=== PATIENT | female | born 1995 | race Caucasian/White ===

== ENCOUNTER 2018-03-13 19:03 | Emergency (ER) | payer OTHER ==
[2018-03-13 19:13] VITALS: BP 135/83
[2018-03-13] MEDS ORDERED: diphenhydrAMINE 50 MG/ML SDV IVPUSH ONE (19:38)
[2018-03-13] MEDS ORDERED: Metoclopramide 10 MG/2 ML SDV IVPUSH ONE (19:38)
[2018-03-13] MEDS ORDERED: Sodium Chloride 0.9% 10 ML Syringe FLUSH PRN (19:38)
[2018-03-13] MEDS ORDERED: Ketorolac 30 MG/ML SDV IVPUSH ONE (19:38)
--- NOTE | 2018-03-13 19:44 | EDM.PDOC ---
ED HPI GENERAL MEDICAL PROBLEM - General Chief Complaint: Headache Stated Complaint: HEADACHE Time Seen by Provider: 03/13/18 19:22 Source of Information: Reports: Patient, RN Notes Reviewed History Limitations: Reports: No Limitations - History of Present Illness INITIAL COMMENTS - FREE TEXT/NARRATIVE: Patient is a 22 year old female who presents to the ED for the evaluation of a headache. This has been present since this AM and has been bothersome all day. She notes a prior history of migraines. She states that she tries to take ibuprofen, tylenol, excedrin and this never provides much relief. She states that she went to work with this headache and about 1.5 hours into her shift she began to feel nauseous and dizzy as well. The headache pain started mainly on the right side of her head, in the back and radiates forward to her scalp and behind her right eye. She would rate her pain at a 7/10. She states that she is light/ and sound sensitive. She notes some mild blurriness to her right visual field. She denies any type of sinus issues or being sick otherwise. She states that she only normally gets around 3 migraines/year. Headache Pain Score (Numeric/FACES): 7 - Related Data Allergies Allergy/AdvReac Type Severity Reaction Status Date / Time No Known Allergies Allergy Verified 03/13/18 19:07 Home Meds: Home Meds . 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 History: Reports: Polycystic Ovaries Neurological History: Reports: Concussion, Migraines, Seizure Other Neuro History: 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 small child concussions in high school Psychiatric History: Reports: Anxiety, Depression Endocrine/Metabolic History: Reports: Hypothyroidism - Infectious Disease History Infectious Disease History: Reports: Human Papilloma Virus (HPV) - Past Surgical History HEENT Surgical History: Reports: Oral Surgery, Tonsillectomy Social & Family History - Family History Family Medical History: Noncontributory - Tobacco Use Smoking Status *Q: Current Every Day Smoker Years of Tobacco use: 6 Packs/Tins Daily: 1 - Caffeine Use Caffeine Use: Reports: Tea - Recreational Drug Use Recreational Drug Use: Yes Drug Use in Last 12 Months: No Recreational Drug Type: Reports: Marijuana/Hashish - Living Situation & Occupation Living situation: Reports: Single, Alone Occupation: Employed ED ROS GENERAL - Review of Systems Review Of Systems: See Below Constitutional: Reports: No Symptoms HEENT: Reports: Eye Pain (see hpi), Vertigo, Vision Change (see HPI). Denies: Ear Pain, Sinus Problem Respiratory: Reports: No Symptoms Cardiovascular: Reports: No Symptoms Endocrine: Reports: No Symptoms GI/Abdominal: Reports: No Symptoms : Reports: No Symptoms Musculoskeletal: Reports: No Symptoms Skin: Reports: No Symptoms Neurological: Reports: Headache Psychiatric: Reports: No Symptoms Hematologic/Lymphatic: Reports: No Symptoms Immunologic: Reports: No Symptoms - Physical Exam Exam: See Below Exam Limited By: No Limitations General Appearance: Alert, WD/WN, No Apparent Distress (pt is in darkened room) Eye Exam: Left Eye: EOMI ( several tics of nystagmus to leftward EOM), Nystagmus , Bilateral Eye: Normal Inspection, PERRL Ears: Normal External Exam, Normal Canal, Hearing Grossly Normal, Normal TMs Nose: Normal Inspection Throat/Mouth: Normal Inspection, Normal Teeth, Normal Oropharynx, No Airway Compromise Head Exam: Atraumatic, Normocephalic Neck: Normal Inspection, Supple, Non-Tender, Full Range of Motion Respiratory/Chest: No Respiratory Distress, Lungs Clear, Normal Breath Sounds, No Accessory Muscle Use, Chest Non-Tender Cardiovascular: Normal Peripheral Pulses, Regular Rate, Rhythm, No Murmur GI/Abdominal: Normal Bowel Sounds, Soft, Non-Tender, No Distention, No Mass Neuro Exam (Abbreviated): Alert, Oriented, Normal Cognition, Normal Reflexes, No Motor/Sensory Deficits Extremities: Normal Inspection, Normal Capillary Refill Psychiatric: Normal Affect, Normal Mood Skin Exam: Warm, Dry, Intact, Normal Color Course - Vital Signs Last Recorded V/S: Last Vital Signs Temp 97.1 F 03/13/18 19:10 Pulse 72 03/13/18 19:10 Resp 16 03/13/18 19:10 BP 135/83 03/13/18 19:10 Pulse Ox 100 03/13/18 19:10 - Orders/Labs/Meds Orders: Active Orders 24 hr Category Date Time Status Peripheral IV Care [RC] . DIRECTED Care 03/13/18 19:38 Ordered Sodium Chloride 0.9% [Normal Saline] 1,000 ml Med 03/13/18 19:45 Ordered IV ASDIRECTED Sodium Chloride 0.9% [Saline Flush] Med 03/13/18 19:38 Ordered 10 ml FLUSH ASDIRECTED PRN Peripheral IV Insertion Adult [OM.PC] Routine Oth 03/13/18 19:38 Ordered Medication Orders Sodium Chloride (Normal Saline) 1,000 mls @ 999 mls/hr IV ASDIRECTED ROYER Last Admin: 03/13/18 20:06 Dose: 999 mls/hr Sodium Chloride (Saline Flush) 10 ml FLUSH ASDIRECTED PRN PRN Reason: Keep Vein Open Last Admin: 03/13/18 20:06 Dose: 10 ml Meds: Medications Generic Name Dose Route Start Last Admin Trade Name Freq PRN Reason Stop Dose Admin Sodium Chloride 1,000 mls @ 999 mls/hr 03/13/18 19:45 03/13/18 20:06 Normal Saline IV 999 mls/hr ASDIRECTED ROYER Administration Sodium Chloride 10 ml 03/13/18 19:38 03/13/18 20:06 Saline Flush FLUSH 10 ml ASDIRECTED PRN Administration Keep Vein Open Discontinued Medications Generic Name Dose Route Start Last Admin Trade Name Freq PRN Reason Stop Dose Admin Diphenhydramine HCl 25 mg 03/13/18 19:38 03/13/18 20:04 Benadryl IVPUSH 03/13/18 19:39 25 mg ONETIME ONE Administration Ketorolac Tromethamine 30 mg 03/13/18 19:38 03/13/18 20:03 Toradol IVPUSH 03/13/18 19:39 30 mg ONETIME ONE Administration Metoclopramide HCl 10 mg 03/13/18 19:38 03/13/18 20:02 Reglan IVPUSH 03/13/18 19:39 10 mg ONETIME ONE Administration - Re-Assessments/Exams Free Text/Narrative Re-Assessment/Exam: 03/13/18 19:46 Pt presents to the ED for the evaluation of a headache. Have ordered IV with fluid bolus, 30 mg IV toradol, 10 mg IV reglan, 25 mg IV benadryl for initial management. 03/13/18 20:41 Pt re-assessed at bedside and she states that her headache feels much better and wishes to go home before the IV fluids are done, this is fine with me, patient will be discharged home. Departure - Departure Time of Disposition: 20:42 Disposition: Home, Self-Care 01 Condition: Fair Clinical Impression: Headache Qualifiers: Headache type: unspecified Headache chronicity pattern: acute headache Intractability: not intractable Qualified Code(s): R51 - Headache - Discharge Information *PRESCRIPTION DRUG MONITORING PROGRAM REVIEWED*: No *COPY OF PRESCRIPTION DRUG MONITORING REPORT IN PATIENT LING: No Instructions: Migraine Headache, [id number], General Headache Without Cause, [id number] Referrals: Karen Lees PA [Primary Care Provider] - Forms: ED Department Discharge Additional Instructions: You have been evaluated in the ED for your headache. You have been given medications to help alleviate this headache. If you should experience headaches in the near future, you can take ibuprofen 600mg every 6 hours as needed, with a little bit of caffeine as well to see if this does not provide you relief. Please return to ED if your symptoms should change or worsen. - My Orders Last 24 Hours: My Active Orders 03/13/18 19:38 Peripheral IV Care [RC] . DIRECTED Sodium Chloride 0.9% [Saline Flush] 10 ml FLUSH ASDIRECTED PRN Peripheral IV Insertion Adult [OM.PC] Routine 03/13/18 19:45 Sodium Chloride 0.9% [Normal Saline] 1,000 ml IV ASDIRECTED - Assessment/Plan Last 24 Hours: My Active Orders 03/13/18 19:38 Peripheral IV Care [RC] . DIRECTED Sodium Chloride 0.9% [Saline Flush] 10 ml FLUSH ASDIRECTED PRN Peripheral IV Insertion Adult [OM.PC] Routine 03/13/18 19:45 Sodium Chloride 0.9% [Normal Saline] 1,000 ml IV ASDIRECTED
[2018-03-13] MEDS ORDERED: Sodium Chloride 0.9% 1,000 ML IV SCH (19:45)
== END 2018-03-13 20:49 | disposition home or self-care (01) ==
LOC: JD.ED 19:03
DX: R51 Headache (principal); E03.9 Hypothyroidism, unspecified; F17.210 Nicotine dependence, cigarettes, uncomplicated
CPT/HCPCS: 96361; 96374; 96375; 99284; J1200; J1885; J2765; J7040

== ENCOUNTER 2018-11-22 09:47 | Emergency (ER) | payer BC ==
--- NOTE | 2018-11-22 10:08 | EDM.PDOC ---
ED HPI GENERAL MEDICAL PROBLEM - General Chief Complaint: Abdominal Pain Stated Complaint: R SIDE PAIN - 25 WKS PG/CLEARED BY OB Time Seen by Provider: 11/22/18 09:58 - History of Present Illness INITIAL COMMENTS - FREE TEXT/NARRATIVE: 23-year-old female presents emergency room with right upper quadrant pain and right back pain. This started last night after eating jambalaya. She's had some nausea associated with this without vomiting no fevers or chills. No breathing difficulties however if she takes a deep breath she does have some discomfort in this area. The pain in the right upper quadrant is subsiding at this point. She still has a little bit of residual back pain. She is slightly nauseated at this point. The patient is 25 weeks . She was seen by labor and delivery and was cleared to come to the emergency department. She is a 2 para 0 one miscarriage. 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: Reports: Polycystic Ovaries Neurological History: Reports: Concussion, Migraines, Seizure Other Neuro History: 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 small child concussions in high school Psychiatric History: Reports: Anxiety, Depression Endocrine/Metabolic History: Reports: Hypothyroidism - Infectious Disease History Infectious Disease History: Reports: Human Papilloma Virus (HPV) - Past Surgical History HEENT Surgical History: Reports: Oral Surgery, Tonsillectomy Social & Family History - Family History Family Medical History: Noncontributory - Caffeine Use Caffeine Use: Reports: Tea - Living Situation & Occupation Living situation: Reports: Single, Alone Occupation: Employed ED ROS GENERAL - Review of Systems Review Of Systems: See Below Constitutional: Reports: No Symptoms HEENT: Reports: No Symptoms Respiratory: Reports: No Symptoms, Other (Some discomfort with deep breathing, however, her breathing is not limited) Cardiovascular: Reports: No Symptoms Endocrine: Reports: No Symptoms GI/Abdominal: Reports: Nausea. Denies: Constipation, Diarrhea, Vomiting : Reports: No Symptoms Musculoskeletal: Reports: No Symptoms Skin: Reports: No Symptoms Neurological: Reports: No Symptoms ED EXAM, GI/ABD - Physical Exam Exam: See Below Exam Limited By: No Limitations General Appearance: Alert, No Apparent Distress, Other (Vital signs stable afebrile patient states that she is doing much better at this time then she was even when she came in to labor and delivery.) Head: Atraumatic, Normocephalic Neck: Normal Inspection, Supple, Non-Tender, Full Range of Motion. No: Lymphadenopathy (L), Lymphadenopathy (R) Respiratory/Chest: No Respiratory Distress, Lungs Clear, Normal Breath Sounds Cardiovascular: Regular Rate, Rhythm, No Edema, No Murmur GI/Abdominal Exam: Normal Bowel Sounds, Soft, Other (She really has no pain over the gallbladder at this point no palpable abdominal discomfort her discomfort is limited to her lower ribs in the back on the right) Back Exam: Normal Inspection. No: CVA Tenderness (L), CVA Tenderness (R) Extremities: Normal Inspection, No Pedal Edema Neurological: Alert, Oriented, Normal Cognition Psychiatric: Normal Affect, Normal Mood Skin Exam: Warm, Dry, Intact Course - Vital Signs Last Recorded V/S: Last Vital Signs Temp 36.4 C 11/22/18 09:50 Pulse 88 11/22/18 09:50 Resp 16 11/22/18 09:50 BP 109/69 11/22/18 09:50 Pulse Ox 99 11/22/18 09:50 - Orders/Labs/Meds Orders: Active Orders 24 hr Category Date Time Status CBC WITH MANUAL DIFF [HEME] Stat Lab 11/22/18 10:40 Results Labs: Laboratory Tests 11/22/18 11/22/18 11/22/18 Range/Units 10:30 10:40 10:40 WBC 10.90 H (3.98-10.04) K/mm3 RBC 3.85 L (3.98-5.22) M/mm3 Hgb 11.4 D (11.2-15.7) gm/dl Hct 33.6 L (34.1-44.9) % MCV 87.3 D (79.4-94.8) fl MCH 29.6 (25.6-32.2) pg MCHC 33.9 (32.2-35.5) g/dl RDW Std Deviation 39.8 (36.4-46.3) fL Plt Count 274 (182-369) K/mm3 MPV 9.2 L (9.4-12.3) fl Sodium 137 (136-145) mEq/L Potassium 3.6 (3.5-5.1) mEq/L Chloride 102 (98-107) mEq/L Carbon Dioxide 24 (21-32) mEq/L Anion Gap 14.6 (5-15) BUN 5 L (7-18) mg/dL Creatinine 0.6 (0.55-1.02) mg/dL Est Cr Clr Drug Dosing 131.22 mL/min Estimated GFR (MDRD) > 60 (>60) mL/min BUN/Creatinine Ratio 8.3 L (14-18) Glucose 79 (74-106) mg/dL Calcium 8.7 (8.5-10.1) mg/dL Total Bilirubin 0.4 (0.2-1.0) mg/dL Direct Bilirubin 0.10 (0.0-0.2) mg/dl Indirect Bilirubin 0.30 AST 11 L (15-37) U/L ALT 23 (14-59) U/L Alkaline Phosphatase 88 (46-116) U/L Total Protein 6.8 (6.4-8.2) g/dl Albumin 2.7 L (3.4-5.0) g/dl Globulin 4.1 gm/dL Albumin/Globulin Ratio 0.7 L (1-2) Urine Color Yellow (Yellow) Urine Appearance Clear (Clear) Urine pH 7.5 (5.0-8.0) Ur Specific [place] 1.020 (1.005-1.030) Urine Protein Negative (Negative) Urine Glucose (UA) Negative (Negative) Urine Ketones Negative (Negative) Urine Occult Blood Negative (Negative) Urine Nitrite Negative (Negative) Urine Bilirubin Negative (Negative) Urine Urobilinogen 0.2 (0.2-1.0) Ur Leukocyte Esterase Negative (Negative) Urine RBC 0-5 (0-5) /hpf Urine WBC 0-5 (0-5) /hpf Ur Squamous Epith Cells 0-5 (0-5) /hpf Urine Bacteria Few (FEW) /hpf Urine Mucus Few (FEW) /hpf - Re-Assessments/Exams Free Text/Narrative Re-Assessment/Exam: 11/22/18 11:22 Right upper quadrant pain is pretty much gone back pain is minimal. Urinalysis does not suggest any blood or signs of infection rate white count is minimally and undoubtedly insignificantly elevated at 10,800 this could be related to the . Chemistries are normal no elevated transaminases both direct and indirect bili are normal electrolytes within normal limits. Case reviewed with Dr. Hadley, on-call for Dr. Boothe, the patient will be scheduled for an outpatient gallbladder ultrasound and the patient will follow-up with Dr. Boothe the day after the ultrasound. Patient will continue use Tylenol as needed for discomfort. Departure - Departure Time of Disposition: 11:25 Disposition: Home, Self-Care 01 Clinical Impression: Right upper quadrant abdominal pain affecting - Discharge Information Referrals: Chilo Boothe MD [Primary Care Provider] - Forms: ED Department Discharge Additional Instructions: Return to emergency room if any questions problems worsening symptoms. Return immediately if he developed a fever. Get the gallbladder ultrasound done as scheduled. Use Tylenol as needed for discomfort rated. Push lots of fluids avoid fatty meals. - My Orders Last 24 Hours: My Active Orders 11/22/18 10:40 CBC WITH MANUAL DIFF [HEME] Stat - Assessment/Plan Last 24 Hours: My Active Orders 11/22/18 10:40 CBC WITH MANUAL DIFF [HEME] Stat
[2018-11-22 11:46] VITALS: BP 114/65; PULSE 85
--- NOTE | 2018-11-23 08:29 | PCM.SN ---
- Free Text/Narrative Note: 23-year-old estimated date of delivery 03/06/2019 resented to labor and delivery on 11/22/18.5 weeks estimated gestational age complaining of right upper quadrant pain. She's had this pain for over a year and a half it comes and goes. Patient was seen in labor and delivery to confirm no contractions. Blood pressure was normal. Cervix long close posterior firm. Patient sent to the emergency room for evaluation of right upper quadrant pain. See their note. [id number].25 Right upper quadrant pain.
== END 2018-11-22 11:45 | disposition home or self-care (01) ==
LOC: JD.ED 09:47
DX: O26.892 Other specified pregnancy related conditions, second trimester (principal); R10.11 Right upper quadrant pain; O99.512 Diseases of the respiratory system complicating pregnancy, second trimester; J45.909 Unspecified asthma, uncomplicated; Z88.8 Allergy status to other drugs, medicaments and biological substances; Z3A.25 25 weeks gestation of pregnancy
CPT/HCPCS: 36415; 80048; 80076; 81001; 85007; 85027; 99282; 99284

== ENCOUNTER 2019-03-05 06:54 | Inpatient (IN) | payer BC ==
[~2019-03-05 06:54] MED LIST: Bupivacaine 0.25% 10 ML SDV ONE; Lidocaine 2% with EPINEPHrine 1:200,000 20 ML SDV ONE; Sodium Bicarbonate 8.4% 50 MEQ/50 ML SDV ONE
[2019-03-05] MEDS ORDERED: Sodium Chloride 0.9% 10 ML Syringe FLUSH PRN (07:07)
[2019-03-05] MEDS ORDERED: Nalbuphine 10 MG/ML Syringe IVPUSH PRN (07:07)
[2019-03-05] MEDS ORDERED: Ondansetron 4 MG/2 ML SDV IVPUSH PRN (07:07)
[2019-03-05] MEDS ORDERED: Oxytocin/Lactated Ringers 10 UNIT/1,000 ML BAG IV SCH (07:15)
[2019-03-05] MEDS ORDERED: ePHEDrine 50 MG/ML SDV IVPUSH PRN (07:28)
[2019-03-05] MEDS ORDERED: diphenhydrAMINE 50 MG/ML SDV IVPUSH PRN (07:28)
[2019-03-05] MEDS: Lactated Ringers 1,000 ML IV SCH ×4 (07:49→21:52)
[2019-03-05] MEDS: Oxytocin/Lactated Ringers 10 UNIT/1,000 ML BAG IV SCH ×2 (07:49→18:52)
--- NOTE | 2019-03-05 10:31 | PCM.PREANE ---
Preanesthetic Assessment - Procedure Proposed Procedure: maria a - Anesthesia/Transfusion/Family Hx Anesthesia History: Prior Anesthesia Without Reaction Family History of Anesthesia Reaction: No Transfusion History: No Prior Transfusion(s) - Review of Systems General: No Symptoms Pulmonary: No Symptoms Cardiovascular: No Symptoms Gastrointestinal: No Symptoms Neurological: No Symptoms Other: Reports: Anxiety - Physical Assessment Vital Signs: Last Vital Signs Temp 98.5 F 03/05/19 07:07 Pulse 102 H 03/05/19 07:07 Resp 16 03/05/19 07:07 BP 130/76 03/05/19 07:07 Pulse Ox 95 03/05/19 07:07 Height: 5 ft 5 in Weight: 99.337 kg ASA Class: 2 Mental Status: Alert & Oriented x3 Airway Class: Mallampati = 1 Dentition: Reports: Normal Dentition Thyro-Mental Finger Breadths: 3 Mouth Opening Finger Breadths: 3 ROM/Head Extension: Full Lungs: Clear to Auscultation, Normal Respiratory Effort Cardiovascular: Regular Rate, Regular Rhythm - Lab Values: Laboratory Last Values WBC 12.02 K/mm3 (3.98-10.04) H 03/05/19 07:32 RBC 3.99 M/mm3 (3.98-5.22) 03/05/19 07:32 Hgb 11.2 gm/dl (11.2-15.7) 03/05/19 07:32 Hct 33.8 % (34.1-44.9) L 03/05/19 07:32 MCV 84.7 fl (79.4-94.8) 03/05/19 07:32 MCH 28.1 pg (25.6-32.2) 03/05/19 07:32 MCHC 33.1 g/dl (32.2-35.5) 03/05/19 07:32 RDW Std Deviation 42.2 fL (36.4-46.3) 03/05/19 07:32 Plt Count 280 K/mm3 (182-369) 03/05/19 07:32 MPV 10.0 fl (9.4-12.3) 03/05/19 07:32 Neut % (Auto) 78.5 % (34.0-71.1) H 03/05/19 07:32 Lymph % (Auto) 13.9 % (19.3-51.7) L 03/05/19 07:32 Lares % (Auto) 6.2 % (4.7-12.5) 03/05/19 07:32 Eos % (Auto) 0.9 (0.7-5.8) 03/05/19 07:32 Baso % (Auto) 0.1 % (0.1-1.2) 03/05/19 07:32 Neut # (Auto) 9.43 K/mm3 (1.56-6.13) H 03/05/19 07:32 Lymph # (Auto) 1.67 K/mm3 (1.18-3.74) 03/05/19 07:32 Lares # (Auto) 0.75 K/mm3 (0.24-0.36) H 03/05/19 07:32 Eos # (Auto) 0.11 K/mm3 (0.04-0.36) 03/05/19 07:32 Baso # (Auto) 0.01 K/mm3 (0.01-0.08) 03/05/19 07:32 Manual Slide Review Normal smear 03/05/19 07:32 - Allergies Allergies/Adverse Reactions: Allergies Allergy/AdvReac Type Severity Reaction Status Date / Time No Known Allergies Allergy Verified 03/05/19 07:06 - Blood Blood Available: No - Acknowledgements Anesthesia Type Planned: Epidural Pt an Appropriate Candidate for the Planned Anesthesia: Yes Alternatives and Risks of Anesthesia Discussed w Pt/Guardian: Yes Pt/Guardian Understands and Agrees with Anesthesia Plan: Yes PreAnesthesia Questionnaire - Past Health History Medical/Surgical History: Denies Medical/Surgical History Cardiovascular History: Reports: None Respiratory History: Reports: Asthma Other Respiratory History: out grew it Gastrointestinal History: Reports: GERD Genitourinary History: Reports: Renal Calculus 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: , 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 Musculoskeletal History: Reports: Fracture Other Musculoskeletal History: 4 broken arms, broken nose x 2 Neurological History: Reports: Concussion, Migraines, Seizure Other Neuro History: 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 small child concussions in high school Psychiatric History: Reports: Anxiety, Depression Endocrine/Metabolic History: Reports: Hypothyroidism Hematologic History: Reports: Anemia - Infectious Disease History Infectious Disease History: Reports: MRSA Other Infectious Disease History: With T&A, reports she has been cleared - Past Surgical History HEENT Surgical History: Reports: Oral Surgery, Tonsillectomy - History Comment History Comment: vits - SUBSTANCE USE Smoking Status *Q: Former Smoker (quit 2 years ago) Tobacco Use Within Last Twelve Months: No Second Hand Smoke Exposure: No Days Per Week of Alcohol Use: 0 Recreational Drug Use History: No - HOME MEDS Home Medications: Home Meds . [No Known Home Meds] 03/05/19 [History] - CURRENT (IN HOUSE) MEDS Current Meds: Current Medications Diphenhydramine HCl (Benadryl) 25 mg IVPUSH Q6H PRN PRN Reason: pruritis Ephedrine Sulfate (Ephedrine Sulfate) 5 mg IVPUSH ASDIRECTED PRN PRN Reason: Hypotension Fentanyl (Sublimaze) 100 mcg EPIDUR Q3H PRN PRN Reason: Pain Fentanyl/Bupivacaine HCl (Fentanyl/Bupivacaine/Ns 2 Mcg-0.125% 100 Ml) 100 ml EPIDUR CONTINUOUS PRN PRN Reason: Pain Lactated Ringer's (Ringers, Lactated) 1,000 mls @ 100 mls/hr IV ASDIRECTED ROYER Last Admin: 03/05/19 07:49 Dose: 100 mls/hr Oxytocin/Lactated Ringer's (Pitocin In Lr 10 Units/1,000 Ml) 10 unit in 1,000 mls @ 500 mls/hr IV .CONTINUOUS ROYER Oxytocin/Lactated Ringer's (Pitocin In Lr 10 Units/1,000 Ml) 10 unit in 1,000 mls @ 12 mls/hr IV TITRATE ROYER; Protocol Last Titration: 03/05/19 09:28 Dose: 12 munits/min, 72 mls/hr Nalbuphine HCl (Nubain) 10 mg IVPUSH Q2H PRN PRN Reason: Pain Ondansetron HCl (Zofran) 4 mg IVPUSH Q4H PRN PRN Reason: Nausea/Vomiting Sodium Chloride (Saline Flush) 10 ml FLUSH ASDIRECTED PRN PRN Reason: Keep Vein Open
[2019-03-05] MEDS: Bupivacaine/fentaNYL/NS 100 ML Bag EPIDUR PRN ×2 (13:12→21:51)
[2019-03-05] MEDS: fentaNYL 100 MCG/2 ML SDV EPIDUR PRN (13:12)
--- NOTE | 2019-03-05 18:53 | PCM.LDHP ---
L&D History of Present Illness - General Date of Service: 03/05/19 Admit Problem/Dx: Patient Status Order with Admit Dx/Problem 03/05/19 07:07 Patient Status [ADT] Routine Admission Diagnosis/Problem Admission Diagnosis/Problem 03/05/19 18:41 Jordyn is a 23-year-old 2 para 0010 white female who was admitted for elective induction of labor on 03/05/2019 at 39-6/7 weeks gestational age with an QAMAR of 03/06/2019. Source of Information: Patient History Limitations: Reports: No Limitations - History of Present Illness Introduction:: Jordyn is a 23-year-old 2 para 0010 white female who was admitted for elective induction of labor on 03/05/2019 at 39-6/7 weeks gestational age with an QAMAR of 03/06/2019.The procedure, risks, benefits, alternatives of care including allowing for natural onset of labor discussed in detail with patient. She appears to understand and wishes to proceed. Discussion is held her as to initially use of Pitocin followed by artificial rupture membranes to induce labor. 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 QAMAR 03/06/2019 as determined by a certain last menstrual period starting 05/30/2018 and confirmed by at least 3 ultrasounds done in clinic on 07/16/2018 at 6-4/7 weeks gestational age, at 19-3/ 7 weeks gestational age and at 24-0/7 weeks gestational age. Her course started on 07/16/2018 with initial ultrasound evaluation confirming viability and intrauterine presence of the . She was seen on a regular basis throughout the . Her weight gain was from 189 pounds to 214 pounds for a 25 pound weight gain. Vital signs are stable throughout the course. Group B strep screen is negative. Patient is planning on epidural in labor. She declines flu vaccination during course of . Her last [place] depression screening score was 12/30. This was done on 01/15/2019. Prior to that on 10/25/2018 her e- PDS was 15. She has a history of hypothyroidism. She reports she did not medication since she was 15 however. She plans to breast-feed. Her [place] noninvasive screen was negative. Patient had her T dap which was given on 12/27/2018. She had her hepatitis B immunizations in 2013. labs: Blood is a positive with a negative MRI screening. First hemoglobin was 13.6 g/dL. Platelets were 218,000. Rubella titer shows immunity. RPR nonreactive. Urine culture was negative. Hepatitis B surface antigen and HIV assays were both negative. Chlamydia and gonorrhea tests were both negative. Second trimester hemoglobin was 11.4 g/dL which time patient was started on iron sulfate at 325 mg per day. Her platelets were 306,000. Her 1 hour glucose times test was 149 which was elevated. Should this was followed by a three-hour GTT showed a fasting blood sugar of 85, 1 hour glucose of 152, a 2 hour glucose of 127, a three-hour glucose of 95. Third trimester RPR 11/28/2018 was nonreactive. Herpes strep screen was negative. Allergies: None Medications: 1. vitamins daily 2. Ferrous sulfate 325 mg by mouth daily Past medical history: 1. History of anxiety 2. History of hyperthyroidism diagnosed and she is 6 foot was taken off meds at age 15. 3. History of miscarriage 4. Fracture of right arm 3 and fracture of left arm 1. 5. Nasal fractures 2 Past surgical history: 1. Teen 8 2007 2. [place] teeth extraction Family history: Mother is alive and well but with hypothyroidism on medications. Father is alive on medications for high blood pressure, hypothyroid on medication. One brother is alive and well. Paternal grandmother mother is alive and well but did have PCOS. She has a history of miscarriage Maternal grandfather is causes unknown. Paternal grandmother is alive and well on medications for hypothyroidism. Paternal grandfather is secondary to causes unknown. There is no family history of cancer, bleeding or blood clotting disorders, anesthesia related issues or problems. Social history: Patient is single. Significant other is Maciel Mehta. She does not use any significant most alcohol, drugs or tobacco. 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 He lives in [place], [place]. Review of systems: In general patient has no complaints. Baby has been active. No significant contractions noted. Skin: Negative Lungs: No infectious symptoms or shortness of breath Cardiovascular: No chest pain or exercise intolerance Breasts: Increased size tenderness related to .. GI: Negative : Body habitus changes related to . Musculoskeletal: Negative Neurological: Negative In general the patient is well-developed, well-nourished, pleasant female of stated age in no acute distress. On last evaluation in clinic on 03/04/2019 patient's blood pressures 122/68. Weight was 214.8 pounds. Pregravid weight was 189 pounds. Height is 5 feet 5 inches. Pregravid gravid BMI was 31.9. Skin is warm dry without lesions. HEENT, neck and back within normal limits. Lungs are clear with good breath sounds in all lung nevarez. Cardiovascular exam shows regular and rhythm without murmurs. Breast exam is deferred at this time having been done first visit and found to be normal. Is planning on breast-feeding. Abdomen is gravid with last fundal height in clinic at 39 cm. Baby in vertex presentation.. Genital digital exam done in clinic 03/04/2019 shows cervix to be 2 cm dilated, 80% effaced, soft, mid position, -3 station.. Extremities and neurological exam are grossly within normal limits. Pain Score: 7 - Related Data Allergies/Adverse Reactions: Allergies Allergy/AdvReac Type Severity Reaction Status Date / Time No Known Allergies Allergy Verified 03/05/19 07:06 Home Medications: Home Meds . [No Known Home Meds] 03/05/19 [History] Past Medical History - Past Health History Medical/Surgical History: Denies Medical/Surgical History Cardiovascular History: Reports: None Respiratory History: Reports: Asthma Other Respiratory History: out grew it Gastrointestinal History: Reports: GERD Genitourinary History: Reports: Renal Calculus DRINK MIXER History: Reports: , Spontaneous Musculoskeletal History: Reports: Fracture Other Musculoskeletal History: 4 broken arms, broken nose x 2 Neurological History: Reports: Concussion, Migraines, Seizure Other Neuro History: 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 small child concussions in high school Psychiatric History: Reports: Anxiety, Depression Endocrine/Metabolic History: Reports: Hypothyroidism Hematologic History: Reports: Anemia - Infectious Disease History Infectious Disease History: Reports: MRSA Other Infectious Disease History: With T&A, reports she has been cleared - Past Surgical History HEENT Surgical History: Reports: Oral Surgery, Tonsillectomy - History Comment History Comment: vits Social & Family History - Family History Family Medical History: Noncontributory - Tobacco Use Smoking Status *Q: Former Smoker (quit 2 years ago) Second Hand Smoke Exposure: No - Caffeine Use Caffeine Use: Reports: None - Alcohol Use Days Per Week of Alcohol Use: 0 - Recreational Drug Use Recreational Drug Use: No - Living Situation & Occupation Living situation: Reports: Single, Alone Occupation: Employed H&P Review of Systems - Review of Systems: Review Of Systems: See Below L&D Exam - Exam Exam: See Below - Vital Signs Vital Signs: Last Vital Signs Temp 36.9 C 03/05/19 07:07 Pulse 102 H 03/05/19 07:07 Resp 16 03/05/19 07:07 BP 130/76 03/05/19 07:07 Pulse Ox 95 03/05/19 07:07 Weight: 99.337 kg - Patient Data Lab Results Last 24 hrs: Laboratory Results - last 24 hr 03/05/19 Range/Units 07:32 WBC 12.02 H (3.98-10.04) K/mm3 RBC 3.99 (3.98-5.22) M/mm3 Hgb 11.2 (11.2-15.7) gm/dl Hct 33.8 L (34.1-44.9) % MCV 84.7 (79.4-94.8) fl MCH 28.1 (25.6-32.2) pg MCHC 33.1 (32.2-35.5) g/dl RDW Std Deviation 42.2 (36.4-46.3) fL Plt Count 280 (182-369) K/mm3 MPV 10.0 (9.4-12.3) fl Neut % (Auto) 78.5 H (34.0-71.1) % Lymph % (Auto) 13.9 L (19.3-51.7) % [place] % (Auto) 6.2 (4.7-12.5) % Eos % (Auto) 0.9 (0.7-5.8) Baso % (Auto) 0.1 (0.1-1.2) % Neut # (Auto) 9.43 H (1.56-6.13) K/mm3 Lymph # (Auto) 1.67 (1.18-3.74) K/mm3 [place] # (Auto) 0.75 H (0.24-0.36) K/mm3 Eos # (Auto) 0.11 (0.04-0.36) K/mm3 Baso # (Auto) 0.01 (0.01-0.08) K/mm3 Manual Slide Review Normal smear Result Diagrams: 03/05/19 07:32 Problem List Initiated/Reviewed/Updated: Yes Orders Last 24hrs: Active Orders 24 hr Category Date Time Status Patient Status [ADT] Routine ADT 03/05/19 07:07 Active Activity as Tolerated [RC] PFP Care 03/05/19 07:07 Active Communication Order [RC] ASDIRECTED Care 03/05/19 07:07 Active Heart Tones [RC] ASDIRECTED Care 03/05/19 07:07 Active Non Stress Test [RC] PER UNIT ROUTINE Care 03/05/19 07:07 Active Notify Provider [RC] ASDIRECTED Care 03/05/19 07:28 Active Notify Provider [RC] PFP Care 03/05/19 07:07 Active Notify Provider [RC] PRN Care 03/05/19 07:07 Active Peripheral IV Care [RC] . DIRECTED Care 03/05/19 07:07 Active Vital Signs [RC] PER UNIT ROUTINE Care 03/05/19 07:07 Active Regular Diet [DIET] Diet 03/05/19 Breakfast Active RAPID PLASMA REAGIN,RPR [CHEM] Routine Lab 03/05/19 07:32 Received Bupivacaine/fentaNYL/NS [fentaNYL/Bupivacaine/NS 2 MCG- Med 03/05/19 07:28 Active 0.125% 100 ML] 100 ml EPIDUR CONTINUOUS PRN Lactated Ringers [Ringers, Lactated] 1,000 ml Med 03/05/19 07:15 Active IV ASDIRECTED Nalbuphine [Nubain] Med 03/05/19 07:07 Active 10 mg IVPUSH Q2H PRN Ondansetron [Zofran] Med 03/05/19 07:07 Active 4 mg IVPUSH Q4H PRN Oxytocin/Lactated Ringers [Pitocin in LR 10 Units/1,000 Med 03/05/19 07:15 Active ML] 10 unit in 1,000 ml IV .CONTINUOUS Oxytocin/Lactated Ringers [Pitocin in LR 10 Units/1,000 Med 03/05/19 07:15 Active ML] 10 unit in 1,000 ml IV TITRATE Sodium Chloride 0.9% [Saline Flush] Med 03/05/19 07:07 Active 10 ml FLUSH ASDIRECTED PRN diphenhydrAMINE [Benadryl] Med 03/05/19 07:28 Active 25 mg IVPUSH Q6H PRN ePHEDrine [ePHEDrine sulfate] Med 03/05/19 07:28 Active 5 mg IVPUSH ASDIRECTED PRN fentaNYL [Sublimaze] Med 03/05/19 07:28 Active 100 mcg EPIDUR Q3H PRN Electronic Heart Tones Ext w TOCO [WOMSER] Oth 03/05/19 07:07 Ordered Routine Electronic Heart Tones Internal [WOMSER] Per Unit Oth 03/05/19 07:07 Ordered Routine Peripheral IV Insertion Adult [OM.PC] Routine Oth 03/05/19 07:07 Ordered Resuscitation Status Routine Resus Stat 03/05/19 07:07 Ordered Medication Orders Diphenhydramine HCl (Benadryl) 25 mg IVPUSH Q6H PRN PRN Reason: pruritis Ephedrine Sulfate (Ephedrine Sulfate) 5 mg IVPUSH ASDIRECTED PRN PRN Reason: Hypotension Fentanyl (Sublimaze) 100 mcg EPIDUR Q3H PRN PRN Reason: Pain Last Admin: 03/05/19 13:12 Dose: 100 mcg Fentanyl/Bupivacaine HCl (Fentanyl/Bupivacaine/Ns 2 Mcg-0.125% 100 Ml) 100 ml EPIDUR CONTINUOUS PRN PRN Reason: Pain Last Admin: 03/05/19 13:12 Dose: 100 ml Lactated Ringer's (Ringers, Lactated) 1,000 mls @ 100 mls/hr IV ASDIRECTED ROYER Last Admin: 03/05/19 16:41 Dose: 100 mls/hr Infusion: 03/05/19 16:41 Dose: 999 mls/hr Admin: 03/05/19 13:10 Dose: 999 mls/hr Infusion: 03/05/19 13:10 Dose: 100 mls/hr Admin: 03/05/19 07:49 Dose: 100 mls/hr Oxytocin/Lactated Ringer's (Pitocin In Lr 10 Units/1,000 Ml) 10 unit in 1,000 mls @ 500 mls/hr IV .CONTINUOUS ROYER Oxytocin/Lactated Ringer's (Pitocin In Lr 10 Units/1,000 Ml) 10 unit in 1,000 mls @ 12 mls/hr IV TITRATE ROYER; Protocol Last Titration: 03/05/19 14:15 Dose: 16 munits/min, 96 mls/hr Titration: 03/05/19 13:00 Dose: 14 munits/min, 84 mls/hr Titration: 03/05/19 11:30 Dose: 18 munits/min, 108 mls/hr Titration: 03/05/19 11:00 Dose: 16 munits/min, 96 mls/hr Titration: 03/05/19 10:30 Dose: 14 munits/min, 84 mls/hr Titration: 03/05/19 09:28 Dose: 12 munits/min, 72 mls/hr Titration: 03/05/19 09:00 Dose: 10 munits/min, 60 mls/hr Titration: 03/05/19 08:35 Dose: 8 munits/min, 48 mls/hr Titration: 03/05/19 08:20 Dose: 6 munits/min, 36 mls/hr Titration: 03/05/19 08:05 Dose: 4 munits/min, 24 mls/hr Admin: 03/05/19 07:49 Dose: 2 munits/min, 12 mls/hr Nalbuphine HCl (Nubain) 10 mg IVPUSH Q2H PRN PRN Reason: Pain Last Admin: 03/05/19 13:12 Dose: 10 mg Ondansetron HCl (Zofran) 4 mg IVPUSH Q4H PRN PRN Reason: Nausea/Vomiting Sodium Chloride (Saline Flush) 10 ml FLUSH ASDIRECTED PRN PRN Reason: Keep Vein Open Assessment/Plan Comment:: 1. 39-6/7 week intrauterine with an QAMAR of 03/06/2019 admitted for elective induction of labor with Pitocin/artificial rupture membranes. 2. Group B strep screen negative 3. Patient plans to breast-feed. 4. Patient desires epidural for labor pain control 5. noninvasive genetic screen [place]) is negative 6. Patient declined flu immunization 7. Patient is rubella immune 8. The patient did receive her diphtheria, pertussis, tetanus immunization in did receive her T-dap vaccination during . Plan: 1. Pitocin induction of labor with AROM augmentation. 2. Epidural when necessary 3. CBC and RPR on admission per protocol 4. Anticipate normal spontaneous vaginal delivery 5. Routine labor care.
[2019-03-05] MEDS ORDERED: Acetaminophen 325 MG Tab PO PRN (19:47)
[2019-03-05] MEDS: Acetaminophen 325 MG Tab PO PRN (23:56)
[2019-03-06] MEDS: Lactated Ringers 1,000 ML IV SCH (00:45)
[2019-03-06] MEDS ORDERED: Ampicillin 2 GM AdvVial IV ONE (00:48)
[2019-03-06] MEDS: Ampicillin 2 GM in Sodium Chloride 0.9% 100 ML IV SCH ×3 (00:50→10:45)
[2019-03-06] MEDS: Bupivacaine/fentaNYL/NS 100 ML Bag EPIDUR PRN (03:42)
[2019-03-06] MEDS: Acetaminophen 325 MG Tab PO PRN (04:50)
[2019-03-06] MEDS ORDERED: Metoclopramide 10 MG/2 ML SDV ONE (07:08)
[2019-03-06] MEDS ORDERED: Citric Acid/Sodium Citrate Solution 30 ML Cup ONE (07:08)
[2019-03-06] MEDS ORDERED: Azithromycin 500 MG in Sodium Chloride 0.9% 250 ML IV ONE (07:11)
[2019-03-06] MEDS ORDERED: ceFAZolin 2 GM in Premix Bag 1 BAG IV ONE (07:11)
[2019-03-06] MEDS ORDERED: Citric Acid/Sodium Citrate Solution 30 ML Cup PO ONE (07:11)
[2019-03-06] MEDS ORDERED: Metoclopramide 10 MG/2 ML SDV IVPUSH ONE (07:11)
[2019-03-06] MEDS ORDERED: Morphine PF 10 MG/10 ML SDV ONE (07:13)
[2019-03-06] MEDS ORDERED: Bupivacaine 0.5% 30 ML SDV ONE (07:13)
[2019-03-06] MEDS ORDERED: Ondansetron 4 MG/2 ML SDV ONE (07:13)
[2019-03-06] MEDS ORDERED: ceFAZolin 1 GM Vial ONE (07:13)
[2019-03-06] MEDS ORDERED: Oxytocin 10 Units/1 ML SDV ONE ×2 (07:13→08:16)
[2019-03-06] MEDS ORDERED: Ketorolac 30 MG/ML SDV ONE (07:13)
[2019-03-06] MEDS ORDERED: Lactated Ringers 2,000 ML ONE (07:13)
--- NOTE | 2019-03-06 07:18 | PCM.SN ---
- Free Text/Narrative Note: Labor progress note: Jordyn was induced starting on the a.m. of 02/25/2019. She made slow progress to approximately 3-4 centers and more rapid progress to 8 cm. Since that time patient has slowed in her continued progression of dilation and descent. She became completely dilated at approximately 0430 hrs. on 03/06/2019. Contraction intensity and frequency has been monitored for the last 5 hours with an internal pressure catheter. Contractions are felt to be adequate with adequate [place] units noted. She has brought the baby's head down to +3 station with significant caput termination. She has however failed to bring it passed that area and deliver. Discussion is held with her as to options of therapy including an attempt at vacuum extraction delivery, its risks, benefits and limitations. Also a primary section. Risks benefits and limitations and follow-up. She appears understand and wishes to proceed to primary section. Assessment: 1. 40-0/7 week intrauterine , failure to progress with suspected large baby. 2. Low degree of fever and patient has been on ampicillin started during labor. 3. Relatively low risk for surgery. Plan: 1. Routine preoperative prep including Reglan and Bicitra. Consent has been signed. 2. Type and screen will be done. 3. Primary lower uterine segment transverse section through Eduardo skin incision. Will attempt to use epidural catheter for epidural anesthesia for the surgeon section. No 4. DVT prophylaxis with SCDs 5. Infection prophylaxis with 2 g Ancef preop will also give azithromycin per protocol because of labor/rupture membranes and low-grade fever.
[2019-03-06] MEDS: fentaNYL 100 MCG/2 ML SDV EPIDUR PRN (07:25)
[2019-03-06] MEDS ORDERED: Lactated Ringers 1,000 ML ONE (08:15)
[2019-03-06] MEDS ORDERED: diphenhydrAMINE 50 MG/ML SDV IVPUSH PRN ×2 (08:23→10:27)
[2019-03-06] MEDS ORDERED: Ondansetron 4 MG/2 ML SDV IVPUSH PRN (08:23)
--- NOTE | 2019-03-06 08:55 | PCM.OPNOTE ---
- General Post-Op/Procedure Note Date of Surgery/Procedure: 03/06/19 Operative Procedure(s): Primary lower uterine segment transverse section through Pfannenstiel skin incision under epidural anesthesia Findings: Uterus, tubes and ovaries consistent with normal term . Baby in vertex presentation. head in a right occiput posterior position. Amniotic fluid clear. Male weighing 8 lbs. 6 oz. (3810 g), Apgars of 9 and 9 born at 0757 on 03/06/2019. Pre Op Diagnosis: 1. 40-0/7 week . 2. Failure to progresssecond stage of labor Post-Op Diagnosis: Same Anesthesia Technique: Epidural, Local Other Anesthesia Type: Marcaine 0.5%20 mL totallocal Primary Surgeon: Chilo Boothe Secondary Surgeon: Luther Hadley Anesthesia Provider: Kenneth Kapadia Test Grader: Christiano Duvall Reason Test Grader Was Necessary: Retraction, assistance, patient safety, quality of care. Fluid Replacement, Intraop: 2,000 Output, Urine Amount: 300 EBL in mLs: 600 Drain/Tube Comments:: Indwelling bladder catheter Complications: None Condition: Good Free Text/Narrative:: Intake & Output 03/05/19 03/06/19 03/06/19 22:59 06:59 14:59 Intake Total 3950 2200 Output Total 800 1400 Balance 3150 800 Surgery duration: 40 minutes Surgery duration: Procedure: The patient is appropriately consented. Patient was transferred to the room and placed in a sitting position. Spinal anesthesia was administered. After confirmation of adequate anesthesia patient was placed in a supine position with a wedge under her right side to facilitate left lateral positioning. The patient was prepped and draped in usual fashion after Sullivan catheter was already placed . The anesthetic was checked and found to be adequate. 20 mL of Marcaine 0.5% was injected locally in the Pfannenstiel incision site. The Pfannenstiel skin incision was then made and carried down through skin, subcutaneous and fascial layers. The fascia was then undermined superiorly and inferiorly to allow for adequate operating room. The recti muscles midline and preperitoneal fat was bluntly dissected. Peritoneal cavity was entered longitudinally. The vesicouterine peritoneum was then incised transversely and bladder flap was developed. Myometrium was incised transversely to the level of the amniotic sac. This incision was extended bilaterally in a blunt fashion. The amniotic sac was then ruptured resulting in clear amniotic fluid. A hand is placed in the low uterine segment and the baby's head was brought forth through the incision. The baby was completely delivered using fundal pressure in a routine fashion. The nose and mouth were bulb suctioned. Baby's cord was clamped x2 cut and baby was handed off to attending sharepoint analyst Dr Castro. Placenta was expressed after cord blood was obtained. Uterus was then exteriorized to allow for easier closure. The cervix was assessed and found to be dilated adequately to allow egress of blood. The uterus was closed in 2 layers. The first layer a running locked suture of 0 Monocryl, the second layer a running locked vertical mattress suture of 0 Monocryl. Hemostasis confirmed at this time. Sponge instrument needle counts are correct. The uterus was returned to the abdominal cavity and lateral gutters were cleared of blood. Once again sponge needle counts are correct. The anterior abdominal wall was closed with a #1 PDS suture from angle to angle. The subcutaneous area was found to be free of any bleeders. Skin was closed with a running subcuticular stitch of 3-0 Monocryl in a vertical mattress suture fashion using a David needle. Prineo mesh/glue was then applied to further approximate the incision. It should be noted that patient received 2 g of Ancef preoperatively for infection prophylaxis and had Pitocin infused after delivery of the placenta to facilitate uterine contraction. She also had sequential compression stockings in place for DVT prophylaxis. Patient was discharged from the operating room in satisfactory condition.
--- NOTE | 2019-03-06 09:13 | PCM.POSTAN ---
POST ANESTHESIA ASSESSMENT - MENTAL STATUS Mental Status: Alert, Oriented - VITAL SIGNS Vital Signs: Last Vital Signs Temp 98.2 F 03/06/19 09:00 Pulse 62 03/06/19 09:00 Resp 15 03/06/19 09:00 BP 106/55 L 03/06/19 09:00 Pulse Ox 95 03/06/19 09:00 - RESPIRATORY Respiratory Status: Respiratory Rate WNL, Airway Patent, O2 Saturation Stable, Supplemental Oxygen - CARDIOVASCULAR CV Status: Pulse Rate WNL, Blood Pressure Stable - GASTROINTESTINAL GI Status: No Symptoms - PAIN Pain Score: 0 (post epidural) - POST OP HYDRATION Hydration Status: Adequate & Stable
[2019-03-06] MEDS ORDERED: Ondansetron 4 MG/2 ML SDV IV PRN (10:27)
[2019-03-06] MEDS ORDERED: Dextrose 5%-Lactated Ringers 1,000 ML IV SCH (10:27)
[2019-03-06] MEDS ORDERED: Naloxone 0.4 MG/ML SDV IVPUSH PRN (10:27)
[2019-03-06] MEDS ORDERED: ePHEDrine 50 MG/ML SDV IVPUSH PRN (10:27)
[2019-03-06] MEDS ORDERED: Docusate Sodium 100 MG Cap PO PRN (10:27)
[2019-03-06] MEDS: Prenatal Multivitamin with Calcium/Folic Acid/Iron Tab PO SCH (10:47)
[2019-03-06] MEDS: Ibuprofen 800 MG Tab PO SCH ×2 (14:24→22:02)
[2019-03-07] MEDS: Acetaminophen/oxyCODONE 325-5 MG Tab PO PRN ×3 (00:48→22:03)
--- NOTE | 2019-03-07 05:58 | PCM.SN ---
- Free Text/Narrative Note: note: Postoperative day one Patient is doing well in the period. Minimal lochia, voiding well, ambulated without problems. Nursing without concerns. Pain control is adequate. Patient is afebrile, vital signs are stable Abdomen is flat, soft, uterus is below the umbilicus and is firm and nontender. Incisions intact relatively dry. Legs are nontender. Assessment: /postoperative day #1 recovery going well. Plan: Routine care. Please activity. DC IV and Sullivan. CBC pending Patient be discharged home within the next 24-48 hours.
[2019-03-07] MEDS: Ibuprofen 800 MG Tab PO SCH ×3 (06:15→21:55)
[2019-03-07] MEDS: Prenatal Multivitamin with Calcium/Folic Acid/Iron Tab PO SCH (14:02)
--- NOTE | 2019-03-07 15:38 | PCM48HPAN ---
Post Anesthesia Note - EVALUATION WITHIN 48HRS OF ANESTHETIC Vital Signs in Normal Range: Yes Patient Participated in Evaluation: Yes Respiratory Function Stable: Yes Airway Patent: Yes Cardiovascular Function Stable: Yes Hydration Status Stable: Yes Nausea and Vomiting Control Satisfactory: Yes Mental Status Recovered: Yes Vital Signs: Last Vital Signs Temp 99.1 F 03/07/19 15:20 Pulse 87 03/07/19 14:08 Resp 16 03/07/19 14:08 BP 124/77 03/07/19 14:08 Pulse Ox 93 L 03/07/19 14:08 - COMMENTS/OBSERVATIONS Free Text/Narrative:: Ambulating, denies backache, numbness /tingling in LE, no problems urinating
[2019-03-08] MEDS: Ibuprofen 800 MG Tab PO SCH ×2 (07:54→09:10)
[2019-03-08 08:44] VITALS: BP 132/81
[2019-03-08] MEDS: Prenatal Multivitamin with Calcium/Folic Acid/Iron Tab PO SCH (09:10)
[2019-03-08 09:46] VITALS: PULSE 77
--- NOTE | 2019-03-08 10:19 | PCM.DCSUM1 ---
Discharge Summary - Hospital Course Free Text/Narrative:: Jordyn is a 23-year-old 2 now para 1011 white female who was admitted on 03/05/2019 for elective induction of labor. She underwent induction of labor which progressed to complete cervical dilation. She pushed for approximately 3 hours and decision was made to proceed to primary section for failure to progress during second stage. She underwent a primary section on and delivered a viable, ta, male weighing 8 lbs. 6 oz. ( 3810 g), Apgars of 9 and 9 born at 0757 hrs. on [birth year]06/2019. Patient has induced at 40-0/7 weeks gestational age. patient has done very well. She is made good ambulatory, bowel and bladder recovery. Vital signs and stable. Patient been afebrile. Follow-up CBC showed a hemoglobin which is 9.3. Patient is doing well with that hemoglobin. She is nursing without problems. Pain was then controlled with and Percocet. Patient is desiring discharge home. Diagnosis: Stroke: No - Discharge Data Discharge Date: 03/08/19 Discharge Disposition: Home, Self-Care 01 Condition: Good - Referral to Home Health Primary Care Physician: Chilo Boothe MD - Patient Summary/Data Operative Procedure(s) Performed: Primary lower uterine segment transverse section through Pfannenstiel skin incision under epidural anesthesia - Patient Instructions Diet: Regular Diet as Tolerated (Nursing diet and increase calories and calcium is recommended.) Activity: As Tolerated (No intercourse or tampons until bleeding resolves. No lifting greater than 15 pounds or driving a car 1 week.) Driving: Do Not Drive Showering/Bathing: May Shower Wound/Incision Care: Keep Operative Site/Wound Site Clean and Dry Notify Provider of: Fever, Increased Pain, Swelling and Redness, Nausea and/or Vomiting - Discharge Plan Home Medications: Home Meds Acetaminophen/oxyCODONE [Percocet 325-5 MG] 2 tab PO Q4H PRN tablet 03/08/19 [ Rx] Ibuprofen [Motrin] 800 mg PO Q8H tablet 03/08/19 [Rx] Vit with Ca/FA/Iron [ Plus Iron] 1 each PO DAILY tablet [Rx] Referrals: Chilo Boothe MD [Primary Care Provider] - (Return to clinicDr. Tl2 weeks.) - Discharge Summary/Plan Comment DC Time >30 min.: No Discharge Summary/Plan Comment: Discharge instructions: 1. Discharge home 2. Diet, activity and follow-up discussed with patient. Recommend nursing diet with increased calories and calcium. 3. Precautions given concern increased pain, bleeding, temperature, signs/ symptoms of DVT/PE. 4. Medications per home medication was printed, discussed with and given to the patient. 5. Return to clinic-Dr. Boothe[facility] in 2 weeks. Diagnosis: Term -delivered by section Condition: Good - Patient Data Vitals - Most Recent: Last Vital Signs Temp 36.7 C 03/08/19 08:41 Pulse 85 03/08/19 08:41 Resp 16 03/08/19 08:41 BP 132/81 03/08/19 08:41 Pulse Ox 97 03/08/19 08:41 Weight - Most Recent: 99.337 kg Med Orders - Current: Current Medications Diphenhydramine HCl (Benadryl) 25 mg IVPUSH Q6H PRN PRN Reason: Itching or Nausea Docusate Sodium (Colace) 100 mg PO Q12H PRN PRN Reason: Constipation Ephedrine Sulfate (Ephedrine Sulfate) 5 mg IVPUSH SEECOMMENT PRN PRN Reason: Other Ibuprofen (Motrin) 800 mg PO Q8H [facility] Last Admin: 03/08/19 09:10 Dose: 800 mg Naloxone HCl (Narcan) 0.1 mg IVPUSH SEECOMMENT PRN PRN Reason: Respiratory Depression Ondansetron HCl (Zofran) 4 mg IV Q4H PRN PRN Reason: Nausea/Vomiting Oxycodone/Acetaminophen (Percocet 325-5 Mg) 2 tab PO Q4H PRN PRN Reason: Pain (severe 7-10) Last Admin: 03/07/19 22:03 Dose: 2 tab Prenat Multivit/[place]/Iron/Folic Ac ( Plus Iron) 1 each PO DAILY [facility] Last Admin: 03/08/19 09:10 Dose: 1 each Discontinued Medications Acetaminophen (Tylenol) 650 mg PO Q6HR PRN PRN Reason: Headache/Pain Last Admin: 03/05/19 19:57 Dose: 650 mg Acetaminophen (Tylenol) 650 mg PO Q4H PRN PRN Reason: Fever Last Admin: 03/06/19 04:50 Dose: 650 mg Ampicillin Sodium (Ampicillin) Confirm Administered Dose 2 gm IV .STK-MED ONE Stop: 03/06/19 00:49 Last Admin: 03/06/19 10:46 Dose: Not Given Bupivacaine HCl (Marcaine 0.5%) Confirm Administered Dose 30 ml .ROUTE .[facility]-MED ONE Stop: 03/06/19 07:14 Last Admin: 03/06/19 07:47 Dose: 20 ml Bupivacaine HCl (Sensorcaine-Mpf 0.25%) 10 ml .ROUTE .ST-MED ONE Stop: 03/05/19 00:01 Cefazolin Sodium (Ancef) Confirm Administered Dose 2 gm .ROUTE .[facility]-MED ONE Stop: 03/06/19 07:14 Citric Acid/Sodium Citrate (Bicitra Solution) Confirm Administ[facility] Stop: 03/06/19 07:09 Last Admin: 03/06/19 10:46 Dose: Not Given Citric Acid/Sodium Citrate (Bicitra Solution) 30 ml PO ONETIME ONE Stop: 03/06/19 07:12 Last Admin: 03/06/19 07:26 Dose: 30 ml Diphenhydramine HCl (Benadryl) 25 mg IVPUSH Q6H PRN PRN Reason: pruritis Diphenhydramine HCl (Benadryl) 25 mg IVPUSH Q6H PRN PRN Reason: Pruritis Ephedrine Sulfate (Ephedrine Sulfate) 5 mg IVPUSH ASDIRECTED PRN PRN Reason: Hypotension Fentanyl (Sublimaze) 100 mcg EPIDUR Q3H PRN PRN Reason: Pain Last Admin: 03/06/19 07:25 Dose: 100 mcg Fentanyl/Bupivacaine HCl (Fentanyl/Bupivacaine/Ns 2 Mcg-0.125% 100 Ml) 100 ml EPIDUR CONTINUOUS PRN PRN Reason: Pain Last Admin: 03/06/19 03:42 Dose: 100 ml Lactated Ringer's (Ringers, Lactated) 1,000 mls @ 100 mls/hr IV ASDIRECTED [facility]YER Last Admin: 03/06/19 00:45 Dose: 100 mls/hr Oxytocin/Lactated Ringer's (Pitocin In Lr 10 Units/1,000 Ml) 10 unit in 1,000 mls @ 500 mls/hr IV .CONTINUOUS ROYER Oxytocin/Lactated Ringer's (Pitocin In Lr 10 Units/1,000 Ml) 10 unit in 1,000 mls @ 12 mls/hr IV TITRATE [facility]YER; Protocol Last Titration: 03/06/19 07:10 Dose: 0 munits/min, 0 mls/hr Ampicillin Sodium 2 gm/ Sodium (Chloride) 100 mls @ 200 mls/hr IV Q4H [facility] Last Admin: 03/06/19 10:45 Dose: Not Given Cefazolin Sodium/Dextrose 2 gm (/ Premix) 50 mls @ 100 mls/hr IV ONETIME ONE Stop: 03/06/19 07:40 Last Admin: 03/06/19 10:47 Dose: Not Given Azithromycin 500 mg/ Sodium (Chloride) 250 mls @ 250 mls/hr IV ONETIME ONE Stop: 03/06/19 08:10 Last Admin: 03/06/19 07:26 Dose: 250 mls/hr Lactated Ringer's (Ringers, Lactated) Confirm Administered Dose 2,000 mls @ as directed .ROUTE .STK-MED ONE Stop: 03/06/19 07:14 Lactated Ringer's (Ringers, Lactated) Confirm Administered Dose 1,000 mls @ as directed .ROUTE .STK-MED ONE Stop: 03/06/19 08:16 Dextrose/Lactated Ringer's (Dextrose 5%-Lactated Ringers) 1,000 mls @ 125 mls/ hr IV ASDIRECTED [facility]YER Stop: 03/06/19 18:26 Last Admin: 03/06/19 14:28 Dose: 125 mls/hr Ketorolac Tromethamine (Toradol) Confirm Administered Dose 30 mg .ROUTE .STK- MED ONE Stop: 03/06/19 07:14 Lidocaine/Epinephrine (Xylocaine-Mpf 2%-Epi 1:200,000) 20 ml .ROUTE .STK-MED ONE Stop: 03/05/19 00:01 Metoclopramide HCl (Reglan) Confirm Administered Dose 10 mg .ROUTE .STK-MED ONE Stop: 03/06/19 07:09 Last Admin: 03/06/19 10:47 Dose: Not Given Metoclopramide HCl (Reglan) 10 mg IVPUSH ONETIME ONE Stop: 03/06/19 07:12 Last Admin: 03/06/19 07:26 Dose: 10 mg Morphine Sulfate (Duramorph Pf) Confirm Administered Dose 10 mg .ROUTE .STK-MED ONE Stop: 03/06/19 07:14 Nalbuphine HCl (Nubain) 10 mg IVPUSH Q2H PRN PRN Reason: Pain Last Admin: 03/05/19 13:12 Dose: 10 mg Ondansetron HCl (Zofran) 4 mg IVPUSH Q4H PRN PRN Reason: Nausea/Vomiting Ondansetron HCl (Zofran) Confirm Administered Dose 4 mg .ROUTE .[employer]MED ONE Stop: 03/06/19 07:14 Ondansetron HCl (Zofran) 4 mg IVPUSH ONETIME PRN PRN Reason: Nausea/Vomiting Oxytocin (Pitocin) Confirm Administered Dose 20 unit .ROUTE .STK-MED ONE Stop: 03/06/19 07:14 Oxytocin (Pitocin) Confirm Administered Dose 20 unit .ROUTE .STK-MED ONE Stop: 03/06/19 08:17 Sodium Bicarbonate (Sodium Bicarbonate 8.4%) 50 meq .ROUTE .STK-MED ONE Stop: 03/05/19 00:01 Sodium Chloride (Saline Flush) 10 ml FLUSH ASDIRECTED PRN PRN Reason: Keep Vein Open
== END 2019-03-08 12:00 | disposition home or self-care (01) | DRG 540 ==
LOC: JD.OB 06:54 → UNDOADMOB 06:54 → JD.OB 03-06 06:54 → OBSVTOIN 03-06 07:11 → JD.OB 03-06 07:12
PROVIDERS: ADMIT Obstetrics & Gynecology; ATTEND Obstetrics & Gynecology
PROC: 10D00Z1 Extraction of Products of Conception, Low, Open Approach (ICD-10-PCS; principal; 2019-03-06)
PROC: 3E033VJ Introduction of Other Hormone into Peripheral Vein, Percutaneous Approach (ICD-10-PCS; 2019-03-06)
PROC: 10H07YZ Insertion of Other Device into Products of Conception, Via Natural or Artificial Opening (ICD-10-PCS; 2019-03-06)
DX: O48.0 Post-term pregnancy (principal); Z3A.40 40 weeks gestation of pregnancy; Z37.0 Single live birth; O62.1 Secondary uterine inertia; Z87.891 Personal history of nicotine dependence; O75.2 Pyrexia during labor, not elsewhere classified
CPT/HCPCS: 01967; 01968; 36415; 51702; 59025; 85025; 86592; 86850; 86900; 86901; 94762; A9270-GY; J0290; J0456; J0690; J1885; J2270; J2300; J2405; J2590; J2765; J3010; J3490; J7050; J7120; J7121

== ENCOUNTER 2019-11-15 17:29 | Day surgery (SDC) | payer BC ==
[2019-11-15] MEDS ORDERED: Sodium Chloride 0.9% 10 ML Syringe FLUSH PRN (18:28)
[2019-11-15] MEDS ORDERED: Ondansetron 4 MG/2 ML SDV IVPUSH ONE ×2 (18:29→19:57)
[2019-11-15] MEDS ORDERED: HYDROmorphone 0.5 MG/0.5 ML Syringe IVPUSH ONE ×3 (18:29→21:21)
[2019-11-15] MEDS ORDERED: Sodium Chloride 0.9% 1,000 ML IV STA (18:29)
[2019-11-15] MEDS ORDERED: Hyoscyamine 0.125 MG Tab.SL SL ONE (18:29)
--- NOTE | 2019-11-15 19:50 | EDM.PDOC ---
ED HPI GENERAL MEDICAL PROBLEM - General Chief Complaint: Abdominal Pain Stated Complaint: STOMACH AND BACK PAIN Time Seen by Provider: 11/15/19 17:43 Source of Information: Reports: Patient History Limitations: Reports: No Limitations - History of Present Illness INITIAL COMMENTS - FREE TEXT/NARRATIVE: Patient is a 24-year-old female presenting to the emergency department with complaints of acute right upper quadrant abdominal pain radiating through to her back, nausea, and vomiting. She states the symptoms began about 2 hours prior to coming to the ER, shortly after eating a rib eye steak for dinner. States prior to this she was feeling well. She has had pain similar to this in the past, however it usually resolves prior to being seen by a provider in the emergency department. She describes it as a burning pain and states is actually worse in her back than it is in her abdomen. She is had a number of episodes of vomiting. Denies any recent fever, chills, or diarrhea. abd Pain Score (Numeric/FACES): 10 - Related Data Allergies Allergy/AdvReac Type Severity Reaction Status Date / Time No Known Allergies Allergy Verified 11/15/19 17:46 Home Meds: Home Meds Vit with Ca/FA/Iron [ Plus Iron] 1 each PO DAILY tablet 03/08/19 [Rx] oxyCODONE 5 mg PO Q4H PRN #20 tab 11/16/19 [Rx] Past Medical History - Past Health History Medical/Surgical History: Denies Medical/Surgical History Cardiovascular History: Reports: None Respiratory History: Reports: Asthma Other Respiratory History: out grew it Gastrointestinal History: Reports: GERD Genitourinary History: Reports: Renal Calculus [employer] History: Reports: , Spontaneous Musculoskeletal History: Reports: Fracture Other Musculoskeletal History: 4 broken arms, broken nose x 2 Neurological History: Reports: Concussion, Migraines, Seizure Other Neuro History: 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 small child concussions in high school Psychiatric History: Reports: Anxiety, Depression Endocrine/Metabolic History: Reports: Hypothyroidism Hematologic History: Reports: Anemia - Infectious Disease History Infectious Disease History: Reports: MRSA Other Infectious Disease History: With T&A, reports she has been cleared - Past Surgical History HEENT Surgical History: Reports: Oral Surgery, Tonsillectomy - History Comment History Comment: vits Social & Family History - Family History Family Medical History: Noncontributory - Tobacco Use Smoking Status *Q: Never Smoker - Caffeine Use Caffeine Use: Reports: None - Recreational Drug Use Recreational Drug Use: No - Living Situation & Occupation Living situation: Reports: Single, Alone Occupation: Employed ED ROS GENERAL - Review of Systems Review Of Systems: See Below Constitutional: Reports: No Symptoms. Denies: Fever, Chills, Weakness HEENT: Reports: No Symptoms Respiratory: Reports: No Symptoms. Denies: Shortness of Breath, Cough Cardiovascular: Reports: No Symptoms Endocrine: Reports: No Symptoms GI/Abdominal: Reports: Abdominal Pain (Right upper quadrant radiating through to her back), Nausea, Vomiting : Reports: No Symptoms Musculoskeletal: Reports: No Symptoms Skin: Reports: No Symptoms Neurological: Reports: No Symptoms Psychiatric: Reports: No Symptoms Hematologic/Lymphatic: Reports: No Symptoms Immunologic: Reports: No Symptoms ED EXAM, GI/ABD - Physical Exam Exam: See Below General Appearance: Alert, Moderate Distress Respiratory/Chest: No Respiratory Distress, Lungs Clear, Normal Breath Sounds, No Accessory Muscle Use, Chest Non-Tender Cardiovascular: Normal Peripheral Pulses, Regular Rate, Rhythm, No Edema, No Gallop, No JVD, No Murmur, No Rub GI/Abdominal Exam: Normal Bowel Sounds, Soft, No Organomegaly, No Distention, No Abnormal Bruit, No Mass, Pelvis Stable, Tender (Significant right upper quadrant tenderness. Positive Steinberg sign.) Neurological: Alert, Oriented, CN II-XII Intact, Normal Cognition, Normal Gait, Normal Reflexes, No Motor/Sensory Deficits Psychiatric: Normal Affect, Normal Mood Skin Exam: Warm, Dry, Intact, Normal Color, No Rash Course - Vital Signs Last Recorded V/S: Last Vital Signs Temp 98.3 F 11/16/19 12:20 Pulse 67 11/16/19 12:20 Resp 15 11/16/19 12:20 BP 118/66 11/16/19 12:20 Pulse Ox 96 11/16/19 12:20 - Orders/Labs/Meds Orders: Active Orders 24 hr Category Date Time Status Admission Status [Patient Status] [ADT] Routine ADT 11/16/19 06:17 Active Communication Order [RC] ASDIRECTED Care 11/16/19 08:32 Active Cooling Warming Measures [RC] ASDIRECTED Care 11/16/19 08:32 Active Oxygen Therapy [RC] ASDIRECTED Care 11/16/19 08:32 Active Pulse Oximetry [RC] ASDIRECTED Care 11/16/19 08:32 Active Ready for Discharge [RC] PER UNIT ROUTINE Care 11/16/19 10:23 Active Verify Patient Consent Obtain [RC] ASDIRECTED Care 11/16/19 08:31 Active Vital Signs [RC] Q15M Care 11/16/19 08:32 Active NPO [Nothing Per Oral Diet] [DIET] Diet 11/16/19 Breakfast Active Abdomen Pelvis w Cont [CT] Stat Exams 11/15/19 19:01 Taken HYDROmorphone [Dilaudid] Med 11/16/19 08:31 Active 0.5 mg IVPUSH Q10M PRN HYDROmorphone [Dilaudid] Med 11/15/19 23:21 Active 0.5 mg IVPUSH Q1H PRN Lactated Ringers [Ringers, Lactated] 1,000 ml Med 11/16/19 08:45 Active IV ASDIRECTED Ondansetron [Zofran] Med 11/16/19 08:31 Active 4 mg IVPUSH ONETIME PRN Promethazine [Phenergan] 25 mg Med 11/15/19 23:22 Active Sodium Chloride 0.9% [Normal Saline] 50 ml IV ONETIME Remove Patch Med 11/17/19 08:30 Once 1 ea TRDERM ONETIME ONE fentaNYL [Sublimaze] Med 11/16/19 08:31 Active 50 mcg IVPUSH Q5M PRN oxyCODONE Med 11/16/19 11:20 Active 5 mg PO Q4H PRN Medication Administration Instruction [OM.PC] Routine Oth 11/16/19 08:31 Ordered Schedule Procedure [COMM] Routine Oth 11/16/19 08:30 Ordered Medication Orders Fentanyl (Sublimaze) 50 mcg IVPUSH Q5M PRN PRN Reason: Pain Hydromorphone HCl (Dilaudid) 0.5 mg IVPUSH Q1H PRN PRN Reason: Pain Hydromorphone HCl (Dilaudid) 0.5 mg IVPUSH Q10M PRN PRN Reason: Pain (severe 7-10) Promethazine HCl 25 mg/ Sodium (Chloride) 51 mls @ 100 mls/hr IV ONETIME PRN PRN Reason: Nausea Lactated Ringer's (Ringers, Lactated) 1,000 mls @ 125 mls/hr IV ASDIRECTED ROYER Last Admin: 11/16/19 11:00 Dose: 125 mls/hr Documented by: LUCILLE Miscellaneous Information (Remove Patch) 1 ea TRDERM ONETIME ONE Stop: 11/17/19 08:31 Ondansetron HCl (Zofran) 4 mg IVPUSH ONETIME PRN PRN Reason: Nausea/Vomiting Oxycodone HCl (Oxycodone) 5 mg PO Q4H PRN PRN Reason: Pain Last Admin: 11/16/19 11:47 Dose: 5 mg Documented by: LUCILLE Sodium Chloride (Saline Flush) 10 ml FLUSH ASDIRECTED PRN PRN Reason: Keep Vein Open Last Admin: 11/15/19 18:43 Dose: 10 ml Documented by: PHUONG Labs: Laboratory Tests 11/15/19 11/15/19 11/15/19 Range/Units 18:44 18:44 21:11 WBC 14.54 H (3.98-10.04) K/mm3 RBC 5.30 H (3.98-5.22) M/mm3 Hgb 14.3 D (11.2-15.7) gm/dl Hct 43.2 (34.1-44.9) % MCV 81.5 D (79.4-94.8) fl MCH 27.0 (25.6-32.2) pg MCHC 33.1 (32.2-35.5) g/dl RDW Std Deviation 40.2 (36.4-46.3) fL Plt Count 397 H D (182-369) K/mm3 MPV 9.1 L (9.4-12.3) fl Neut % (Auto) 73.8 H (34.0-71.1) % Lymph % (Auto) 18.6 L (19.3-51.7) % Barry % (Auto) 6.5 (4.7-12.5) % Eos % (Auto) 0.6 L (0.7-5.8) Baso % (Auto) 0.2 (0.1-1.2) % Neut # (Auto) 10.72 H (1.56-6.13) K/mm3 Lymph # (Auto) 2.71 (1.18-3.74) K/mm3 Barry # (Auto) 0.94 H (0.24-0.36) K/mm3 Eos # (Auto) 0.09 (0.04-0.36) K/mm3 Baso # (Auto) 0.03 (0.01-0.08) K/mm3 Manual Slide Review Normal smear Sodium 142 (136-145) mEq/L Potassium 3.8 (3.5-5.1) mEq/L Chloride 102 (98-107) mEq/L Carbon Dioxide 29 (21-32) mEq/L Anion Gap 14.8 (5-15) BUN 14 (7-18) mg/dL Creatinine 0.8 (0.55-1.02) mg/dL Est Cr Clr Drug Dosing 97.57 mL/min Estimated GFR (MDRD) > 60 (>60) mL/min BUN/Creatinine Ratio 17.5 (14-18) Glucose 110 H (74-106) mg/dL Calcium 9.5 (8.5-10.1) mg/dL Total Bilirubin 0.7 (0.2-1.0) mg/dL AST 28 (15-37) U/L ALT 37 (14-59) U/L Alkaline Phosphatase 94 (46-116) U/L C-Reactive Protein 1.1 H* (<1.0) mg/dL Total Protein 8.4 H (6.4-8.2) g/dl Albumin 4.3 (3.4-5.0) g/dl Globulin 4.1 gm/dL Albumin/Globulin Ratio 1.1 (1-2) Lipase 107 (73-393) U/L Urine Color (Yellow) Urine Appearance (Clear) Urine pH (5.0-8.0) Ur Specific [place] (1.005-1.030) Urine Protein (Negative) Urine Glucose (UA) (Negative) Urine Ketones (Negative) Urine Occult Blood (Negative) Urine Nitrite (Negative) Urine Bilirubin (Negative) Urine Urobilinogen (0.2-1.0) Ur Leukocyte Esterase (Negative) Urine RBC (0-5) /hpf Urine WBC (0-5) /hpf Ur Squamous Epith Cells (0-5) /hpf Urine Bacteria (FEW) /hpf Urine Mucus (FEW) /hpf Urine HCG, Qual (NEGATIVE) SARS-CoV-2 RNA (LAKISHA) Negative (NEGATIVE) 11/15/19 11/15/19 Range/Units 21:40 21:40 WBC (3.98-10.04) K/mm3 RBC (3.98-5.22) M/mm3 Hgb (11.2-15.7) gm/dl Hct (34.1-44.9) % MCV (79.4-94.8) fl MCH (25.6-32.2) pg MCHC (32.2-35.5) g/dl RDW Std Deviation (36.4-46.3) fL Plt Count (182-369) K/mm3 MPV (9.4-12.3) fl Neut % (Auto) (34.0-71.1) % Lymph % (Auto) (19.3-51.7) % Barry % (Auto) (4.7-12.5) % Eos % (Auto) (0.7-5.8) Baso % (Auto) (0.1-1.2) % Neut # (Auto) (1.56-6.13) K/mm3 Lymph # (Auto) (1.18-3.74) K/mm3 Barry # (Auto) (0.24-0.36) K/mm3 Eos # (Auto) (0.04-0.36) K/mm3 Baso # (Auto) (0.01-0.08) K/mm3 Manual Slide Review Sodium (136-145) mEq/L Potassium (3.5-5.1) mEq/L Chloride (98-107) mEq/L Carbon Dioxide (21-32) mEq/L Anion Gap (5-15) BUN (7-18) mg/dL Creatinine (0.55-1.02) mg/dL Est Cr Clr Drug Dosing mL/min Estimated GFR (MDRD) (>60) mL/min BUN/Creatinine Ratio (14-18) Glucose (74-106) mg/dL Calcium (8.5-10.1) mg/dL Total Bilirubin (0.2-1.0) mg/dL AST (15-37) U/L ALT (14-59) U/L Alkaline Phosphatase (46-116) U/L C-Reactive Protein (<1.0) mg/dL Total Protein (6.4-8.2) g/dl Albumin (3.4-5.0) g/dl Globulin gm/dL Albumin/Globulin Ratio (1-2) Lipase (73-393) U/L Urine Color Yellow (Yellow) Urine Appearance Clear (Clear) Urine pH 7.0 (5.0-8.0) Ur Specific [place] 1.015 (1.005-1.030) Urine Protein Negative (Negative) Urine Glucose (UA) Negative (Negative) Urine Ketones Negative (Negative) Urine Occult Blood Trace-intact H (Negative) Urine Nitrite Negative (Negative) Urine Bilirubin Negative (Negative) Urine Urobilinogen 0.2 (0.2-1.0) Ur Leukocyte Esterase Negative (Negative) Urine RBC 0-5 (0-5) /hpf Urine WBC 0-5 (0-5) /hpf Ur Squamous Epith Cells 5-10 H (0-5) /hpf Urine Bacteria Few (FEW) /hpf Urine Mucus Few (FEW) /hpf Urine HCG, Qual Negative (NEGATIVE) SARS-CoV-2 RNA (LAKISHA) (NEGATIVE) Meds: Medications Generic Name Dose Route Start Last Admin Trade Name Maria Luisa PRN Reason Stop Dose Admin Fentanyl 50 mcg 11/16/19 08:31 Sublimaze IVPUSH Q5M PRN Pain Hydromorphone HCl 0.5 mg 11/15/19 23:21 Dilaudid IVPUSH Q1H PRN Pain Hydromorphone HCl 0.5 mg 11/16/19 08:31 Dilaudid IVPUSH Q10M PRN Pain (severe 7-10) Promethazine HCl 25 mg/ Sodium 51 mls @ 100 mls/hr 11/15/19 23:22 Chloride IV ONETIME PRN Nausea Lactated Ringer's 1,000 mls @ 125 mls/hr 11/16/19 08:45 11/16/19 11:00 Ringers, Lactated IV 125 mls/hr ASDIRECTED ROYER Administration Miscellaneous Information 1 ea 11/17/19 08:30 Remove Patch TRDERM 11/17/19 08:31 ONETIME ONE Ondansetron HCl 4 mg 11/16/19 08:31 Zofran IVPUSH ONETIME PRN Nausea/Vomiting Oxycodone HCl 5 mg 11/16/19 11:20 11/16/19 11:47 Oxycodone PO 5 mg Q4H PRN Administration Pain Sodium Chloride 10 ml 11/15/19 18:28 11/15/19 18:43 Saline Flush FLUSH 10 ml ASDIRECTED PRN Administration Keep Vein Open Discontinued Medications Generic Name Dose Route Start Last Admin Trade Name Maria Luisa PRN Reason Stop Dose Admin Bupivacaine HCl/Epinephrine Bitart Confirm 11/16/19 08:35 11/16/19 09:29 Marcaine 0.5%/Epinephrine 1:200,000 Administered 11/16/19 08:36 30 ml Dose Administration 50 ml .ROUTE .STK-MED ONE Cefazolin Sodium Confirm 11/16/19 09:26 Ancef Administered 11/16/19 09:27 Dose 1 gm .ROUTE .STK-MED ONE Dexamethasone Confirm 11/16/19 08:12 Dexamethasone Administered 11/16/19 08:13 Dose 20 mg .ROUTE .STK-MED ONE Dexmedetomidine HCl Confirm 11/16/19 08:12 Precedex Administered 11/16/19 08:13 Dose 200 mcg .ROUTE .STK-MED ONE Diatrizoate Meglum/Diatrizoate Sod 120 ml 11/15/19 20:35 11/15/19 20:59 Gastrografin 37% PO 11/15/19 20:36 120 ml ONETIME ONE Administration Ephedrine Sulfate Confirm 11/16/19 10:01 Ephedrine Sulfate Administered 11/16/19 10:02 Dose 50 mg .ROUTE .STK-MED ONE Fentanyl Confirm 11/16/19 08:13 Sublimaze Administered 11/16/19 08:14 Dose 100 mcg .ROUTE .STK-MED ONE Hydromorphone HCl 0.5 mg 11/15/19 18:29 11/15/19 18:42 Dilaudid IVPUSH 11/15/19 18:30 0.5 mg ONETIME ONE Administration Hydromorphone HCl 0.5 mg 11/15/19 19:47 11/15/19 19:55 Dilaudid IVPUSH 11/15/19 19:48 0.5 mg ONETIME ONE Administration Hydromorphone HCl 0.5 mg 11/15/19 21:21 11/15/19 21:40 Dilaudid IVPUSH 11/15/19 21:22 0.5 mg ONETIME ONE Administration Hyoscyamine 0.25 mg 11/15/19 18:29 11/15/19 18:43 Hyomax-Sl SL 11/15/19 18:30 0.25 mg ONETIME ONE Administration Sodium Chloride 1,000 mls @ 999 mls/hr 11/15/19 18:29 11/15/19 18:43 Normal Saline IV 11/15/19 19:29 999 mls/hr NOW STA Administration Piperacillin Sod/Tazobactam 100 mls @ 200 mls/hr 11/15/19 20:52 11/15/19 21:12 Sod 4.5 gm/ Sodium Chloride IV 11/15/19 21:21 200 mls/hr ONETIME ONE Administration Lidocaine HCl Confirm 11/16/19 08:12 Xylocaine-Mpf 1% Administered 11/16/19 08:13 Dose 4 mls @ as directed .ROUTE .STK-MED ONE Iopamidol 100 ml 11/15/19 20:35 11/15/19 20:59 Isovue-300 (61%) IVPUSH 11/15/19 20:36 100 ml ONETIME ONE Administration Ketorolac Tromethamine Confirm 11/16/19 08:12 Toradol Administered 11/16/19 08:13 Dose 30 mg .ROUTE .STK-MED ONE Miscellaneous Medication Confirm 11/16/19 09:34 Phenylephrine 1 Mg/10 Ml-Ns Administered 11/16/19 09:35 Dose 1 mg .ROUTE .STK-MED ONE Morphine Sulfate Confirm 11/16/19 09:37 Morphine Administered 11/16/19 09:38 Dose 10 mg .ROUTE .STK-MED ONE Ondansetron HCl 4 mg 11/15/19 18:29 11/15/19 18:42 Zofran IVPUSH 11/15/19 18:30 4 mg ONETIME ONE Administration Ondansetron HCl 4 mg 11/15/19 19:57 11/15/19 20:00 Zofran IVPUSH 11/15/19 19:58 4 mg ONETIME ONE Administration Ondansetron HCl Confirm 11/16/19 08:12 Zofran Administered 11/16/19 08:13 Dose 4 mg .ROUTE .STK-MED ONE Propofol Confirm 11/16/19 08:12 Diprivan 20 Ml Administered 11/16/19 08:13 Dose 200 mg .ROUTE .STK-MED ONE Propofol Confirm 11/16/19 09:21 Diprivan 20 Ml Administered 11/16/19 09:22 Dose 200 mg .ROUTE .STK-MED ONE Rocuronium [place] Confirm 11/16/19 08:12 Zemuron Administered 11/16/19 08:13 Dose 50 mg .ROUTE .STK-MED ONE Scopolamine 0 mg 11/16/19 08:31 Transderm-Scop TRDERM 11/16/19 08:32 ONETIME ONE Sodium Chloride 10 ml 11/15/19 20:35 11/15/19 20:59 Saline Flush FLUSH 11/15/19 20:36 10 ml ONETIME ONE Administration - Re-Assessments/Exams Free Text/Narrative Re-Assessment/Exam: Patient is a 24-year-old female presenting to the emergency department with complaints of acute right upper quadrant abdominal pain radiating through to her back. Describes it as a burning intense pain. Symptoms began about 30 minutes after eating a rib eye steak for dinner. She denies any known gallbladder dysfunction, however states she has had pain in this area off and on in the past but usually resolves without intervention. She is also had nausea and vomiting accompanying this pain. Denies any fever or chills. On exam, she does have significant right upper quadrant tenderness with a positive Steinberg sign. Since it is only been 2 hours since she ate, we will do a CT scan of her abdomen pelvis with contrast as opposed to an ultrasound the right upper quadrant. I will order a CBC, CMP, lipase, urinalysis, qualitative hCG. I will give her 1 L bolus of normal saline, Zofran 4 mg IV for nausea, Dilaudid 0.5 mg IV for pain, and Levsin 0.5 mg sublingual. 11/15/192114 Hematology was significant for WBC elevated at 15.54, platelets 397, CRP 1.1. Liver enzymes, bili, alkaline phosphatase, lipase were all within the normal ranges.CT scan of the abdomen pelvis showed cholelithiasis with possible gallbladder wall thickening. Question of choledocholithiasis. Consider right upper quadrant ultrasound or emesis ERCP to further characterize. Called and spoke with the general surgeon, Dr. Vitale. Since she has no evidence of biliary obstruction on her labs, he does not recommend that we completed ultrasound or MRCP. He states that her gallbladder will need to come out, however he does not feel that it is imperative that we do it this evening. He recommends that we give her a dose of Zosyn and then admit her for observation. Unfortunately do not have any observation beds available. We will keep the patient in the emergency department till tomorrow morning and then Dr. Vitale will take her to surgery in the morning. She is to be n.p.o. Dr. Vitale did stop and visit with the patient and she is in agreement with this plan. 11/15/19 23:52 Patient is resting comfortably at this time. I have put in orders for Dilaudid 0.5 mg every hour as needed pain, as well as promethazine 25 mg IV as needed x1 dose as needed for nausea. Case has been discussed with Dr. Jennings at end of shift. He will assume care of the patient until she goes to surgery in the AM. Departure - Departure Time of Disposition: 09:21 Disposition: DC/Tfer to [facility] Condition: Good Clinical Impression: Cholecystitis - Discharge Information Sepsis Event Note (ED) - Evaluation Sepsis Screening Result: No Definite Risk - Focused Exam Vital Signs: Vital Signs Temp Pulse Resp BP Pulse Ox Pulse Ox 11/16/19 12:20 98.3 F 67 15 118/66 96 11/16/19 11:50 97.1 F 66 12 122/75 95 11/16/19 11:20 98.0 F 62 12 120/65 94 L 11/16/19 11:10 98 11/16/19 11:05 97.8 F 68 12 123/75 98 11/16/19 11:00 99 11/16/19 10:50 68 9 L 104/66 99 11/16/19 10:35 98.2 F 94 17 126/74 98 11/16/19 10:19 97.9 F 81 14 123/62 97 97 - My Orders Last 24 Hours: My Active Orders 11/15/19 19:01 Abdomen Pelvis w Cont [CT] Stat 11/15/19 23:21 HYDROmorphone [Dilaudid] 0.5 mg IVPUSH Q1H PRN 11/15/19 23:22 Promethazine [Phenergan] 25 mg Sodium Chloride 0.9% [Normal Saline] 50 ml IV ONETIME 11/16/19 06:17 Admission Status [Patient Status] [ADT] Routine 11/16/19 Breakfast NPO [Nothing Per Oral Diet] [DIET] - Assessment/Plan Last 24 Hours: My Active Orders 11/15/19 19:01 Abdomen Pelvis w Cont [CT] Stat 11/15/19 23:21 HYDROmorphone [Dilaudid] 0.5 mg IVPUSH Q1H PRN 11/15/19 23:22 Promethazine [Phenergan] 25 mg Sodium Chloride 0.9% [Normal Saline] 50 ml IV ONETIME 11/16/19 06:17 Admission Status [Patient Status] [ADT] Routine 11/16/19 Breakfast NPO [Nothing Per Oral Diet] [DIET]
[2019-11-15] MEDS ORDERED: Sodium Chloride 0.9% 10 ML Syringe FLUSH ONE (20:35)
[2019-11-15] MEDS ORDERED: Iopamidol 612 MG/ML 100 ML Bottle IVPUSH ONE (20:35)
[2019-11-15] MEDS ORDERED: Diatrizoate Meglumine/Diatrizoate Sodium 37% 120 ML Bottle PO ONE (20:35)
[2019-11-15] MEDS ORDERED: Piperacillin/Tazobactam 4.5 GM in Sodium Chloride 0.9% 100 ML IV ONE (20:52)
--- NOTE | 2019-11-15 23:12 | PCM.HP.2 ---
H&P History of Present Illness - General Date of Service: 11/15/19 Admit Problem/Dx: acute cholecystitis History Limitations: Reports: No Limitations - History of Present Illness Initial Comments - Free Text/Narative: 24 yo woman presents with new onset severe right upper quadrant pain. Has had some RUQ discomfort/mild pain in past but not like this. Happened this evening after eating a fatty meal. ER workup is significant for CT scan showing evidence of cholelithiasis with some inflammatory changes of the gallbladder and WBC 14,000, with normal LFTs. 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: , 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 Musculoskeletal History: Reports: Fracture Other Musculoskeletal History: 4 broken arms, broken nose x 2 Neurological History: Reports: Concussion, Migraines, Seizure Other Neuro History: 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 small child concussions in high school Psychiatric History: Reports: Anxiety, Depression Endocrine/Metabolic History: Reports: Hypothyroidism Hematologic History: Reports: Anemia - Infectious Disease History Infectious Disease History: Reports: MRSA Other Infectious Disease History: With T&A, reports she has been cleared - Past Surgical History HEENT Surgical History: Reports: Oral Surgery, Tonsillectomy - History Comment History Comment: vits Social & Family History - Family History Family Medical History: Noncontributory - Tobacco Use Smoking Status *Q: Never Smoker - Caffeine Use Caffeine Use: Reports: None - Recreational Drug Use Recreational Drug Use: No - Living Situation & Occupation Living situation: Reports: Single, Alone Occupation: Employed H&P Review of Systems - Review of Systems: Review Of Systems: See Below General: Reports: No Symptoms HEENT: Reports: No Symptoms Pulmonary: Reports: No Symptoms Cardiovascular: Reports: No Symptoms Gastrointestinal: Reports: Abdominal Pain, Nausea Genitourinary: Reports: No Symptoms Musculoskeletal: Reports: No Symptoms Skin: Reports: No Symptoms Psychiatric: Reports: No Symptoms Neurological: Reports: No Symptoms Hematologic/Lymphatic: Reports: No Symptoms Immunologic: Reports: No Symptoms Exam - Exam Exam: See Below - Vital Signs Vital Signs: Last Vital Signs Temp 36.9 C 11/15/19 17:42 Pulse 80 11/15/19 17:42 Resp 20 11/15/19 17:42 BP 124/80 11/15/19 17:42 Pulse Ox 98 11/15/19 17:42 Weight: 86.183 kg - Exam General: Alert, Oriented, Cooperative HEENT: Conjunctiva Clear Neck: Supple Lungs: Clear to Auscultation, Normal Respiratory Effort Cardiovascular: Regular Rate GI/Abdominal Exam: Soft, Tender Extremities: Normal Inspection Skin: Warm, Dry Neuro Extensive - Mental Status: Alert, Oriented x3 Psychiatric: Normal Affect - Patient Data Lab Results Last 24 hrs: Laboratory Results - last 24 hr 11/15/19 11/15/19 11/15/19 Range/Units 18:44 18:44 21:11 WBC 14.54 H (3.98-10.04) K/mm3 RBC 5.30 H (3.98-5.22) M/mm3 Hgb 14.3 D (11.2-15.7) gm/dl Hct 43.2 (34.1-44.9) % MCV 81.5 D (79.4-94.8) fl MCH 27.0 (25.6-32.2) pg MCHC 33.1 (32.2-35.5) g/dl RDW Std Deviation 40.2 (36.4-46.3) fL Plt Count 397 H D (182-369) K/mm3 MPV 9.1 L (9.4-12.3) fl Neut % (Auto) 73.8 H (34.0-71.1) % Lymph % (Auto) 18.6 L (19.3-51.7) % [place] % (Auto) 6.5 (4.7-12.5) % Eos % (Auto) 0.6 L (0.7-5.8) Baso % (Auto) 0.2 (0.1-1.2) % Neut # (Auto) 10.72 H (1.56-6.13) K/mm3 Lymph # (Auto) 2.71 (1.18-3.74) K/mm3 [place] # (Auto) 0.94 H (0.24-0.36) K/mm3 Eos # (Auto) 0.09 (0.04-0.36) K/mm3 Baso # (Auto) 0.03 (0.01-0.08) K/mm3 Manual Slide Review Normal smear Sodium 142 (136-145) mEq/L Potassium 3.8 (3.5-5.1) mEq/L Chloride 102 (98-107) mEq/L Carbon Dioxide 29 (21-32) mEq/L Anion Gap 14.8 (5-15) BUN 14 (7-18) mg/dL Creatinine 0.8 (0.55-1.02) mg/dL Est Cr Clr Drug Dosing 97.57 mL/min Estimated GFR (MDRD) > 60 (>60) mL/min BUN/Creatinine Ratio 17.5 (14-18) Glucose 110 H (74-106) mg/dL Calcium 9.5 (8.5-10.1) mg/dL Total Bilirubin 0.7 (0.2-1.0) mg/dL AST 28 (15-37) U/L ALT 37 (14-59) U/L Alkaline Phosphatase 94 (46-116) U/L C-Reactive Protein 1.1 H* (<1.0) mg/dL Total Protein 8.4 H (6.4-8.2) g/dl Albumin 4.3 (3.4-5.0) g/dl Globulin 4.1 gm/dL Albumin/Globulin Ratio 1.1 (1-2) Lipase 107 (73-393) U/L Urine Color (Yellow) Urine Appearance (Clear) Urine pH (5.0-8.0) Ur Specific [place] (1.005-1.030) Urine Protein (Negative) Urine Glucose (UA) (Negative) Urine Ketones (Negative) Urine Occult Blood (Negative) Urine Nitrite (Negative) Urine Bilirubin (Negative) Urine Urobilinogen (0.2-1.0) Ur Leukocyte Esterase (Negative) Urine RBC (0-5) /hpf Urine WBC (0-5) /hpf Ur Squamous Epith Cells (0-5) /hpf Urine Bacteria (FEW) /hpf Urine Mucus (FEW) /hpf Urine HCG, Qual (NEGATIVE) SARS-CoV-2 RNA (LAKISHA) Negative (NEGATIVE) 11/15/19 11/15/19 Range/Units 21:40 21:40 WBC (3.98-10.04) K/mm3 RBC (3.98-5.22) M/mm3 Hgb (11.2-15.7) gm/dl Hct (34.1-44.9) % MCV (79.4-94.8) fl MCH (25.6-32.2) pg MCHC (32.2-35.5) g/dl RDW Std Deviation (36.4-46.3) fL Plt Count (182-369) K/mm3 MPV (9.4-12.3) fl Neut % (Auto) (34.0-71.1) % Lymph % (Auto) (19.3-51.7) % [place] % (Auto) (4.7-12.5) % Eos % (Auto) (0.7-5.8) Baso % (Auto) (0.1-1.2) % Neut # (Auto) (1.56-6.13) K/mm3 Lymph # (Auto) (1.18-3.74) K/mm3 [place] # (Auto) (0.24-0.36) K/mm3 Eos # (Auto) (0.04-0.36) K/mm3 Baso # (Auto) (0.01-0.08) K/mm3 Manual Slide Review Sodium (136-145) mEq/L Potassium (3.5-5.1) mEq/L Chloride (98-107) mEq/L Carbon Dioxide (21-32) mEq/L Anion Gap (5-15) BUN (7-18) mg/dL Creatinine (0.55-1.02) mg/dL Est Cr Clr Drug Dosing mL/min Estimated GFR (MDRD) (>60) mL/min BUN/Creatinine Ratio (14-18) Glucose (74-106) mg/dL Calcium (8.5-10.1) mg/dL Total Bilirubin (0.2-1.0) mg/dL AST (15-37) U/L ALT (14-59) U/L Alkaline Phosphatase (46-116) U/L C-Reactive Protein (<1.0) mg/dL Total Protein (6.4-8.2) g/dl Albumin (3.4-5.0) g/dl Globulin gm/dL Albumin/Globulin Ratio (1-2) Lipase (73-393) U/L Urine Color Yellow (Yellow) Urine Appearance Clear (Clear) Urine pH 7.0 (5.0-8.0) Ur Specific [place] 1.015 (1.005-1.030) Urine Protein Negative (Negative) Urine Glucose (UA) Negative (Negative) Urine Ketones Negative (Negative) Urine Occult Blood Trace-intact H (Negative) Urine Nitrite Negative (Negative) Urine Bilirubin Negative (Negative) Urine Urobilinogen 0.2 (0.2-1.0) Ur Leukocyte Esterase Negative (Negative) Urine RBC 0-5 (0-5) /hpf Urine WBC 0-5 (0-5) /hpf Ur Squamous Epith Cells 5-10 H (0-5) /hpf Urine Bacteria Few (FEW) /hpf Urine Mucus Few (FEW) /hpf Urine HCG, Qual Negative (NEGATIVE) SARS-CoV-2 RNA (LAKISHA) (NEGATIVE) Result Diagrams: 11/15/19 18:44 11/15/19 18:44 Sepsis Event Note - Evaluation Sepsis Screening Result: No Definite Risk - Focused Exam Vital Signs: Vital Signs Temp Pulse Resp BP Pulse Ox 11/15/19 17:42 36.9 C 80 20 124/80 98 Problem List Initiated/Reviewed/Updated: Yes Orders Last 24hrs: Active Orders 24 hr Category Date Time Status Peripheral IV Care [RC] . DIRECTED Care 11/15/19 18:28 Active Abdomen Pelvis w Cont [CT] Stat Exams 11/15/19 19:01 Taken Sodium Chloride 0.9% [Saline Flush] Med 11/15/19 18:28 Active 10 ml FLUSH ASDIRECTED PRN Peripheral IV Insertion Adult [OM.PC] Stat Oth 11/15/19 18:28 Ordered Schedule Procedure [COMM] Routine Oth 11/16/19 08:30 Ordered Medication Orders Sodium Chloride (Saline Flush) 10 ml FLUSH ASDIRECTED PRN PRN Reason: Keep Vein Open Last Admin: 11/15/19 18:43 Dose: 10 ml Documented by: PHUONG Assessment/Plan Comment:: acute cholecystitis- plan for laparoscopic cholecystectomy in AM, anticipate discharge to home from the recovery room. - Mortality Measure Prognosis:: Good
[2019-11-15] MEDS ORDERED: HYDROmorphone 0.5 MG/0.5 ML Syringe IVPUSH PRN (23:21)
[2019-11-15] MEDS ORDERED: Promethazine 25 MG in Sodium Chloride 0.9% 50 ML IV PRN (23:22)
[2019-11-16] MEDS ORDERED: Dexmedetomidine 200 MCG/2 ML SDV ONE (08:12)
[2019-11-16] MEDS ORDERED: Lidocaine 1% 4 ML ONE (08:12)
[2019-11-16] MEDS ORDERED: Dexamethasone 4 MG/ML 5 ML MDV ONE (08:12)
[2019-11-16] MEDS ORDERED: Rocuronium 50 MG/5 ML Vial ONE (08:12)
[2019-11-16] MEDS ORDERED: Ketorolac 30 MG/ML SDV ONE (08:12)
[2019-11-16] MEDS ORDERED: Ondansetron 4 MG/2 ML SDV ONE (08:12)
[2019-11-16] MEDS ORDERED: Propofol 200 MG/20 ML SDV ONE ×2 (08:12→09:21)
[2019-11-16] MEDS ORDERED: fentaNYL 100 MCG/2 ML SDV ONE (08:13)
[2019-11-16] MEDS ORDERED: HYDROmorphone 0.5 MG/0.5 ML Syringe IVPUSH PRN (08:31)
[2019-11-16] MEDS ORDERED: Ondansetron 4 MG/2 ML SDV IVPUSH PRN (08:31)
[2019-11-16] MEDS ORDERED: Scopolamine 1.5 MG Transdermal Patch TRDERM ONE (08:31)
[2019-11-16] MEDS ORDERED: fentaNYL 100 MCG/2 ML SDV IVPUSH PRN (08:31)
--- NOTE | 2019-11-16 08:31 | PCM.PREANE ---
Preanesthetic Assessment - Procedure Proposed Procedure: Laparoscopic Cholecystectomy - Anesthesia/Transfusion/Family Hx Anesthesia History: Prior Anesthesia Without Reaction Family History of Anesthesia Reaction: No Transfusion History: No Prior Transfusion(s) Additional History: Patient reports that "she had trouble breathing" after anesthesia for her c- section and required oxygen. Patient has never been tested for sleep apnea and she denies any asthma or other respiratory disease. - Review of Systems General: No Symptoms Pulmonary: No Symptoms Cardiovascular: No Symptoms Gastrointestinal: Abdominal Pain Neurological: No Symptoms Other: Reports: None - Physical Assessment NPO Status Date: 11/16/19 NPO Status Time: 00:00 Vital Signs: Last Vital Signs Temp 36.9 C 11/15/19 17:42 Pulse 80 11/15/19 17:42 Resp 20 11/15/19 17:42 BP 124/80 11/15/19 17:42 Pulse Ox 98 11/15/19 17:42 Height: 5 ft 5 in Weight: 86.183 kg ASA Class: 2 Mental Status: Alert & Oriented x3 Airway Class: Mallampati = 2 Dentition: Reports: Normal Dentition Thyro-Mental Finger Breadths: 3 Mouth Opening Finger Breadths: 3 ROM/Head Extension: Full Lungs: Clear to Auscultation, Normal Respiratory Effort Cardiovascular: Regular Rate, Regular Rhythm - Lab Values: Laboratory Last Values WBC 14.54 K/mm3 (3.98-10.04) H 11/15/19 18:44 RBC 5.30 M/mm3 (3.98-5.22) H 11/15/19 18:44 Hgb 14.3 gm/dl (11.2-15.7) D 11/15/19 18:44 Hct 43.2 % (34.1-44.9) 11/15/19 18:44 MCV 81.5 fl (79.4-94.8) D 11/15/19 18:44 MCH 27.0 pg (25.6-32.2) 11/15/19 18:44 MCHC 33.1 g/dl (32.2-35.5) 11/15/19 18:44 RDW Std Deviation 40.2 fL (36.4-46.3) 11/15/19 18:44 Plt Count 397 K/mm3 (182-369) H D 11/15/19 18:44 MPV 9.1 fl (9.4-12.3) L 11/15/19 18:44 Neut % (Auto) 73.8 % (34.0-71.1) H 11/15/19 18:44 Lymph % (Auto) 18.6 % (19.3-51.7) L 11/15/19 18:44 [place] % (Auto) 6.5 % (4.7-12.5) 11/15/19 18:44 Eos % (Auto) 0.6 (0.7-5.8) L 11/15/19 18:44 Baso % (Auto) 0.2 % (0.1-1.2) 11/15/19 18:44 Neut # (Auto) 10.72 K/mm3 (1.56-6.13) H 11/15/19 18:44 Lymph # (Auto) 2.71 K/mm3 (1.18-3.74) 11/15/19 18:44 [place] # (Auto) 0.94 K/mm3 (0.24-0.36) H 11/15/19 18:44 Eos # (Auto) 0.09 K/mm3 (0.04-0.36) 11/15/19 18:44 Baso # (Auto) 0.03 K/mm3 (0.01-0.08) 11/15/19 18:44 Manual Slide Review Normal smear 11/15/19 18:44 Sodium 142 mEq/L (136-145) 11/15/19 18:44 Potassium 3.8 mEq/L (3.5-5.1) 11/15/19 18:44 Chloride 102 mEq/L (98-107) 11/15/19 18:44 Carbon Dioxide 29 mEq/L (21-32) 11/15/19 18:44 Anion Gap 14.8 (5-15) 11/15/19 18:44 BUN 14 mg/dL (7-18) 11/15/19 18:44 Creatinine 0.8 mg/dL (0.55-1.02) 11/15/19 18:44 Est Cr Clr Drug Dosing 97.57 mL/min 11/15/19 18:44 Estimated GFR (MDRD) > 60 mL/min (>60) 11/15/19 18:44 BUN/Creatinine Ratio 17.5 (14-18) 11/15/19 18:44 Glucose 110 mg/dL (74-106) H 11/15/19 18:44 Calcium 9.5 mg/dL (8.5-10.1) 11/15/19 18:44 Total Bilirubin 0.7 mg/dL (0.2-1.0) 11/15/19 18:44 AST 28 U/L (15-37) 11/15/19 18:44 ALT 37 U/L (14-59) 11/15/19 18:44 Alkaline Phosphatase 94 U/L (46-116) 11/15/19 18:44 C-Reactive Protein 1.1 mg/dL (<1.0) H* 11/15/19 18:44 Total Protein 8.4 g/dl (6.4-8.2) H 11/15/19 18:44 Albumin 4.3 g/dl (3.4-5.0) 11/15/19 18:44 Globulin 4.1 gm/dL 11/15/19 18:44 Albumin/Globulin Ratio 1.1 (1-2) 11/15/19 18:44 Lipase 107 U/L (73-393) 11/15/19 18:44 Urine Color Yellow (Yellow) 11/15/19 21:40 Urine Appearance Clear (Clear) 11/15/19 21:40 Urine pH 7.0 (5.0-8.0) 11/15/19 21:40 Ur Specific [place] 1.015 (1.005-1.030) 11/15/19 21:40 Urine Protein Negative (Negative) 11/15/19 21:40 Urine Glucose (UA) Negative (Negative) 11/15/19 21:40 Urine Ketones Negative (Negative) 11/15/19 21:40 Urine Occult Blood Trace-intact (Negative) H 11/15/19 21:40 Urine Nitrite Negative (Negative) 11/15/19 21:40 Urine Bilirubin Negative (Negative) 11/15/19 21:40 Urine Urobilinogen 0.2 (0.2-1.0) 11/15/19 21:40 Ur Leukocyte Esterase Negative (Negative) 11/15/19 21:40 Urine RBC 0-5 /hpf (0-5) 11/15/19 21:40 Urine WBC 0-5 /hpf (0-5) 11/15/19 21:40 Ur Squamous Epith Cells 5-10 /hpf (0-5) H 11/15/19 21:40 Urine Bacteria Few /hpf (FEW) 11/15/19 21:40 Urine Mucus Few /hpf (FEW) 11/15/19 21:40 Urine HCG, Qual Negative (NEGATIVE) 11/15/19 21:40 SARS-CoV-2 RNA (LAKISHA) Negative (NEGATIVE) 11/15/19 21:11 - Allergies Allergies/Adverse Reactions: Allergies Allergy/AdvReac Type Severity Reaction Status Date / Time No Known Allergies Allergy Verified 11/15/19 17:46 - Acknowledgements Anesthesia Type Planned: General Anesthesia Pt an Appropriate Candidate for the Planned Anesthesia: Yes Alternatives and Risks of Anesthesia Discussed w Pt/Guardian: Yes Pt/Guardian Understands and Agrees with Anesthesia Plan: Yes PreAnesthesia Questionnaire - Past Health History Medical/Surgical History: Denies Medical/Surgical History Cardiovascular History: Reports: None Respiratory History: Reports: Asthma Other Respiratory History: out grew it Gastrointestinal History: Reports: GERD Genitourinary History: Reports: Renal Calculus 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: , 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 Musculoskeletal History: Reports: Fracture Other Musculoskeletal History: 4 broken arms, broken nose x 2 Neurological History: Reports: Concussion, Migraines, Seizure Other Neuro History: 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 small child concussions in high school Psychiatric History: Reports: Anxiety, Depression Endocrine/Metabolic History: Reports: Hypothyroidism Hematologic History: Reports: Anemia - Infectious Disease History Infectious Disease History: Reports: MRSA Other Infectious Disease History: With T&A, reports she has been cleared - Past Surgical History HEENT Surgical History: Reports: Oral Surgery, Tonsillectomy - History Comment History Comment: vits - SUBSTANCE USE Smoking Status *Q: Never Smoker Recreational Drug Use History: No - HOME MEDS Home Medications: Home Meds Vit with Ca/FA/Iron [ Plus Iron] 1 each PO DAILY tablet 03/08/19 [Rx] - CURRENT (IN HOUSE) MEDS Current Meds: Current Medications Hydromorphone HCl (Dilaudid) 0.5 mg IVPUSH Q1H PRN PRN Reason: Pain Promethazine HCl 25 mg/ Sodium (Chloride) 51 mls @ 100 mls/hr IV ONETIME PRN PRN Reason: Nausea Sodium Chloride (Saline Flush) 10 ml FLUSH ASDIRECTED PRN PRN Reason: Keep Vein Open Last Admin: 11/15/19 18:43 Dose: 10 ml Documented by: Discontinued Medications Dexamethasone (Dexamethasone) Confirm Administered Dose 20 mg .ROUTE .STK-MED ONE Stop: 11/16/19 08:13 Dexmedetomidine HCl (Precedex) Confirm Administered Dose 200 mcg .ROUTE .STK-MED ONE Stop: 11/16/19 08:13 Diatrizoate Meglum/Diatrizoate Sod (Gastrografin 37%) 120 ml PO ONETIME ONE Stop: 11/15/19 20:36 Last Admin: 11/15/19 20:59 Dose: 120 ml Documented by: Fentanyl (Sublimaze) Confirm Administered Dose 100 mcg .ROUTE .STK-MED ONE Stop: 11/16/19 08:14 Hydromorphone HCl (Dilaudid) 0.5 mg IVPUSH ONETIME ONE Stop: 11/15/19 18:30 Last Admin: 11/15/19 18:42 Dose: 0.5 mg Documented by: Hydromorphone HCl (Dilaudid) 0.5 mg IVPUSH ONETIME ONE Stop: 11/15/19 19:48 Last Admin: 11/15/19 19:55 Dose: 0.5 mg Documented by: Hydromorphone HCl (Dilaudid) 0.5 mg IVPUSH ONETIME ONE Stop: 11/15/19 21:22 Last Admin: 11/15/19 21:40 Dose: 0.5 mg Documented by: Hyoscyamine (Hyomax-Sl) 0.25 mg SL ONETIME ONE Stop: 11/15/19 18:30 Last Admin: 11/15/19 18:43 Dose: 0.25 mg Documented by: Sodium Chloride (Normal Saline) 1,000 mls @ 999 mls/hr IV NOW STA Stop: 11/15/19 19:29 Last Admin: 11/15/19 18:43 Dose: 999 mls/hr Documented by: Piperacillin Sod/Tazobactam (Sod 4.5 gm/ Sodium Chloride) 100 mls @ 200 mls/hr IV ONETIME ONE Stop: 11/15/19 21:21 Last Admin: 11/15/19 21:12 Dose: 200 mls/hr Documented by: Lidocaine HCl (Xylocaine-Mpf 1%) Confirm Administered Dose 4 mls @ as directed .ROUTE .STK-MED ONE Stop: 11/16/19 08:13 Iopamidol (Isovue-300 (61%)) 100 ml IVPUSH ONETIME ONE Stop: 11/15/19 20:36 Last Admin: 11/15/19 20:59 Dose: 100 ml Documented by: Ketorolac Tromethamine (Toradol) Confirm Administered Dose 30 mg .ROUTE .STK-MED ONE Stop: 11/16/19 08:13 Ondansetron HCl (Zofran) 4 mg IVPUSH ONETIME ONE Stop: 11/15/19 18:30 Last Admin: 11/15/19 18:42 Dose: 4 mg Documented by: Ondansetron HCl (Zofran) 4 mg IVPUSH ONETIME ONE Stop: 11/15/19 19:58 Last Admin: 11/15/19 20:00 Dose: 4 mg Documented by: Ondansetron HCl (Zofran) Confirm Administered Dose 4 mg .ROUTE .STK-MED ONE Stop: 11/16/19 08:13 Propofol (Diprivan 20 Ml) Confirm Administered Dose 200 mg .ROUTE .STK-MED ONE Stop: 11/16/19 08:13 Rocuronium [place] (Zemuron) Confirm Administered Dose 50 mg .ROUTE .STK-MED ONE Stop: 11/16/19 08:13 Sodium Chloride (Saline Flush) 10 ml FLUSH ONETIME ONE Stop: 11/15/19 20:36 Last Admin: 11/15/19 20:59 Dose: 10 ml Documented by:
[2019-11-16] MEDS ORDERED: Bupivacaine 0.5%/EPINEPHrine 1:200,000 50 ML MDV ONE (08:35)
[2019-11-16] MEDS ORDERED: Lactated Ringers 1,000 ML IV SCH (08:45)
[2019-11-16] MEDS ORDERED: ceFAZolin 1 GM Vial ONE (09:26)
[2019-11-16] MEDS ORDERED: Morphine 10 MG/ML SDV ONE (09:37)
[2019-11-16] MEDS ORDERED: ePHEDrine 50 MG/ML SDV ONE (10:01)
--- NOTE | 2019-11-16 10:27 | PCM.POSTAN ---
POST ANESTHESIA ASSESSMENT - MENTAL STATUS Mental Status: Somnolent - VITAL SIGNS Vital Signs: Last Vital Signs Temp 36.9 C 11/15/19 17:42 Pulse 80 11/15/19 17:42 Resp 20 11/15/19 17:42 BP 124/80 11/15/19 17:42 Pulse Ox 98 11/15/19 17:42 - RESPIRATORY Respiratory Status: Respiratory Rate WNL, Airway Patent, O2 Saturation Stable - CARDIOVASCULAR CV Status: Pulse Rate WNL, Blood Pressure Stable - GASTROINTESTINAL GI Status: No Symptoms - PAIN Pain Score: 0 (somnolent - precedex) - POST OP HYDRATION Hydration Status: Adequate & Stable - OBSERVATIONS Free Text/Narrative:: Routine extubation in OR without event. HOB > 30 degrees on transfer to PACU. Handoff to Vincent Ac RN. VSS, SV, somnolent, CTAB. No concerns at this time.
--- NOTE | 2019-11-16 10:28 | PCM.PRNOTE ---
- Free Text/Narrative Note: Operative Report Operation: laparoscopic cholecystectomy Date: 11/16/2019 Attending Surgeon: Timothy Vitale MD Indication for Surgery:acute cholecystitis Preoperative antibiotics: 2 g Ancef IV VTE prophylaxis: SCDs Estimated Blood Loss: 5 cc Findings: edematous, mildly inflamed gallbladder. Critical view of safety obtained. Detailed Report: The patient underwent general endotracheal anesthesia after being placed supine on the operating table. Time out was performed, confirming the patients identity and the operation to be performed. The abdomen was prepped and draped in sterile fashion. A Veress needle was inserted into the abdominal cavity below the left costal margin along the mid-clavicular line. The abdomen was insufflated with CO2 to 15 mm Hg. Gas was aspirated below the umbilicus with a syringe in order to ensure safe placement of a 5 mm bladed laparoscopic port. The 5mm 30 degree laparoscope was then inserted and viscera inspected. Two additional 5 mm ports were placed along the right subcostal region under direct vision with the laparoscope. The gallbladder fundus was grasped and retracted cephalad. An additional 12 mm port was placed in the subxiphoid area. The gallbladder infundibulum was grasped with the surgeons left hand grasper and retracted laterally. The hook electrode was used to open the overlying peritoneum, and this plane of dissection was developed along the edges of the gallbladder at its interface with the liver. Dissection was performed with a combination of the hook electrode, suction student accounts manager and [place] grasper, carefully exposing and skeletonizing the cystic duct and artery. A critical view of safety was obtained. Hemolock clips were then placed on both structures. The duct and artery were transected with laparoscopic scissors between the hemolock clips. The hook was then used to dissect the gallbladder free from its attachment to the liver. The specimen was then placed in an Endocatch bag and removed through the subxiphoid port. The liver bed was inspected and appeared hemostatic. The larger subxiphoid port was closed at the level of the fascia with vicryl suture using the PMI laparoscopic suture passer. Pneumoperitoneum was then released. All skin incisions were then closed with placement of subcuticular vicryl suture and dressed with dermabond. A total of 30 cc 0.5% marcaine with epinephrine was used for local anesthesia at the incision sites. The patient tolerated the operation well, was extubated in the operating room and transferred to the PACU for routine post-anesthesia care.
--- NOTE | 2019-11-16 11:10 | PCM48HPAN ---
Post Anesthesia Note - EVALUATION WITHIN 48HRS OF ANESTHETIC Vital Signs in Normal Range: Yes Patient Participated in Evaluation: Yes Respiratory Function Stable: Yes Airway Patent: Yes Cardiovascular Function Stable: Yes Hydration Status Stable: Yes Pain Control Satisfactory: Yes Nausea and Vomiting Control Satisfactory: Yes Mental Status Recovered: Yes Vital Signs: Last Vital Signs Temp 36.9 C 11/15/19 17:42 Pulse 80 11/15/19 17:42 Resp 20 11/15/19 17:42 BP 124/80 11/15/19 17:42 Pulse Ox 98 11/15/19 17:42 - COMMENTS/OBSERVATIONS Free Text/Narrative:: Patient had some transient sinus tachycardia early in recovery related to inability to clear some secretions effectively. But the tachycardia didn't last long. She is now awake. Pain is well-controlled. VSS, SV, TURNER, FAC, CTAB. No concerns at this time. May be discharged when nursing is ready for the same.
[2019-11-16] MEDS ORDERED: oxyCODONE 5 MG Tab PO PRN (11:20)
[2019-11-16 12:42] VITALS: BP 118/66; PULSE 67
== END 2019-11-16 | disposition home or self-care (01) ==
LOC: JD.ED 17:29 → JD.SDS 11-16 06:17
PROVIDERS: ATTEND Surgery
DX: K80.10 Calculus of gallbladder with chronic cholecystitis without obstruction (principal); J45.909 Unspecified asthma, uncomplicated; K21.9 Gastro-esophageal reflux disease without esophagitis; E03.9 Hypothyroidism, unspecified; F41.9 Anxiety disorder, unspecified; F32.9 Major depressive disorder, single episode, unspecified; Z79.899 Other long term (current) drug therapy; Z01.812 Encounter for preprocedural laboratory examination; Z20.828 Contact with and (suspected) exposure to other viral communicable diseases
CPT/HCPCS: 36415; 47562; 74177; 80053; 81001; 81025; 83690; 85025; 86140; 87635; 96361; 96365; 96375; 96376; 99284; A9270; J0690; J1100; J1170; J1885; J2001; J2270; J2370; J2405; J2543; J2704; J3490; J7030; J7050; J7120; Q9963; Q9967; 00790; 99285; J3010; U0002

== ENCOUNTER 2020-04-25 19:56 | Emergency (ER) | payer BC ==
[2020-04-25 20:08] VITALS: BP 135/85; PULSE 117
[2020-04-25] MEDS ORDERED: Ondansetron 4 MG/2 ML SDV IVPUSH ONE (20:18)
[2020-04-25] MEDS ORDERED: Sodium Chloride 0.9% 10 ML Syringe FLUSH PRN (20:18)
[2020-04-25] MEDS ORDERED: Sodium Chloride 0.9% 1,000 ML IV ONE (20:18)
--- NOTE | 2020-04-25 20:24 | EDM.PDOC ---
ED HPI GENERAL MEDICAL PROBLEM - General Chief Complaint: Gastrointestinal Problem Stated Complaint: THROWING UP FOR 8 HOURS Time Seen by Provider: 04/25/20 20:06 Source of Information: Reports: Patient History Limitations: Reports: No Limitations - History of Present Illness INITIAL COMMENTS - FREE TEXT/NARRATIVE: 24-year-old female presents the emergency department complaints of nausea and vomiting for the past 6 hours. Dates she is 24 weeks and has not had any issues with nausea and vomiting up until today. She states she started vomiting about 6 hours ago and states she is probably vomited over 20 times in the last 6 hours. She has been unable to keep any food or fluids down. She states she has now started to feel lightheaded and weak. States throughout her previous she had issues with hyperemesis and needed to be treated with nausea medications and IV fluids numerous times. She denies any recent fever, headache, cough, shortness of breath or diarrhea. She also denies any abdominal pain or vaginal bleeding. 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 TOXICOLOGY History: Reports: , Spontaneous Musculoskeletal History: Reports: Fracture Other Musculoskeletal History: 4 broken arms, broken nose x 2 Neurological History: Reports: Concussion, Migraines, Seizure Other Neuro History: 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 small child concussions in high school Psychiatric History: Reports: Anxiety, Depression Endocrine/Metabolic History: Reports: Hypothyroidism Hematologic History: Reports: Anemia - Infectious Disease History Infectious Disease History: Reports: MRSA Other Infectious Disease History: With T&A, reports she has been cleared - Past Surgical History HEENT Surgical History: Reports: Oral Surgery, Tonsillectomy - History Comment History Comment: vits Social & Family History - Family History Family Medical History: No Pertinent Family History - Tobacco Use Tobacco Use Status *Q: Never Tobacco User Second Hand Smoke Exposure: No - Caffeine Use Caffeine Use: Reports: None - Recreational Drug Use Recreational Drug Use: No - Living Situation & Occupation Living situation: Reports: Single, Alone Occupation: Employed ED ROS GENERAL - Review of Systems Review Of Systems: Comprehensive ROS is negative, except as noted in HPI. ED EXAM, GI/ABD - Physical Exam Exam: See Below Exam Limited By: No Limitations General Appearance: Alert, WD/WN, Mild Distress Ears: Normal External Exam, Hearing Grossly Normal Nose: Normal Inspection Throat/Mouth: Normal Inspection, Normal Lips, Normal Voice, No Airway Compromise Head: Atraumatic, Normocephalic Neck: Normal Inspection, Supple, Non-Tender, Full Range of Motion Respiratory/Chest: No Respiratory Distress, Lungs Clear, Normal Breath Sounds, No Accessory Muscle Use, Chest Non-Tender Cardiovascular: Normal Peripheral Pulses, Regular Rate, Rhythm, No Edema, No Murmur GI/Abdominal Exam: Normal Bowel Sounds, Soft, Non-Tender, No Distention (Female) Exam: Deferred Rectal (Female) Exam: Deferred Back Exam: Normal Inspection, Full Range of Motion Extremities: Normal Inspection, Normal Range of Motion, Non-Tender, No Pedal Edema, Normal Capillary Refill Neurological: Alert, Oriented, Normal Cognition Psychiatric: Normal Affect, Normal Mood Skin Exam: Warm, Dry, Intact, No Rash, Pallor, Petechiae (around her eyes). No: Normal Color Lymphatic: No Adenopathy Course - Vital Signs Text/Narrative:: 24-year-old female who is also 24 months presenting to the emergency department complaints of vomiting over 20 times in the past 6 hours. Patient states that prior to today she has not had any issues with hyperemesis however she has during past pregnancies. Pt states that she presented to the ED because she is unable to keep any food or fluids down. Denies any contact with sick individuals. Denies having fever, but she did have chills prior to arrival. States that she is starting to feel week and dizzy from the vomiting. Pt is pale and there are petechiae noted around her eyes, I suspect from vomiting. I have ordered labs, IV fluids as the patient is tachycardic in the 120's so is likely dehydrated, and zofran to treat nausea and vomiting. Last Recorded V/S: Last Vital Signs Temp 96.4 F L 03/20/21 20:07 Pulse 117 H 04/25/20 20:07 Resp 16 04/25/20 20:07 BP 135/85 04/25/20 20:07 Pulse Ox 94 L 04/25/20 20:07 - Orders/Labs/Meds Orders: Active Orders 24 hr Category Date Time Status UA RFX DRU AND CULT IF INDIC [URIN] Stat Lab 04/25/20 20:57 Ordered Sodium Chloride 0.9% [Saline Flush] Med 04/25/20 20:18 Active 10 ml FLUSH ASDIRECTED PRN Saline Lock Insert [OM.PC] Stat Oth 04/25/20 20:18 Ordered Medication Orders Sodium Chloride (Sodium Chloride 0.9% 10 Ml Syringe) 10 ml FLUSH ASDIRECTED PRN PRN Reason: Keep Vein Open Last Admin: 04/25/20 20:23 Dose: 10 ml Documented by: JLUIO C Labs: Laboratory Tests 04/25/20 04/25/20 Range/Units 20:10 20:10 WBC 16.37 H (3.98-10.04) K/mm3 RBC 4.29 (3.98-5.22) M/mm3 Hgb 12.3 (11.2-15.7) gm/dl Hct 36.6 (34.1-44.9) % MCV 85.3 (79.4-94.8) fl MCH 28.7 (25.6-32.2) pg MCHC 33.6 (32.2-35.5) g/dl RDW Std Deviation 41.1 (36.4-46.3) fL Plt Count 312 (182-369) K/mm3 MPV 9.3 L (9.4-12.3) fl Neut % (Auto) 88.1 H (34.0-71.1) % Lymph % (Auto) 6.7 L (19.3-51.7) % Thurston % (Auto) 4.6 L (4.7-12.5) % Eos % (Auto) 0.3 L (0.7-5.8) Baso % (Auto) 0.1 (0.1-1.2) % Neut # (Auto) 14.42 H (1.56-6.13) K/mm3 Lymph # (Auto) 1.09 L (1.18-3.74) K/mm3 Thurston # (Auto) 0.76 H (0.24-0.36) K/mm3 Eos # (Auto) 0.05 (0.04-0.36) K/mm3 Baso # (Auto) 0.02 (0.01-0.08) K/mm3 Manual Slide Review Normal smear Sodium 141 (136-145) mEq/L Potassium 3.5 (3.5-5.1) mEq/L Chloride 103 (98-107) mEq/L Carbon Dioxide 23 (21-32) mEq/L Anion Gap 18.5 H (5-15) BUN 9 (7-18) mg/dL Creatinine 0.6 (0.55-1.02) mg/dL Est Cr Clr Drug Dosing 130.10 mL/min Estimated GFR (MDRD) > 60 (>60) mL/min BUN/Creatinine Ratio 15.0 (14-18) Glucose 106 (74-106) mg/dL Calcium 8.9 (8.5-10.1) mg/dL Total Bilirubin 0.9 (0.2-1.0) mg/dL AST 17 (15-37) U/L ALT 23 (14-59) U/L Alkaline Phosphatase 91 (46-116) U/L Total Protein 7.3 (6.4-8.2) g/dl Albumin 3.1 L (3.4-5.0) g/dl Globulin 4.2 gm/dL Albumin/Globulin Ratio 0.7 L (1-2) Meds: Medications Generic Name Dose Route Start Last Admin Trade Name Freq PRN Reason Stop Dose Admin Sodium Chloride 10 ml 04/25/20 20:18 04/25/20 20:23 Sodium Chloride 0.9% 10 Ml Syringe FLUSH 10 ml ASDIRECTED PRN Administration Keep Vein Open Discontinued Medications Generic Name Dose Route Start Last Admin Trade Name Freq PRN Reason Stop Dose Admin Sodium Chloride 1,000 mls @ 999 mls/hr 04/25/20 20:18 04/25/20 20:22 Normal Saline IV 04/25/20 21:18 999 mls/hr ONETIME ONE Administration Ondansetron HCl 4 mg 04/25/20 20:18 04/25/20 20:23 Ondansetron 4 Mg/2 Ml Sdv IVPUSH 04/25/20 20:19 4 mg ONETIME ONE Administration - Re-Assessments/Exams Free Text/Narrative Re-Assessment/Exam: 04/25/20 20:55 Hematology reveals a WBC of 16.37, hemoglobin 12.3, hematocrit 36.6, neutrophil percentage 88.1, chemistry reveals sodium of 141, potassium of 3.5, anion gap 18.5, BUN 9, creatinine 0.6, glucose 106 Elevation of pt's WBC likely due to . Pt reports feeling much better and has about 500ml normal saline in. Nausea has resolved. Will discharge her to home once the full liter has infused. 04/25/20 21:34 Normal saline 1 liter has been infused. Pt reports feeling much better. She will be discharged to home. I offered to give her 1 zofran to take home in case nausea and vomiting returned, however she is worried about the cost and would rather just fern picker a prescription from the pharmacy tomorrow. I have sent a prescription for Zofran to the pharmacy. Departure - Departure Time of Disposition: 21:36 Disposition: Home, Self-Care 01 Condition: Good Clinical Impression: Hyperemesis, Nausea and vomiting during - Discharge Information Prescriptions: Ondansetron [Zofran ODT] 4 mg PO Q6H PRN #20 tab.dis PRN Reason: Nausea/Vomiting Referrals: Chilo Boothe MD [Primary Care Provider] - Forms: ED Department Discharge Additional Instructions: You were seen in the emergency department today with vomiting x 6 hours. Labs were completed which were unremarkable. You appeared slightly dehydrated. You were given 1 liter of IV fluids and nausea medication and stated you felt better. I have sent a prescription for Zofran. You can take this medication every 6 hours as needed. Please allow 30 minutes after taking the medication before attempting to eat or drink for it to take full effect. Clear liquids for the next 24 hours and then advance to a bland diet. Follow up with your OB provider this week for follow up. Should your condition worsen or change, do not hesitate to return to the ED. Sepsis Event Note (ED) - Evaluation Sepsis Screening Result: No Definite Risk - Focused Exam Vital Signs: Vital Signs Temp Pulse Resp BP Pulse Ox 04/25/20 20:07 96.4 F L 117 H 16 135/85 94 L - My Orders Last 24 Hours: My Active Orders 04/25/20 20:18 Sodium Chloride 0.9% [Saline Flush] 10 ml FLUSH ASDIRECTED PRN Saline Lock Insert [OM.PC] Stat 04/25/20 20:57 UA RFX DRU AND CULT IF INDIC [URIN] Stat - Assessment/Plan Last 24 Hours: My Active Orders 04/25/20 20:18 Sodium Chloride 0.9% [Saline Flush] 10 ml FLUSH ASDIRECTED PRN Saline Lock Insert [OM.PC] Stat 04/25/20 20:57 UA RFX DRU AND CULT IF INDIC [URIN] Stat
== END 2020-04-25 21:45 | disposition home or self-care (01) ==
LOC: JD.ED 19:56
DX: O21.2 Late vomiting of pregnancy (principal); O99.512 Diseases of the respiratory system complicating pregnancy, second trimester; J45.909 Unspecified asthma, uncomplicated; Z3A.24 24 weeks gestation of pregnancy
CPT/HCPCS: 36415; 80053; 85025; 96374; 99284; J2405; J7030; 99283

== ENCOUNTER 2020-08-10 08:00 | Inpatient (IN) | payer BC ==
--- NOTE | 2020-08-11 05:36 | PCM.LDHP ---
L&D History of Present Illness - General Date of Service: 08/11/20 Admit Problem/Dx: Admission Diagnosis/Problem Admission Diagnosis/Problem 08/11/20 05:24 Jordyn is a 25-year-old 3 para 1-0-1-1 female admitted on the a.m. of 08/11/2020 at 39-3/7 weeks gestational age with an QAMAR of 08/15/2020 for elective repeat section. Source of Information: Patient History Limitations: Reports: No Limitations - History of Present Illness Introduction:: Jordyn is a 25-year-old 3 para 1-0-1-1 female admitted on the a.m. of 08/11/2020 at 39-3/7 weeks gestational age with an QAMAR of 08/15/2020 for elective repeat section. The procedure, its risks, benefits, alternatives of care and follow-up were discussed in detail with the patient. She appears understand and wishes to proceed. Consent is signed. 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 She had menarche at approximately age 13. Cycles are somewhat irregular. QAMAR of 08/15/2020 was based upon her last menstrual period which started on 11/09/2019 and is supported by an early ultrasound at 7 weeks and 1 day, 11 weeks and 1 day and 21 weeks. Her pregnancies include the followin. Miscarriage 12/21/2014 at 5 weeks gestational age. With spontaneous passage. 2. Female infant born 03/06/2019 at 40 weeks gestational age8 pounds 6 ouncescesarean section [facility] [place]. Child's name is Crispin Crane. course: Patient was seen early in at 7 weeks for her first tr ansvaginal ultrasound. She was seen on a very regular basis throughout the . Weight gain through the was from 210 pounds to 217.6 pounds for a 7 pound increase. Her vital signs remained stable throughout the course and her fundal height growth was appropriate. She is group B strep 6 -. She declined her flu shot. Her EPDS score was 10/30 on 04/13/2020. She reported a history of hypothyroidism, although thyroid function studies done on 01/27/2020 were normal. She had the prequel noninvasive screen and this was negative as reported on 02/10/2020. Laboratory testing shows her blood to be a positive with a negative antibody screen. First audrey hemoglobin was 12.8 g/dL and platelets were 305,000. She is rubella immune. RPR is nonreactive. Urine culture showed contamination. Hepatitis B surface antigen and HIV assays were both negative as were her chlamydia and gonorrhea tests. Her TSH on 01/27/2020 was normal at 0.435. Her free T4 was 1.21 at that time. Second trimester labs showed a hemoglobin which was 10.7 g/dL. Her platelets were 295,000. 1 hour GTT was mildly elevated at 134. Her 3-hour GTT was normal with fasting blood sugar 93, 1 hour glucose of 169, 2-hour glucose of 145 and a 3-hour glucose of 107. Platelet count repeated again on 07/21/2020 was 283 and hemoglobin was 10.7. RPR on 05/11/2020 was nonreactive and group B strep screen was negative. Allergies: None Medications: 1. Ferrous sulfate 324 mg p.o. daily 2. vitamins 1 p.o. daily Past medical history: 1. History of hypothyroidism diagnosed when she was 6. She went off medications at age 15 and is not on medications presently. 2. History of depression treated with citalopram after her last . 3. History of miscarriage at 5 weeks gestational age 4. Patient reports for broken arms with 3 fractures in her left arm and one in her right 5. History of broken nose x2 Past surgical history: 1. 2019 for failure to progress 2. Tonsillectomy and adenoidectomy 2007 3. [place] tooth extraction 4. Cholecystectomy November 2019 Family history: Mother is alive and well but on thyroid medication. Father is a live and well on high blood pressure medication and is hypothyroid on medication. 1 brother alive and well. Maternal grandmother is alive and well but has a history of polycystic ovarian syndrome. Maternal grandfather's history is unknown. Paternal grandmother is alive and well but on medications for thyroid. Paternal grandfather is deceasedcause unknown. There is no known family history of cancer, bleeding, clotting disorders, anesthesia related issues or related problems. Both her mother and maternal grandmother have had hysterectomies for benign reasons. Social history: Patient is . She lives in [place] with her Maciel. She works at [employer]. She does not use any significant also alcohol, drugs or tobacco. Review of systems: In general patient has no complaints. Baby has been active and patient has had some pressure symptoms otherwise unremarkable. Skin: Negative Lungs: No infectious symptoms or shortness of breath Cardiovascular: No chest pain or exercise intolerance Breasts: No lumps, changes in size, pain, dimpling, discharge or axillary or supraclavicular concerns. GI: Negative : Body habitus changes associated with . Musculoskeletal: Negative Neurological: Negative Physical exam: In general the patient is well-developed, well-nourished, pleasant female of stated age in no acute distress. On last evaluation clinic on 08/05/2020 her blood pressure was 128/78. Weight was 217.6 pounds with pre weight 210 pounds. Height is 5 feet 5 inches. Prepregnancy body mass index is 35.6. heart rate is 156 bpm. Skin is warm dry without lesions. HEENT, neck and back within normal limits. Lungs are clear with good breath sounds in all lung nevarez. Cardiovascular exam shows regular and rhythm without murmurs. Breast exam is deferred having been done previously and found to be normal is not repeated at this time. Abdomen is gravid with last fundal height in clinic at 39.5 cm. Baby in vertex presentation by Prince maneuver. Genital per per digital exam on 07/26/2020 showed cervix to be 4 cm, 80% effaced, soft, -3, narrow pelvis. Extremities and neurological exam are grossly within normal limits. 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: Reports: , Spontaneous Musculoskeletal History: Reports: Fracture Other Musculoskeletal History: 4 broken arms, broken nose x 2 Neurological History: Reports: Concussion, Migraines, Seizure Other Neuro History: 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 small child concussions in high school Psychiatric History: Reports: Anxiety, Depression Endocrine/Metabolic History: Reports: Hypothyroidism Hematologic History: Reports: Anemia - Infectious Disease History Infectious Disease History: Reports: MRSA Other Infectious Disease History: With T&A, reports she has been cleared - Past Surgical History HEENT Surgical History: Reports: Oral Surgery, Tonsillectomy - History Comment History Comment: vits Social & Family History - Family History Family Medical History: No Pertinent Family History - Caffeine Use Caffeine Use: Reports: None - Living Situation & Occupation Living situation: Reports: Single, Alone Occupation: Employed H&P Review of Systems - Review of Systems: Review Of Systems: See Below L&D Exam - Exam Exam: See Below - Problem List (1) 39 weeks gestation of SNOMED Code(s): 56687713 ICD Code: Z3A.39 - 39 WEEKS GESTATION OF Status: Acute (2) Previous section SNOMED Code(s): 660912923 ICD Code: Z98.891 - HISTORY OF UTERINE SCAR FROM PREVIOUS SURGERY Status: Acute (3) Obesity SNOMED Code(s): 171743177, 696560501 ICD Code: E66.9 - OBESITY, UNSPECIFIED Status: Acute (4) History of depression SNOMED Code(s): 015743032 ICD Code: Z86.59 - PERSONAL HISTORY OF OTHER MENTAL AND BEHAVIORAL DISORDERS Status: Acute Problem List Initiated/Reviewed/Updated: Yes Assessment/Plan Comment:: 1Kim Cobb is a 25-year-old 3 para 1-0-1-1 female admitted on the a.m. of 08/11/2020 at 39-3/7 weeks gestational age with an QAMAR of 08/15/2020 for elective repeat section. The procedure of repeat section, his risk, benefits, alternatives of care and follow-up were discussed in detail. She has signed a consent and wishes to proceed 2. Patient is undecided as to whether she would like to breast-feed or not. 3. A+ blood 4. Rubella immune 5. Prequel noninvasive screen negative. 6. Risk factors for include obesity, history of previous section, history of depression that was treated, history of anemia on iron replacement. Plan: 1. Repeat lower uterine segment transverse section through Pfannenstiel skin incision under spinal block. 2. DVT prophylaxis with SCDs 3. Infection prophylaxis with Ancef 2 g IV preop 4. Preoperative evaluation to consist of CBC, type and screen, Covid19 testing, RPR per protocol.
[2020-08-11] MEDS ORDERED: ceFAZolin 1 GM Vial ONE ×2 (06:35→08:32)
[2020-08-11] MEDS ORDERED: Ondansetron 4 MG/2 ML SDV ONE (06:36)
[2020-08-11] MEDS ORDERED: Oxytocin 10 Units/1 ML SDV ONE ×2 (06:36→08:35)
[2020-08-11] MEDS ORDERED: Ketorolac 30 MG/ML SDV ONE ×2 (06:36→08:35)
[2020-08-11] MEDS ORDERED: ePHEDrine 50 MG/ML SDV ONE (06:36)
[2020-08-11] MEDS ORDERED: Metoclopramide 10 MG/2 ML SDV IVPUSH ONE (07:04)
[2020-08-11] MEDS ORDERED: ceFAZolin 2 GM in Premix Bag 1 BAG IV ONE (07:04)
[2020-08-11] MEDS ORDERED: Sodium Chloride 0.9% 10 ML Syringe FLUSH PRN (07:04)
[2020-08-11] MEDS ORDERED: Citric Acid/Sodium Citrate Solution 30 ML Cup PO ONE (07:04)
[2020-08-11] MEDS ORDERED: Oxytocin/Lactated Ringers 20 UNIT/1,000 ML BAG IV SCH (07:15)
[2020-08-11] MEDS ORDERED: Oxytocin/Lactated Ringers 10 UNIT/1,000 ML BAG IV SCH ×2 (07:15→11:00)
[2020-08-11] MEDS ORDERED: Bupivacaine 0.5% 30 ML SDV ONE (07:50)
--- NOTE | 2020-08-11 08:09 | PCM.PREANE ---
Preanesthetic Assessment - Procedure Proposed Procedure: repeat c section - Anesthesia/Transfusion/Family Hx Anesthesia History: Prior Anesthesia Without Reaction Family History of Anesthesia Reaction: No Transfusion History: No Prior Transfusion(s) - Review of Systems General: No Symptoms Pulmonary: No Symptoms Cardiovascular: No Symptoms Gastrointestinal: No Symptoms Neurological: No Symptoms Other: Reports: Thyroid Problems (in the past. ) - Physical Assessment NPO Status Date: 08/10/20 NPO Status Time: 05:00 (bottle of water) Vital Signs: 98.1 95 97% 98.1 129/73 16 Height: 5 ft 5 in Weight: 99.7 kg ASA Class: 2 Mental Status: Alert & Oriented x3 Airway Class: Mallampati = 1 Dentition: Reports: Normal Dentition Thyro-Mental Finger Breadths: 3 Mouth Opening Finger Breadths: 3 ROM/Head Extension: Full Lungs: Clear to Auscultation, Normal Respiratory Effort Cardiovascular: Regular Rate, Regular Rhythm - Allergies Allergies/Adverse Reactions: Allergies Allergy/AdvReac Type Severity Reaction Status Date / Time No Known Allergies Allergy Verified 08/08/20 10:05 - Blood Blood Available: No - Acknowledgements Anesthesia Type Planned: Epidural Pt an Appropriate Candidate for the Planned Anesthesia: Yes Alternatives and Risks of Anesthesia Discussed w Pt/Guardian: Yes Pt/Guardian Understands and Agrees with Anesthesia Plan: Yes PreAnesthesia Questionnaire - Past Health History Medical/Surgical History: Denies Medical/Surgical History Cardiovascular History: Reports: None Other Respiratory History: out grew it Gastrointestinal History: Reports: GERD Genitourinary History: Reports: Renal Calculus 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: , Spontaneous : 3 Para: 1 Musculoskeletal History: Reports: Fracture Other Musculoskeletal History: 4 broken arms, broken nose x 2 Neurological History: Reports: Concussion, Migraines, Seizure Other Neuro History: 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 small child concussions in high school Psychiatric History: Reports: Anxiety, Depression Hematologic History: Reports: Anemia - Infectious Disease History Infectious Disease History: Reports: MRSA Other Infectious Disease History: With T&A, reports she has been cleared - Past Surgical History HEENT Surgical History: Reports: Oral Surgery, Tonsillectomy GI Surgical History: Reports: Cholecystectomy Female Surgical History: Reports: Section - History Comment History Comment: vits - SUBSTANCE USE Tobacco Use Status *Q: Former Tobacco User (quit 6 years ago) Tobacco Use Within Last Twelve Months: Cigarettes Second Hand Smoke Exposure: No Days Per Week of Alcohol Use: 0 Recreational Drug Use History: No - HOME MEDS Home Medications: Home Meds Vit with Ca/FA/Iron [ Plus Iron] 1 each PO DAILY tablet 03/08/19 [Rx] - CURRENT (IN HOUSE) MEDS Current Meds: Current Medications Lactated Ringer's (Ringers, Lactated) 1,000 mls @ 125 mls/hr IV ASDIRECTED ROYER Oxytocin/Lactated Ringer's (Pitocin In Lr 20 Units/1,000 Ml) 20 unit in 1,000 mls @ 100 mls/hr IV TITRATE ROYER Sodium Chloride (Sodium Chloride 0.9% 10 Ml Syringe) 10 ml FLUSH ASDIRECTED PRN PRN Reason: Keep Vein Open Discontinued Medications Bupivacaine HCl (Bupivacaine 0.5% 30 Ml Sdv) Confirm Administered Dose 30 ml .ROUTE .STK-MED ONE Stop: 08/11/20 07:51 Cefazolin Sodium (Cefazolin 1 Gm Vial) Confirm Administered Dose 2 gm .ROUTE .STK-MED ONE Stop: 08/11/20 06:36 Citric Acid/Sodium Citrate (Citric Acid/Sodium Citrate Solution 30 Ml Cup) 30 ml PO ONETIME ONE Stop: 08/11/20 07:05 Ephedrine Sulfate (Ephedrine 50 Mg/Ml Sdv) Confirm Administered Dose 50 mg .ROUTE .STK-MED ONE Stop: 08/11/20 06:37 Cefazolin Sodium/Dextrose 2 gm (/ Premix) 50 mls @ 100 mls/hr IV ONETIME ONE Stop: 08/11/20 07:33 Oxytocin/Lactated Ringer's (Pitocin In Lr 10 Units/1,000 Ml) 10 unit in 1,000 mls @ 100 mls/hr IV ASDIRECTED ROYER Ketorolac Tromethamine (Ketorolac 30 Mg/Ml Sdv) Confirm Administered Dose 30 mg .ROUTE .STK-MED ONE Stop: 08/11/20 06:37 Metoclopramide HCl (Metoclopramide 10 Mg/2 Ml Sdv) 10 mg IVPUSH ONETIME ONE Stop: 08/11/20 07:05 Ondansetron HCl (Ondansetron 4 Mg/2 Ml Sdv) Confirm Administered Dose 4 mg .ROUTE .STK-MED ONE Stop: 07/06/21 06:37 Oxytocin (Oxytocin 10 Units/1 Ml Sdv) Confirm Administered Dose [facility] Stop: 08/11/20 06:37
[2020-08-11] MEDS: Lactated Ringers 1,000 ML IV SCH ×2 (08:20→09:10)
[2020-08-11] MEDS ORDERED: Morphine PF 10 MG/10 ML SDV ONE (08:32)
[2020-08-11] MEDS ORDERED: Phenylephrine 1% 10 MG/ML SDV ONE (08:32)
[2020-08-11] MEDS ORDERED: Lactated Ringers 1,000 ML ONE (08:39)
[2020-08-11] MEDS ORDERED: diphenhydrAMINE 50 MG/ML SDV IVPUSH PRN ×2 (10:27→12:22)
--- NOTE | 2020-08-11 10:29 | PCM.POSTAN ---
POST ANESTHESIA ASSESSMENT - MENTAL STATUS Mental Status: Alert, Oriented - VITAL SIGNS Vital Signs: Last Vital Signs Temp 36.7 C 08/11/20 08:04 Pulse 95 08/11/20 08:04 Resp 16 08/11/20 08:04 BP 129/73 08/11/20 08:04 Pulse Ox 97 08/11/20 08:04 - RESPIRATORY Respiratory Status: Respiratory Rate WNL, Airway Patent, O2 Saturation Stable - CARDIOVASCULAR CV Status: Pulse Rate WNL, Blood Pressure Stable - GASTROINTESTINAL GI Status: No Symptoms - PAIN Pain Score: 0 - POST OP HYDRATION Hydration Status: Adequate & Stable - OBSERVATIONS Free Text/Narrative:: no anesthesia complications noted
--- NOTE | 2020-08-11 10:51 | PCM.OPNOTE ---
- General Post-Op/Procedure Note Date of Surgery/Procedure: 08/11/20 Operative Procedure(s): Repeat lower in segment transverse section through Pfannenstiel skin incision Findings: Moderate scarring in the abdominal wall from previous . Baby in a vertex presentation. Amniotic fluid clear. Uterus, tubes and ovaries consistent with term . Laurion segment very thin at no more than [address]. Female infant with Apgars of 9 and 9, weight is 7 pounds 7 ounces d elivered at one 958 hours on 08/11/2020. Pre Op Diagnosis: 1. 39-week intrauterine . 2. Previous section with desire for repeat section Post-Op Diagnosis: Same Anesthesia Technique: Spinal Other Anesthesia Type: Marcaine 0.5% - 20 mLlocal Primary Surgeon: Chilo Boothe Secondary Surgeon: Thony Wu Anesthesia Provider: Cal Lynch Reason Fisheries Diver Was Necessary: Assistance, retraction, patient safety, quality of care. Fluid Replacement, Intraop: 2,600 Output, Urine Amount: 350 EBL in mLs: 600 Drain/Tube Comments:: Indwelling bladder catheter Complications: None Condition: Good Free Text/Narrative:: Surgery duration: 24 minutes Surgery duration: Procedure: The patient is appropriately consented. Patient was transferred to the room and placed in a sitting position. Spinal anesthesia was administered. After confirmation of adequate anesthesia patient was placed in a supine position with a wedge under her right side to facilitate left lateral positioning. The patient was prepped and draped in usual fashion after Sullivan catheter was already placed . The anesthetic was checked and found to be adequate. 20 mL of Marcaine 0.5% was injected locally in the Pfannenstiel incision site. The Pfannenstiel skin incision was then made and carried down through skin, subcutaneous and fascial layers. The fascia was then undermined superiorly and inferiorly to allow for adequate operating room. The recti muscles midline and preperitoneal fat was bluntly dissected. Peritoneal cavity was entered longitudinally. The vesicouterine peritoneum was then incised transversely and bladder flap was developed. Myometrium was incised transversely to the level of the amniotic sac. This incision was extended bilaterally in a blunt fashion. The amniotic sac was then ruptured resulting in clear amniotic fluid. A hand is placed in the low uterine segment and the baby's head was brought forth through the incision. The baby was completely delivered using fundal pressure in a routine fashion. The nose and mouth were bulb suctioned. Baby's cord was clamped x2 cut and baby was handed off to attending undertaker helper Dr Wu. Placenta was expressed after cord blood was obtained. Uterus was then exteriorized to allow for easier closure. The cervix was assessed and found to be dilated adequately to allow egress of blood. The uterus was closed in 2 layers. The first layer a running locked suture of 0 Monocryl, the second layer a running locked vertical mattress suture of 0 Monocryl. Hemostasis confirmed at this time. Sponge instrument needle counts are correct. The uterus was returned to the abdominal cavity and lateral gutters were cleared of blood. Once again sponge needle counts are correct. The anterior abdominal wall was closed with a #1 PDS suture from angle to angle. The subcutaneous area was found to be free of any bleeders. interrupted sutures of 3-0 Monocryl were used to reapproximate the subcutaneous layer.Skin was closed with a running subcuticular stitch of 3-0 Monocryl in a vertical mattress suture fashion using a David needle. Prineo mesh/glue was then applied to further approximate the incision. It should be noted that patient received 2 g of Ancef preoperatively for infection prophylaxis and had Pitocin infused after delivery of the placenta to facilitate uterine contraction. She also had sequential compression stockings in place for DVT prophylaxis. Patient was discharged from the operating room in satisfactory condition.
[2020-08-11] MEDS ORDERED: Naloxone 0.4 MG/ML SDV IVPUSH PRN (12:22)
[2020-08-11] MEDS ORDERED: Ondansetron 4 MG/2 ML SDV IV PRN (12:22)
[2020-08-11] MEDS ORDERED: ePHEDrine 50 MG/ML SDV IVPUSH PRN (12:22)
[2020-08-11] MEDS ORDERED: Docusate Sodium 100 MG Cap PO PRN (12:22)
[2020-08-11] MEDS ORDERED: Dextrose 5%-Lactated Ringers 1,000 ML IV SCH (12:22)
[2020-08-11] MEDS ORDERED: Acetaminophen/oxyCODONE 325-5 MG Tab PO PRN (12:22)
[2020-08-11] MEDS: Simethicone 80 MG Tab.Chew PO SCH ×3 (13:03→22:02)
[2020-08-11] MEDS ORDERED: Ibuprofen 800 MG Tab PO SCH (14:30)
[2020-08-11] MEDS: Acetaminophen/oxyCODONE 325-5 MG Tab PO PRN (22:02)
[2020-08-12] MEDS ORDERED: Ibuprofen 800 MG Tab PO SCH
[2020-08-12] MEDS: Simethicone 80 MG Tab.Chew PO SCH ×4 (09:02→20:57)
[2020-08-12] MEDS: Prenatal Multivitamin with Calcium/Folic Acid/Iron Tab PO SCH (09:02)
--- NOTE | 2020-08-12 09:12 | PCM.PNPP ---
- General Info Date of Service: 08/12/20 Subjective Update: No complaints. Doing great. Up and walking Functional Status: Reports: Pain Controlled - Review of Systems General: Reports: No Symptoms HEENT: Reports: No Symptoms Pulmonary: Reports: No Symptoms Cardiovascular: Reports: No Symptoms Gastrointestinal: Reports: No Symptoms Genitourinary: Reports: No Symptoms Musculoskeletal: Reports: No Symptoms Skin: Reports: No Symptoms Neurological: Reports: No Symptoms Psychiatric: Reports: No Symptoms - General Info Date of Service: 08/12/20 - Patient Data Vital Signs - Most Recent: Last Vital Signs Temp 36.4 C 08/11/20 19:27 Pulse 80 08/11/20 19:27 Resp 14 08/12/20 04:00 BP 113/56 L 08/11/20 19:27 Pulse Ox 99 08/12/20 04:00 Weight - Most Recent: 99.79 kg I&O - Last 24 Hours: Intake & Output 08/11/20 08/12/20 08/12/20 22:59 06:59 14:59 Intake Total 1900 Output Total 2500 2500 1800 Balance -600 -2500 -1800 Lab Results - Last 24 Hours: Laboratory Results - last 24 hr 08/11/20 08/11/20 08/11/20 Range/Units 08:17 08:19 08:19 WBC (3.98-10.04) K/mm3 RBC (3.98-5.22) M/mm3 Hgb (11.2-15.7) gm/dl Hct (34.1-44.9) % MCV (79.4-94.8) fl MCH (25.6-32.2) pg MCHC (32.2-35.5) g/dl RDW Std Deviation (36.4-46.3) fL Plt Count (182-369) K/mm3 MPV (9.4-12.3) fl Neut % (Auto) (34.0-71.1) % Lymph % (Auto) (19.3-51.7) % Bowie % (Auto) (4.7-12.5) % Eos % (Auto) (0.7-5.8) Baso % (Auto) (0.1-1.2) % Neut # (Auto) (1.56-6.13) K/mm3 Lymph # (Auto) (1.18-3.74) K/mm3 Bowie # (Auto) (0.24-0.36) K/mm3 Eos # (Auto) (0.04-0.36) K/mm3 Baso # (Auto) (0.01-0.08) K/mm3 RPR Non-reactive (NONREACTIVE) SARS-CoV-2 RNA (LAKISHA) Negative (NEGATIVE) Blood Type A POSITIVE Gel Antibody Screen Negative 08/12/20 Range/Units 05:10 WBC 9.50 (3.98-10.04) K/mm3 RBC 3.36 L (3.98-5.22) M/mm3 Hgb 9.0 L D (11.2-15.7) gm/dl Hct 28.2 L (34.1-44.9) % MCV 83.9 (79.4-94.8) fl MCH 26.8 (25.6-32.2) pg MCHC 31.9 L (32.2-35.5) g/dl RDW Std Deviation 42.8 (36.4-46.3) fL Plt Count 224 (182-369) K/mm3 MPV 9.6 (9.4-12.3) fl Neut % (Auto) 81.2 H (34.0-71.1) % Lymph % (Auto) 10.7 L (19.3-51.7) % Bowie % (Auto) 6.9 (4.7-12.5) % Eos % (Auto) 0.9 (0.7-5.8) Baso % (Auto) 0.1 (0.1-1.2) % Neut # (Auto) 7.70 H (1.56-6.13) K/mm3 Lymph # (Auto) 1.02 L (1.18-3.74) K/mm3 Bowie # (Auto) 0.66 H (0.24-0.36) K/mm3 Eos # (Auto) 0.09 (0.04-0.36) K/mm3 Baso # (Auto) 0.01 (0.01-0.08) K/mm3 RPR (NONREACTIVE) SARS-CoV-2 RNA (LAKISHA) (NEGATIVE) Blood Type Gel Antibody Screen Med Orders - Current: Current Medications Diphenhydramine HCl (Diphenhydramine 50 Mg/Ml Sdv) 25 mg IVPUSH Q6H PRN PRN Reason: Itching or Nausea Docusate Sodium (Docusate Sodium 100 Mg Cap) 100 mg PO Q12H PRN PRN Reason: Constipation Ephedrine Sulfate (Ephedrine 50 Mg/Ml Sdv) 5 mg IVPUSH SEECOMMENT PRN PRN Reason: Other Oxytocin/Lactated Ringer's (Pitocin In Lr 10 Units/1,000 Ml) 10 unit in 1,000 mls @ 125 mls/hr IV TITRATE [facility]; Protocol Last Admin: 08/11/20 11:00 Dose: 125 mls/hr, 125 mls/hr Documented by: Ibuprofen (Ibuprofen 800 Mg Tab) 800 mg PO Q8H [facility] Naloxone HCl (Naloxone 0.4 Mg/Ml Sdv) 0.1 mg IVPUSH SEECOMMENT PRN PRN Reason: Respiratory Depression Ondansetron HCl (Ondansetron 4 Mg/2 Ml Sdv) 4 mg IV Q4H PRN PRN Reason: Nausea/Vomiting Oxycodone/Acetaminophen (Acetaminophen/Oxycodone 325-5 Mg Tab) 1 tab PO Q4H PRN PRN Reason: Pain (moderate 4-6) Last Admin: 08/11/20 22:02 Dose: 1 tab Documented by: Oxycodone/Acetaminophen (Acetaminophen/Oxycodone 325-5 Mg Tab) 2 tab PO Q4H PRN PRN Reason: Pain (severe 7-10) Prenat Multivit/[place]/Iron/Folic Ac ( Multivitamin With Calcium/Folic Acid/Iron Tab) 1 each PO DAILY [facility] Last Admin: 08/12/20 09:02 Dose: 1 each Documented by: Simethicone (Simethicone 80 Mg Tab.Chew) 160 mg PO QID [facility] Last Admin: 08/12/20 09:02 Dose: 160 mg Documented by: Discontinued Medications Bupivacaine HCl (Bupivacaine 0.5% 30 Ml Sdv) Confirm Administered Dose 30 ml .ROUTE .STK-MED ONE Stop: 08/11/20 07:51 Last Admin: 08/11/20 09:55 Dose: 20 ml Documented by: Cefazolin Sodium (Cefazolin 1 Gm Vial) Confirm Administered Dose 2 gm .ROUTE .STK-MED ONE Stop: 08/11/20 06:36 Cefazolin Sodium (Cefazolin 1 Gm Vial) Confirm Administered Dose 2 gm .ROUTE .[facility] ONE Stop: 08/11/20 08:33 Citric Acid/Sodium Citrate (Citric Acid/Sodium Citrate Solution 30 Ml Cup) 30 ml PO ONETIME ONE Stop: 08/11/20 07:05 Last Admin: 08/11/20 08:27 Dose: 30 ml Documented by: Diphenhydramine HCl (Diphenhydramine 50 Mg/Ml Sdv) 25 mg IVPUSH Q6H PRN PRN Reason: Itching Ephedrine Sulfate (Ephedrine 50 Mg/Ml Sdv) Confirm Administered Dose 50 mg .ROUTE .[facility] ONE Stop: 08/11/20 06:37 Lactated Ringer's (Ringers, Lactated) 1,000 mls @ 125 mls/hr IV ASDIRECTED [facility] Last Admin: 08/11/20 09:10 Dose: 125 mls/hr Documented by: Cefazolin Sodium/Dextrose 2 gm (/ Premix) 50 mls @ 100 mls/hr IV ONETIME ONE Stop: 08/11/20 07:33 Oxytocin/Lactated Ringer's (Pitocin In Lr 10 Units/1,000 Ml) 10 unit in 1,000 mls @ 100 mls/hr IV ASDIRECTED [facility] Oxytocin/Lactated Ringer's (Pitocin In Lr 20 Units/1,000 Ml) 20 unit in 1,000 mls @ 100 mls/hr IV TITRATE [facility] Last Admin: 08/11/20 09:55 Dose: 100 mls/hr Documented by: Lactated Ringer's (Ringers, Lactated) Confirm Administered Dose 1,000 mls @ as directed .ROUTE .[facility] ONE Stop: 08/11/20 08:40 Dextrose/Lactated Ringer's (Dextrose 5%-Lactated Ringers) 1,000 mls @ 125 mls/hr IV ASDIRECTED [facility] Stop: 08/11/20 20:21 Last Admin: 08/11/20 17:39 Dose: 125 mls/hr Documented by: Ibuprofen (Ibuprofen 800 Mg Tab) 800 mg PO Q8H [facility] Last Admin: 08/11/20 16:32 Dose: 800 mg Documented by: Ibuprofen (Ibuprofen 800 Mg Tab) 800 mg PO Q8H [facility] Last Admin: 08/12/20 03:16 Dose: 800 mg Documented by: Ketorolac Tromethamine (Ketorolac 30 Mg/Ml Sdv) Confirm Administered Dose 30 mg .ROUTE .STK-MED ONE Stop: 08/11/20 06:37 Ketorolac Tromethamine (Ketorolac 30 Mg/Ml Sdv) Confirm Administered Dose 30 mg .ROUTE .STK-MED ONE Stop: 08/11/20 08:36 Metoclopramide HCl (Metoclopramide 10 Mg/2 Ml Sdv) 10 mg IVPUSH ONETIME ONE Stop: 08/11/20 07:05 Last Admin: 08/11/20 08:28 Dose: 10 mg Documented by: Morphine Sulfate (Morphine Pf 10 Mg/10 Ml Sdv) Confirm Administered Dose 10 mg .ROUTE .STK-MED ONE Stop: 08/11/20 08:33 Ondansetron HCl (Ondansetron 4 Mg/2 Ml Sdv) Confirm Administered Dose 4 mg .ROUTE .STK-MED ONE Stop: 08/11/20 06:37 Oxytocin (Oxytocin 10 Units/1 Ml Sdv) Confirm Administered Dose 20 unit .ROUTE .STK-MED ONE Stop: 08/11/20 06:37 Oxytocin (Oxytocin 10 Units/1 Ml Sdv) Confirm Administered Dose 20 unit .ROUTE .STK-MED ONE Stop: 08/11/20 08:36 Phenylephrine HCl (Phenylephrine 1% 10 Mg/Ml Sdv) Confirm Administered Dose 10 mg .ROUTE .STK-MED ONE Stop: 08/11/20 08:33 Sodium Chloride (Sodium Chloride 0.9% 10 Ml Syringe) 10 ml FLUSH ASDIRECTED PRN PRN Reason: Keep Vein Open - Infant Interaction Disposition, : in Room with Family Support Person: - Recovery Exam Fundal Tone: Firm Fundal Level: 1 Fingerbreadths Below Umbilicus Fundal Placement: Midline Lochia Amount: Small Lochia Color: Rubra/Red Perineum Description: Intact, Minimal Bruising/Swelling Episiotomy/Laceration: None Bladder Status: Indwelling Catheter in Place Urinary Elimination: Indwelling Catheter - Exam General: Alert, Oriented HEENT: Pupils Equal Neck: Supple Lungs: Clear to Auscultation, Normal Respiratory Effort Cardiovascular: Regular Rate, Regular Rhythm GI/Abdominal Exam: Normal Bowel Sounds, Soft, Non-Tender, No Organomegaly, No Distention, No Abnormal Bruit, No Mass, Pelvis Stable Neurological: No New Focal Deficit Psy/Mental Status: Alert, Normal Affect, Normal Mood - Problem List Review Problem List Initiated/Reviewed/Updated: Yes - Assessment Assessment:: POD1 Doing great. No complaints. Likely home tomorrow. Pain control, routine care today. - Plan Plan:: 1Kim Cobb is a 25-year-old 3 para 1-0-1-1 female admitted on the a.m. of 08/11/2020 at 39-3/7 weeks gestational age with an QAMAR of 08/15/2020 for elective repeat section. Underwent. Repeat lower uterine segment transverse section through Pfannenstiel skin incision under spinal block.
--- NOTE | 2020-08-12 09:19 | PCM48HPAN ---
Post Anesthesia Note - EVALUATION WITHIN 48HRS OF ANESTHETIC Vital Signs in Normal Range: Yes Patient Participated in Evaluation: Yes Respiratory Function Stable: Yes Airway Patent: Yes Cardiovascular Function Stable: Yes Hydration Status Stable: Yes Pain Control Satisfactory: Yes Nausea and Vomiting Control Satisfactory: Yes Mental Status Recovered: Yes Vital Signs: Last Vital Signs Temp 36.4 C 08/11/20 19:27 Pulse 80 08/11/20 19:27 Resp 14 08/12/20 04:00 BP 113/56 L 08/11/20 19:27 Pulse Ox 99 08/12/20 04:00 - COMMENTS/OBSERVATIONS Free Text/Narrative:: no anesthesia complications noted
[2020-08-12] MEDS: Ibuprofen 800 MG Tab PO SCH ×2 (11:19→20:57)
[2020-08-12] MEDS: Acetaminophen/oxyCODONE 325-5 MG Tab PO PRN ×2 (11:19→16:54)
[2020-08-13] MEDS: Ibuprofen 800 MG Tab PO SCH ×2 (03:49→10:04)
[2020-08-13 04:27] VITALS: BP 130/71; PULSE 82
[2020-08-13] MEDS: Acetaminophen/oxyCODONE 325-5 MG Tab PO PRN ×2 (04:53→10:04)
--- NOTE | 2020-08-13 06:10 | PCM.DCSUM1 ---
Discharge Summary - Hospital Course Free Text/Narrative:: Jordyn is a 25-year-old 3 now para 2-0-1-2 white female admitted on 08/11/2020 at 39-3/7 weeks gestational age with an QAMAR of 08/15/2020 for elective repeat section. Previous section done for failure to progress. Patient desired repeat section and this was electively scheduled. Please see admission history and physical for details. section was undertaken on 08/11/2020. Details of the procedure are as follows: Patient underwent a lower uterine segment transverse section through Pfannenstiel skin incision. She had moderate scarring in the abdominal wall from previous . Baby in a vertex presentation. Amniotic fluid was clear. Uterus, tubes and ovaries consistent with term . Lower uterine segment was very thin at no more than [address]. Female infant with Apgars of 9 and 9, weight is 7 pounds 7 ounces delivered at 0958 hours on 08/11/2020. Pre Op Diagnosis: 1. 39-week intrauterine . 2. Previous section with desire for repeat section Diagnosis: Stroke: No - Discharge Data Discharge Date: 08/13/20 Discharge Disposition: Home, Self-Care 01 Condition: Good - Referral to Home Health Primary Care Physician: Chilo Boothe MD - Discharge Diagnosis/Problem(s) (1) 39 weeks gestation of SNOMED Code(s): 01887603 ICD Code: Z3A.39 - 39 WEEKS GESTATION OF Status: Acute Current Visit: No (2) Previous section SNOMED Code(s): 791813035 ICD Code: Z98.891 - HISTORY OF UTERINE SCAR FROM PREVIOUS SURGERY Status: Acute Current Visit: No (3) Obesity SNOMED Code(s): 683752096, 180057785 ICD Code: E66.9 - OBESITY, UNSPECIFIED Status: Acute Current Visit: No (4) History of depression SNOMED Code(s): 305681054 ICD Code: Z86.59 - PERSONAL HISTORY OF OTHER MENTAL AND BEHAVIORAL DISORDERS Status: Acute Current Visit: No - Patient Summary/Data Operative Procedure(s) Performed: Repeat lower in segment transverse section through Pfannenstiel skin incision - Patient Instructions Diet: Usual Diet as Tolerated (Nursing diet with increased calories and calcium as recommended) Activity: As Tolerated (No intercourse or tampons until seen back. No lifting greater than 15 pounds or driving a car x1 week.) Driving: Do Not Drive Showering/Bathing: May Shower Wound/Incision Care: Keep Operative Site/Wound Site Clean and Dry Notify Provider of: Fever, Increased Pain, Swelling and Redness, Drainage - Discharge Plan Home Medications: Home Meds Vit with Ca/FA/Iron [ Plus Iron] 1 each PO DAILY tablet 03/08/19 [Rx] Acetaminophen/oxyCODONE [Percocet 325-5 MG] 2 tab PO Q4H PRN tablet 08/13/20 [Rx] Ibuprofen [Motrin] 800 mg PO Q8H tablet 08/13/20 [Rx] Referrals: Chilo Boothe MD [Primary Care Provider] - (Return to clinicDr. Boothe2 weeks.) - Discharge Summary/Plan Comment DC Time >30 min.: No Discharge Summary/Plan Comment: Discharge instructions: 1. Discharge home 2. Diet, activity and follow-up discussed with patient. Recommend nursing diet with increased calories and calcium. 3. Precautions given concern increased pain, bleeding, temperature, signs/symptoms of DVT/PE. 4. Medications per home medication was printed, discussed with and given to the patient. 5. Return to clinic-Dr. Boothe-[facility] in 2 weeks. Diagnosis: 1. Term -delivered 2. History of previous section x1 with desire for repeatdelivered by repeat section Condition: Good - Patient Data Vitals - Most Recent: Last Vital Signs Temp 36.4 C 08/13/20 03:28 Pulse 82 08/13/20 03:28 Resp 16 08/13/20 03:28 BP 130/71 08/13/20 03:28 Pulse Ox 96 08/13/20 03:28 Weight - Most Recent: 99.79 kg I&O - Last 24 hours: Intake & Output 08/12/20 08/12/20 08/13/20 14:59 22:59 06:59 Output Total 2550 Balance -2550 Med Orders - Current: Current Medications Diphenhydramine HCl (Diphenhydramine 50 Mg/Ml Sdv) 25 mg IVPUSH Q6H PRN PRN Reason: Itching or Nausea Docusate Sodium (Docusate Sodium 100 Mg Cap) 100 mg PO Q12H PRN PRN Reason: Constipation Last Admin: 08/12/20 16:54 Dose: 100 mg Documented by: Ephedrine Sulfate (Ephedrine 50 Mg/Ml Sdv) 5 mg IVPUSH SEECOMMENT PRN PRN Reason: Other Oxytocin/Lactated Ringer's (Pitocin In Lr 10 Units/1,000 Ml) 10 unit in 1,000 mls @ 125 mls/hr IV TITRATE [facility]YER; Protocol Last Admin: 08/11/20 11:00 Dose: 125 mls/hr, 125 mls/hr Documented by: Ibuprofen (Ibuprofen 800 Mg Tab) 800 mg PO Q8H [facility] Last Admin: 08/13/20 03:49 Dose: 800 mg Documented by: Naloxone HCl (Naloxone 0.4 Mg/Ml Sdv) 0.1 mg IVPUSH SEECOMMENT PRN PRN Reason: Respiratory Depression Ondansetron HCl (Ondansetron 4 Mg/2 Ml Sdv) 4 mg IV Q4H PRN PRN Reason: Nausea/Vomiting Oxycodone/Acetaminophen (Acetaminophen/Oxycodone 325-5 Mg Tab) 1 tab PO Q4H PRN PRN Reason: Pain (moderate 4-6) Last Admin: 08/13/20 04:53 Dose: 1 tab Documented by: Oxycodone/Acetaminophen (Acetaminophen/Oxycodone 325-5 Mg Tab) 2 tab PO Q4H PRN PRN Reason: Pain (severe 7-10) Last Admin: 08/12/20 22:05 Dose: 2 tab Documented by: Prenat Multivit/Behavioral Health Clinician/Iron/Folic Ac ( Multivitamin With Calcium/Folic Acid/Iron Tab) 1 each PO DAILY [facility] Last Admin: 08/12/20 09:02 Dose: 1 each Documented by: Simethicone (Simethicone 80 Mg Tab.Chew) 160 mg PO QID [facility] Last Admin: 08/12/20 20:57 Dose: 160 mg Documented by: Discontinued Medications Bupivacaine HCl (Bupivacaine 0.5% 30 Ml Sdv) Confirm Administered Dose 30 ml .ROUTE .STK-MED ONE Stop: 08/11/20 07:51 Last Admin: 08/11/20 09:55 Dose: 20 ml Documented by: Cefazolin Sodium (Cefazolin 1 Gm Vial) Confirm Administered Dose 2 gm .ROUTE .STK-MED ONE Stop: 08/11/20 06:36 Cefazolin Sodium (Cefazolin 1 Gm Vial) Confirm Administered Dose 2 gm .ROUTE .[facility] ONE Stop: 08/11/20 08:33 Citric Acid/Sodium Citrate (Citric Acid/Sodium Citrate Solution 30 Ml Cup) 30 ml PO ONETIME ONE Stop: 08/11/20 07:05 Last Admin: 08/11/20 08:27 Dose: 30 ml Documented by: Diphenhydramine HCl (Diphenhydramine 50 Mg/Ml Sdv) 25 mg IVPUSH Q6H PRN PRN Reason: Itching Ephedrine Sulfate (Ephedrine 50 Mg/Ml Sdv) Confirm Administered Dose 50 mg .ROUTE .[facility] ONE Stop: 08/11/20 06:37 Lactated Ringer's (Ringers, Lactated) 1,000 mls @ 125 mls/hr IV ASDIRECTED [facility] Last Admin: 08/11/20 09:10 Dose: 125 mls/hr Documented by: Cefazolin Sodium/Dextrose 2 gm (/ Premix) 50 mls @ 100 mls/hr IV ONETIME ONE Stop: 08/11/20 07:33 Oxytocin/Lactated Ringer's (Pitocin In Lr 10 Units/1,000 Ml) 10 unit in 1,000 mls @ 100 mls/hr IV ASDIRECTED [facility] Oxytocin/Lactated Ringer's (Pitocin In Lr 20 Units/1,000 Ml) 20 unit in 1,000 mls @ 100 mls/hr IV TITRATE [facility] Last Admin: 08/11/20 09:55 Dose: 100 mls/hr Documented by: Lactated Ringer's (Ringers, Lactated) Confirm Administered Dose 1,000 mls @ as directed .ROUTE .[facility] ONE Stop: 08/11/20 08:40 Dextrose/Lactated Ringer's (Dextrose 5%-Lactated Ringers) 1,000 mls @ 125 mls/hr IV ASDIRECTED [facility] Stop: 08/11/20 20:21 Last Admin: 08/11/20 17:39 Dose: 125 mls/hr Documented by: Ibuprofen (Ibuprofen 800 Mg Tab) 800 mg PO Q8H [facility] Last Admin: 08/11/20 16:32 Dose: 800 mg Documented by: Ibuprofen (Ibuprofen 800 Mg Tab) 800 mg PO Q8H [facility] Last Admin: 08/12/20 03:16 Dose: 800 mg Documented by: Ketorolac Tromethamine (Ketorolac 30 Mg/Ml Sdv) Confirm Administered Dose 30 mg .ROUTE .STK-MED ONE Stop: 08/11/20 06:37 Ketorolac Tromethamine (Ketorolac 30 Mg/Ml Sdv) Confirm Administered Dose 30 mg .ROUTE .STK-MED ONE Stop: 08/11/20 08:36 Metoclopramide HCl (Metoclopramide 10 Mg/2 Ml Sdv) 10 mg IVPUSH ONETIME ONE Stop: 08/11/20 07:05 Last Admin: 08/11/20 08:28 Dose: 10 mg Documented by: Morphine Sulfate (Morphine Pf 10 Mg/10 Ml Sdv) Confirm Administered Dose 10 mg .ROUTE .STK-MED ONE Stop: 08/11/20 08:33 Ondansetron HCl (Ondansetron 4 Mg/2 Ml Sdv) Confirm Administered Dose 4 mg .ROUTE .STK-MED ONE Stop: 08/11/20 06:37 Oxytocin (Oxytocin 10 Units/1 Ml Sdv) Confirm Administered Dose 20 unit .ROUTE .STK-MED ONE Stop: 08/11/20 06:37 Oxytocin (Oxytocin 10 Units/1 Ml Sdv) Confirm Administered Dose 20 unit .ROUTE .STK-MED ONE Stop: 08/11/20 08:36 Phenylephrine HCl (Phenylephrine 1% 10 Mg/Ml Sdv) Confirm Administered Dose 10 mg .ROUTE .STK-MED ONE Stop: 08/11/20 08:33 Sodium Chloride (Sodium Chloride 0.9% 10 Ml Syringe) 10 ml FLUSH ASDIRECTED PRN PRN Reason: Keep Vein Open
[2020-08-13] MEDS: Prenatal Multivitamin with Calcium/Folic Acid/Iron Tab PO SCH (10:03)
[2020-08-13] MEDS: Simethicone 80 MG Tab.Chew PO SCH (10:03)
== END 2020-08-13 10:23 | disposition home or self-care (01) | DRG 540 ==
LOC: JD.OB 08-11 07:46
PROVIDERS: ADMIT Obstetrics & Gynecology; ATTEND Obstetrics & Gynecology
PROC: 10D00Z1 Extraction of Products of Conception, Low, Open Approach (ICD-10-PCS; principal; 2020-08-11)
DX: O34.211 Maternal care for low transverse scar from previous cesarean delivery (principal); Z37.0 Single live birth; O99.214 Obesity complicating childbirth; O99.52 Diseases of the respiratory system complicating childbirth; J45.909 Unspecified asthma, uncomplicated; O99.02 Anemia complicating childbirth; D64.9 Anemia, unspecified; Z20.822 Contact with and (suspected) exposure to COVID-19; Z3A.39 39 weeks gestation of pregnancy
CPT/HCPCS: 01961; 36415; 59025; 85025; 86592; 86803; 86850; 86900; 86901; A9270-GY; J0690; J1885; J2270; J2370; J2405; J2590; J2765; J3490; J7120; J7121; U0002

== ENCOUNTER 2020-08-16 08:28 | Emergency (ER) | payer BC ==
[2020-08-16 08:45] VITALS: BP 124/73; PULSE 107
--- NOTE | 2020-08-16 08:59 | EDM.PDOC ---
ED HPI GENERAL MEDICAL PROBLEM - General Chief Complaint: Wound Recheck Stated Complaint: 5 DAYS AGO NOW HAS FEVER Time Seen by Provider: 08/16/20 08:54 Source of Information: Reports: Patient History Limitations: Reports: No Limitations - History of Present Illness INITIAL COMMENTS - FREE TEXT/NARRATIVE: 25-year-old female presents to the ED 5 days post with acute onset of fever and chills with rigors last evening. She felt that there is increased hardness and swelling superior to the right side of her Pfannenstiel wound that may be a source of infection. She denies cough sputum production sore throat. She did have a Sullivan catheter in place for period of time after and during surgery. Her lochia she believes has been fairly minimal. Denies any dysuria urgency or frequency. Denies any backache. Of note she did have a spinal anesthetic. Denies any headache and negative let her my L` Hermites sign. Patient did take some Motrin this morning for relief of fever. Of note she is not breast-feeding. Does not feel any increased pain in either breast although breasts are engorged. Onset: Sudden Onset Date: 08/15/20 (Empty him started late last night and early this morning.) Duration: Hour(s):, Waxing/Waning Location: Reports: Generalized (Generalized onset of fever chills and rigors.) Quality: Reports: Other (Normal pain and discomfort. She is aware of a firmness above the right side of the of the abdominal wall which is mildly tender to touch as compared to the left side.) Severity: Moderate Improves with: Reports: Medication (Fever was improved with Motrin.) Worsens with: Reports: None Context: Reports: Other (5 days postop ). Denies: Activity, Exercise, Lifting, Sick Contact, Trauma Associated Symptoms: Reports: Fever/Chills. 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 (Motrin last evening and early this morning) Right Abdomen Pain Score (Numeric/FACES): 4 - Related Data Allergies Allergy/AdvReac Type Severity Reaction Status Date / Time No Known Allergies Allergy Verified 08/16/20 08:45 Home Meds: Home Meds Acetaminophen/oxyCODONE [Percocet 325-5 MG] 2 tab PO Q4H PRN tablet 08/13/20 [Rx] Ibuprofen [Motrin] 800 mg PO Q8H tablet 08/13/20 [Rx] Cefdinir [Omnicef] 300 mg PO BID #18 cap 08/16/20 [Rx] Past Medical History - Past Health History Medical/Surgical History: Denies Medical/Surgical History Cardiovascular History: Reports: None Respiratory History: Reports: Asthma Other Respiratory History: out grew it Gastrointestinal History: Reports: GERD Genitourinary History: Reports: Renal Calculus 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 Not requiring medication. Endocrine/Metabolic History: Reports: Hypothyroidism Other Endocrine/Metabolic History: Pt states its "fine" and she is not taking anything for it currently. Hematologic History: Reports: Anemia - Infectious Disease History Infectious Disease History: Reports: None Other Infectious Disease History: With T&A, reports she has been cleared - Past Surgical History HEENT Surgical History: Reports: Oral Surgery, Tonsillectomy Other HEENT Surgeries/Procedures: [place] teeth GI Surgical History: Reports: Cholecystectomy Female Surgical History: Reports: Section - History Comment History Comment: vits Social & Family History - Family History Family Medical History: No Pertinent Family History - Tobacco Use Tobacco Use Status *Q: Never Tobacco User - Caffeine Use Caffeine Use: Reports: None - Recreational Drug Use Recreational Drug Use: No - Living Situation & Occupation Living situation: Reports: Single, Alone Occupation: Employed ED ROS GENERAL - Review of Systems Review Of Systems: See Below Constitutional: Reports: Fever, Chills, Malaise, Fatigue. Denies: Weakness, Decreased Appetite, Weight Loss HEENT: Reports: No Symptoms Respiratory: Reports: No Symptoms Cardiovascular: Reports: No Symptoms Endocrine: Reports: Fatigue GI/Abdominal: Reports: Abdominal Pain (Normal postoperative abdominal pain.) : Reports: Frequency, Other (She feels her lochia is normal.) Musculoskeletal: Reports: No Symptoms Skin: Reports: Other (Aware of a firmness above the right side of her wound in her abdominal wall which is mildly tender.) Neurological: Reports: No Symptoms. Denies: Confusion, Dizziness, Headache, Numbness, Paresthesia, Pre-Existing Deficit, Seizure, Syncope, Tingling, Tremors, Trouble Speaking, Difficulty Walking, Weakness Psychiatric: Reports: No Symptoms Hematologic/Lymphatic: Reports: No Symptoms Immunologic: Reports: No Symptoms ED EXAM, GENERAL - Physical Exam Exam: See Below Exam Limited By: No Limitations General Appearance: Alert, WD/WN, No Apparent Distress, Other (Temperature is 36.3 degrees. Heart rate 107 and sinus. Respiratory 16 O2 sats of 95% room air. BP 124/73) Eye Exam: Bilateral Eye: Normal Inspection, PERRL (Minimal blepharal pallor. No scleral icterus.) Throat/Mouth: Normal Inspection, Normal Lips, Normal Oropharynx Neck: Normal Inspection, Supple, Non-Tender, Full Range of Motion. No: Lymphadenopathy (L), Lymphadenopathy (R) Respiratory/Chest: No Respiratory Distress, Lungs Clear, Normal Breath Sounds, No Accessory Muscle Use Cardiovascular: Normal Peripheral Pulses, No Edema, No Gallop, No Murmur, No Rub, Tachycardia (Tachycardia at the bedside 108/min.) Peripheral Pulses: 3+: Carotid (L), Carotid (R), Posterior Tibial (L), Posterior Tibial (R), Dorsalis Pedis (L), Dorsalis Pedis (R) GI/Abdominal: Normal Bowel Sounds, Soft, Other (She has tenderness along her Pfannenstiel incision which appears to be healing adequately. She does have marked ecchymoses superior to the wound bilaterally there is a slight firmness to the right upper abdominal wall approximately 3 cm in diameter compatible with a hematoma. This area h). No: Guarding, Rigid, Rebound, Tender Extremities: Normal Inspection, Normal Range of Motion, Non-Tender, No Pedal Edema Neurological: Alert, Oriented, CN II-XII Intact, Normal Cognition Psychiatric: Normal Affect, Normal Mood Skin Exam: Warm, Dry, Normal Color, No Rash Course - Vital Signs Last Recorded V/S: Last Vital Signs Temp 36.3 C 08/16/20 08:40 Pulse 107 H 08/16/20 08:40 Resp 16 08/16/20 08:40 BP 124/73 08/16/20 08:40 Pulse Ox 95 08/16/20 08:40 - Orders/Labs/Meds Orders: Active Orders 24 hr Category Date Time Status CULTURE BLOOD [BC] Stat Lab 08/16/20 09:23 Received CULTURE BLOOD [BC] Stat Lab 08/16/20 09:35 Received CULTURE URINE [MREF] Stat Lab 08/16/20 11:27 Ordered Dextrose 5%-0.9% NaCl [Dextrose 5%-Normal Saline] 1,000 Med 08/16/20 09:00 Active ml IV ASDIRECTED Blood Culture x2 Reflex Set [OM.PC] Stat Oth 08/16/20 08:53 Ordered Medication Orders Dextrose/Sodium Chloride (Dextrose 5%-Normal Saline) 1,000 mls @ 125 mls/hr IV ASDIRECTED ROYER Last Admin: 08/16/20 09:49 Dose: 125 mls/hr Documented by: JOCELYNN Labs: Laboratory Tests 08/16/20 08/16/20 08/16/20 Range/Units 09:23 09:23 09:23 WBC 11.44 H (3.98-10.04) K/mm3 RBC 3.97 L (3.98-5.22) M/mm3 Hgb 10.7 L D (11.2-15.7) gm/dl Hct 33.1 L (34.1-44.9) % MCV 83.4 (79.4-94.8) fl MCH 27.0 (25.6-32.2) pg MCHC 32.3 (32.2-35.5) g/dl RDW Std Deviation 43.2 (36.4-46.3) fL Plt Count 331 D (182-369) K/mm3 MPV 8.8 L (9.4-12.3) fl Neutrophils % (Manual) 85 H (40-60) % Band Neutrophils % 0 (0-10) % Lymphocytes % (Manual) 11 L (20-40) % Atypical Lymphs % 0 % Monocytes % (Manual) 4 (2-10) % Eosinophils % (Manual) 0 L (0.7-5.8) % Basophils % (Manual) 0 L (0.1-1.2) Platelet Estimate Adequate RBC Morph Comment Normal Sodium 143 (136-145) mEq/L Potassium 3.8 (3.5-5.1) mEq/L Chloride 105 (98-107) mEq/L Carbon Dioxide 26 (21-32) mEq/L Anion Gap 15.8 H (5-15) BUN 8 (7-18) mg/dL Creatinine 0.9 (0.55-1.02) mg/dL Est Cr Clr Drug Dosing 85.98 mL/min Estimated GFR (MDRD) > 60 (>60) mL/min BUN/Creatinine Ratio 8.9 L (14-18) Glucose 93 (70-99) mg/dL Lactic Acid 0.8 (0.4-2.0) mmol/L Calcium 8.7 (8.5-10.1) mg/dL Total Bilirubin 0.6 (0.2-1.0) mg/dL AST 18 (15-37) U/L ALT 27 (14-59) U/L Alkaline Phosphatase 109 (46-116) U/L C-Reactive Protein 17.3 H* (<1.0) mg/dL Total Protein 6.7 (6.4-8.2) g/dl Albumin 2.6 L (3.4-5.0) g/dl Globulin 4.1 gm/dL Albumin/Globulin Ratio 0.6 L (1-2) Urine Color (Yellow) Urine Appearance (Clear) Urine pH (5.0-8.0) Ur Specific [place] (1.005-1.030) Urine Protein (Negative) Urine Glucose (UA) (Negative) Urine Ketones (Negative) Urine Occult Blood (Negative) Urine Nitrite (Negative) Urine Bilirubin (Negative) Urine Urobilinogen (0.2-1.0) Ur Leukocyte Esterase (Negative) Urine RBC (0-5) /hpf Urine WBC (0-5) /hpf Ur Epithelial Cells (0-5) /hpf Urine Bacteria (FEW) /hpf Urine Mucus (FEW) /hpf 08/16/20 Range/Units 09:45 WBC (3.98-10.04) K/mm3 RBC (3.98-5.22) M/mm3 Hgb (11.2-15.7) gm/dl Hct (34.1-44.9) % MCV (79.4-94.8) fl MCH (25.6-32.2) pg MCHC (32.2-35.5) g/dl RDW Std Deviation (36.4-46.3) fL Plt Count (182-369) K/mm3 MPV (9.4-12.3) fl Neutrophils % (Manual) (40-60) % Band Neutrophils % (0-10) % Lymphocytes % (Manual) (20-40) % Atypical Lymphs % % Monocytes % (Manual) (2-10) % Eosinophils % (Manual) (0.7-5.8) % Basophils % (Manual) (0.1-1.2) Platelet Estimate RBC Morph Comment Sodium (136-145) mEq/L Potassium (3.5-5.1) mEq/L Chloride (98-107) mEq/L Carbon Dioxide (21-32) mEq/L Anion Gap (5-15) BUN (7-18) mg/dL Creatinine (0.55-1.02) mg/dL Est Cr Clr Drug Dosing mL/min Estimated GFR (MDRD) (>60) mL/min BUN/Creatinine Ratio (14-18) Glucose (70-99) mg/dL Lactic Acid (0.4-2.0) mmol/L Calcium (8.5-10.1) mg/dL Total Bilirubin (0.2-1.0) mg/dL AST (15-37) U/L ALT (14-59) U/L Alkaline Phosphatase (46-116) U/L C-Reactive Protein (<1.0) mg/dL Total Protein (6.4-8.2) g/dl Albumin (3.4-5.0) g/dl Globulin gm/dL Albumin/Globulin Ratio (1-2) Urine Color Yellow (Yellow) Urine Appearance Clear (Clear) Urine pH 8.0 (5.0-8.0) Ur Specific [place] 1.020 (1.005-1.030) Urine Protein Negative (Negative) Urine Glucose (UA) Negative (Negative) Urine Ketones Negative (Negative) Urine Occult Blood 3+ H (Negative) Urine Nitrite Negative (Negative) Urine Bilirubin Negative (Negative) Urine Urobilinogen 0.2 (0.2-1.0) Ur Leukocyte Esterase 2+ H (Negative) Urine RBC 5-10 H (0-5) /hpf Urine WBC 10-20 H (0-5) /hpf Ur Epithelial Cells 0-5 (0-5) /hpf Urine Bacteria Few (FEW) /hpf Urine Mucus Few (FEW) /hpf Meds: Medications Generic Name Dose Route Start Last Admin Trade Name Maria Luisa PRN Reason Stop Dose Admin Dextrose/Sodium Chloride 1,000 mls @ 125 mls/hr 08/16/20 09:00 08/16/20 09:49 Dextrose 5%-Normal Saline IV 125 mls/hr ASDIRECTED ROYER Administration Discontinued Medications Generic Name Dose Route Start Last Admin Trade Name Maria Luisa PRN Reason Stop Dose Admin Ceftriaxone Sodium Confirm 08/16/20 09:52 08/16/20 09:55 Ceftriaxone 2 Gm Advvial Administered 08/16/20 09:53 Not Given Dose 2 gm IV .STK-MED ONE Ceftriaxone Sodium 2 gm/ 100 mls @ 200 mls/hr 08/16/20 09:42 08/16/20 09:55 Sodium Chloride IV 08/16/20 10:11 200 mls/hr ONETIME ONE Administration - Radiology Interpretation Free Text/Narrative:: 25-year-old female presents to the ED 5 days post for delivery of a term female infant. She presents to the ED due to development of fever chills with rigors during the night. She started to feel unwell about 2200 hrs. last evening. She ended up taking Motrin 800 mg around 200 hours this morning with resolution of fever. At the time of presentation in the ED she is afebrile. Ear nose and throat exam is normal chest is clear to all station percussion heart is sinus no murmurs identified but she does have sinus tachycardia at 107/min. Her scar appears to be healing adequately with no sign of drainage or erythema. Diffuse bruising or ecchymoses of the superior abdominal wall above the Pfannenstiel incision almost up to the umbilicus appreciated bilaterally. There is a small 3 cm hematoma evident superior to the scar on the right side which is mildly tender to palpation. Clinically is a hematoma I doubt the source of any kind of fever or chills. She did have a Sullivan catheter in for period of time after . Plan septic work-up to be done and including a urinalysis. IV will be D5 normal saline at 125 mils per hour. She will be given Rocephin 2 g IV after blood cultures x2 and urinalysis have been collected. - Re-Assessments/Exams Free Text/Narrative Re-Assessment/Exam: 08/16/20 09:43 urinalysis has been collected. I am going to give him her empiric antibiotic therapy with Rocephin 2 g IV. 08/16/20 10:19 White count is mildly elevated at 11.44. Differential pending. Hemoglobin slightly low at 10.7 with hematocrit of 33.1. Platelet count normal at 331,000. Chemistry shows a sodium of 143 and a potassium of 3.8. Chloride is 105 with a bicarb of 26. Anion gap is 15.8. BUN is 8 with a creatinine of 0.9 and GFR greater than 60. Glucose is 93. Lactic acid is 0.8. Calcium is 8.7. Liver function normal CRP pending total protein is 6.7 with an albumin fraction of 2.6 urinalysis pending 08/16/20 11:08 Differential on the white count is 85% neutrophils with no bands cells noted. CRP is 17.3. 08/16/20 11:24Urinalysis shows 3+ occult blood 2+ leukocyte esterase 5-10 RBCs and 10-20 white blood cells per high-power field. Urine culture will be ordered. Patient will be placed on Omnicef 300 mg twice daily for the next 9 days to clear up polynephritis. Departure - Departure Time of Disposition: 11:28 Disposition: Home, Self-Care 01 Condition: Fair Clinical Impression: Acute upper urinary tract infection - Discharge Information *PRESCRIPTION DRUG MONITORING PROGRAM REVIEWED*: Not Applicable *COPY OF PRESCRIPTION DRUG MONITORING REPORT IN PATIENT LING: Not Applicable Prescriptions: Cefdinir [Omnicef] 300 mg PO BID #18 cap Referrals: Chilo Boothe MD [Primary Care Provider] - Forms: ED Department Discharge Additional Instructions: Evaluation in the emergency room this morning in regards to development of fever chills and rigors during the night. You are currently on day 5 post . The rate is increased ecchymosis or bruising above the surgical wound across the lower abdomen with a hematoma approximately 3 cm in diameter right mid lower abdomen. This is tender but does not appear to be the source of infection. The urinalysis obtained is strongly positive for an infective process. You therefore have developed bilateral kidney infection or pyelonephritis. You were treated with intravenous fluids and initial dose of antibiotic Rocephin 2 g intravenously. You will need to take oral antibiotic Omnicef 300 mg twice daily for the next 9 days to clear this infection up completely. First dose would be due tomorrow morning. Continue Motrin 600 mg every 6 hours and Tylenol 650 mg every 3 hours after Motrin dosed if you have still running a temperature greater than 101 degrees. Expect marked improvement with resolution of fever usually within 48 to 72 hours. If not better in this timeframe you need to be seen again. Sepsis Event Note (ED) - Evaluation Sepsis Screening Result: No Definite Risk - Focused Exam Vital Signs: Vital Signs Temp Pulse Resp BP Pulse Ox 08/16/20 08:40 36.3 C 107 H 16 124/73 95 - My Orders Last 24 Hours: My Active Orders 08/16/20 08:53 Blood Culture x2 Reflex Set [OM.PC] Stat 08/16/20 09:00 Dextrose 5%-0.9% NaCl [Dextrose 5%-Normal Saline] 1,000 ml IV ASDIRECTED 08/16/20 09:23 CULTURE BLOOD [BC] Stat 08/16/20 09:35 CULTURE BLOOD [BC] Stat 08/16/20 11:27 CULTURE URINE [MREF] Stat - Assessment/Plan Last 24 Hours: My Active Orders 08/16/20 08:53 Blood Culture x2 Reflex Set [OM.PC] Stat 08/16/20 09:00 Dextrose 5%-0.9% NaCl [Dextrose 5%-Normal Saline] 1,000 ml IV ASDIRECTED 08/16/20 09:23 CULTURE BLOOD [BC] Stat 08/16/20 09:35 CULTURE BLOOD [BC] Stat 08/16/20 11:27 CULTURE URINE [MREF] Stat
[2020-08-16] MEDS ORDERED: Dextrose 5%-0.9% NaCl 1,000 ML IV SCH (09:00)
[2020-08-16] MEDS ORDERED: cefTRIAXone 2 GM in Sodium Chloride 0.9% 100 ML IV ONE (09:42)
[2020-08-16] MEDS ORDERED: cefTRIAXone 2 GM AdvVial IV ONE (09:52)
== END 2020-08-16 11:35 | disposition home or self-care (01) ==
LOC: JD.ED 08:28
DX: O86.20 Urinary tract infection following delivery, unspecified (principal); O99.13 Other diseases of the blood and blood-forming organs and certain disorders involving the immune mechanism complicating the puerperium; D72.829 Elevated white blood cell count, unspecified; O99.53 Diseases of the respiratory system complicating the puerperium; J45.909 Unspecified asthma, uncomplicated; Z79.899 Other long term (current) drug therapy
CPT/HCPCS: 36415; 80053; 81001; 83605; 85007; 85027; 86140; 87040; 87086; 96365; 99283; J0696; J7042

== ENCOUNTER 2020-09-09 00:18 | Emergency (ER) | payer BC ==
[2020-09-09 00:33] VITALS: BP 125/81; PULSE 85
--- NOTE | 2020-09-09 02:01 | EDM.PDOC ---
ED HPI GENERAL MEDICAL PROBLEM - General Chief Complaint: COTTON BAG SEWER Problem Stated Complaint: VAGINAL BLEEDING POST Time Seen by Provider: 09/09/20 01:38 Source of Information: Reports: Patient History Limitations: Reports: No Limitations - History of Present Illness INITIAL COMMENTS - FREE TEXT/NARRATIVE: Mrs. Mehta is a very pleasant 25-year-old woman who now presents the ED stating that she underwent a section on 08/11/2020. She states that she has been experiencing vaginal bleeding ever since. She states that it was tapering, and nearly stopped, however, increased to 2 nights ago, 09/07/2020. She then had a gush of blood with a clot tonight. She estimates her current bleeding to be about 1 pad every 2 hours. Here in the ED, she states th at she is developing some pelvic cramps, although she was not experiencing pain or discomfort earlier. She reports feeling lightheaded yesterday. Here in the ED, the patient is found to be hemodynamically stable, afebrile, saturating 95% on room air. She appears to be comfortable, no acute distress. Other than the vaginal bleeding, the patient reports that she was diagnosed with a UTI 3 weeks ago, which was treated. Otherwise, the patient denies having a recent fever, chills, sore throat, ear pain, nasal or sinus congestion, cough, dyspnea, chest pain, palpitations, nausea, vomiting, constipation, diarrhea, abdominal pain, recent weight gain or weight loss, recent bloody bowel movements or black bowel movements, recent joint aches, headaches, or rashes. The patient does not have a PCP. Her Mathematical Engineering Technician is Dr. Chilo Boothe. Uterine Pain Score (Numeric/FACES): 2 - Related Data Allergies Allergy/AdvReac Type Severity Reaction Status Date / Time No Known Allergies Allergy Verified 09/09/20 00:28 Home Meds: Home Meds . [No Known Home Meds] 09/09/20 [History] Past Medical History Genitourinary History: Reports: Renal Calculus COTTON BAG SEWER History: Reports: Spontaneous (x 1) : 3 Para: 2 Musculoskeletal History: Reports: Fracture (4 broken arms, broken nose x 2) Psychiatric History: Reports: Anxiety, Depression (untreated) Endocrine/Metabolic History: Reports: Hypothyroidism (untreated) - Past Surgical History HEENT Surgical History: Reports: Oral Surgery (dental extractions), Tonsillectomy GI Surgical History: Reports: Cholecystectomy (Nov 2019) Female Surgical History: Reports: Section (x 2) - History Comment History Comment: vits Social & Family History - Tobacco Use Tobacco Use Status *Q: Unknown Ever Used Tobacco Years of Tobacco use: 6 Packs/Tins Daily: 0.5 Month/Year Tobacco Last Used: Quit 2016 Tobacco Use Comment: Started smoking 2010 - Caffeine Use Caffeine Use: Reports: None - Alcohol Use Alcohol Use History: Yes Alcohol Use Frequency: Socially - Recreational Drug Use Recreational Drug Use: No - Living Situation & Occupation Living situation: Reports: , with Spouse, with Family (2 kids) Occupation: Unemployed ED ROS GENERAL - Review of Systems Review Of Systems: Comprehensive ROS is negative, except as noted in HPI. ED EXAM, RENAL/ - Physical Exam Exam: See Below Exam Limited By: No Limitations General Appearance: Alert, WD/WN, No Apparent Distress Eye Exam: Bilateral Eye: EOMI, Normal Inspection Ears: Normal External Exam, Hearing Grossly Normal Nose: Normal Inspection Throat/Mouth: Normal Inspection, Normal Lips, Normal Voice, No Airway Compromise Head: Atraumatic, Normocephalic Neck: Normal Inspection, Full Range of Motion Respiratory/Chest: No Respiratory Distress, Lungs Clear, Normal Breath Sounds, No Accessory Muscle Use Cardiovascular: Normal Peripheral Pulses, Regular Rate, Rhythm, No Gallop, No JVD, No Murmur, No Rub GI/Abdominal: Normal Bowel Sounds, Soft, No Organomegaly, No Distention, No Abnormal Bruit, No Mass, Tender (Mild, suprapubic only. Nontender elsewhere.) (Female) Exam: Other (There was a small blood clot by the cervix, which was removed, revealing some bloody mucus within the cervix, and the cervix appearing to be open up to half a centimeter. No active bleeding. No cervical or vaginal lesions seen.) Back Exam: Normal Inspection, Full Range of Motion, NT Extremities: Normal Inspection, Normal Range of Motion, Normal Capillary Refill Neurological: Alert, Oriented, Normal Cognition, No Motor/Sensory Deficits Psychiatric: Normal Affect Skin Exam: Warm, Dry, Intact, Normal Color, No Rash Course - Vital Signs Last Recorded V/S: Last Vital Signs Temp 36.4 C 09/09/20 00:29 Pulse 85 09/09/20 00:29 Resp 17 09/09/20 00:29 BP 125/81 09/09/20 00:29 Pulse Ox 95 09/09/20 00:29 Orthostatic Blood Pressure [ 124/83 Standing] Orthostatic Blood Pressure [ 112/65 Supine] - Orders/Labs/Meds Orders: Active Orders 24 hr Category Date Time Status Orthostatic Vital Signs [RC] STAT Care 09/09/20 03:14 Active Transvaginal Non OB [US] Stat Exams 09/09/20 01:58 Taken Labs: Laboratory Tests 09/09/20 09/09/20 Range/Units 02:05 02:05 WBC 5.56 (3.98-10.04) K/mm3 RBC 4.78 (3.98-5.22) M/mm3 Hgb 12.2 D (11.2-15.7) gm/dl Hct 39.2 (34.1-44.9) % MCV 82.0 (79.4-94.8) fl MCH 25.5 L (25.6-32.2) pg MCHC 31.1 L (32.2-35.5) g/dl RDW Std Deviation 42.7 (36.4-46.3) fL Plt Count 271 (182-369) K/mm3 MPV 9.6 (9.4-12.3) fl Neutrophils % (Manual) 45 (40-60) % Band Neutrophils % 0 (0-10) % Lymphocytes % (Manual) 40 (20-40) % Atypical Lymphs % 0 % Monocytes % (Manual) 6 (2-10) % Eosinophils % (Manual) 9 H (0.7-5.8) % Basophils % (Manual) 0 L (0.1-1.2) Platelet Estimate Adequate RBC Morph Comment Normal Sodium 147 H (136-145) mEq/L Potassium 3.7 (3.5-5.1) mEq/L Chloride 111 H (98-107) mEq/L Carbon Dioxide 25 (21-32) mEq/L Anion Gap 14.7 (5-15) BUN 14 (7-18) mg/dL Creatinine 0.8 (0.55-1.02) mg/dL Est Cr Clr Drug Dosing 96.73 mL/min Estimated GFR (MDRD) > 60 (>60) mL/min BUN/Creatinine Ratio 17.5 (14-18) Glucose 84 (70-99) mg/dL Calcium 9.0 (8.5-10.1) mg/dL Total Bilirubin 0.7 (0.2-1.0) mg/dL AST 17 (15-37) U/L ALT 28 (14-59) U/L Alkaline Phosphatase 92 (46-116) U/L Total Protein 7.6 (6.4-8.2) g/dl Albumin 4.0 (3.4-5.0) g/dl Globulin 3.6 gm/dL Albumin/Globulin Ratio 1.1 (1-2) - Re-Assessments/Exams Free Text/Narrative Re-Assessment/Exam: 09/09/20 01:58 As above, the patient underwent a on 08/11/2020, and has had vaginal bleeding since, although it tapered to nearly nothing recently. She then experienced an increase in vaginal bleeding since Monday night, with a gush of blood including a blood clot tonight. She estimates that she is bleeding about one pad every 2 hours. She is only now developing mild pelvic cramping. She reports feeling lightheaded yesterday. On physical exam, she has mild suprapubic tenderness. I have ordered orthostatics, a CBC, CMP, and transvaginal ultrasound of the uterus. 09/09/20 02:31 On pelvic examination, there was a small blood clot by the cervix, which was removed, revealing some bloody mucus within the cervix, and the cervix appearing to be open up to half a centimeter. No active bleeding. No cervical or vaginal lesions seen. 09/09/20 03:15 The patient is not orthostatic. Her CBC is unremarkable. Her CMP is remarkable for mild hypernatremia of 147, with remainder of her CMP being unremarkable. 09/09/20 05:22 Transvaginal ultrasound of the pelvis is read by Breanna as: 1. Unremarkable uterus and left ovary. 2. Nonvisualized right ovary. 3. Minimal free pelvic fluid which may be physiologic. 09/09/20 05:26 Test results discussed with the patient. As above, today's work-up is completely unremarkable. My initial plan had been to call the Mathematical Engineering Technician on- call, however, given her completely negative work-up, I am not sure that that is necessary. I think it would be appropriate for the patient to call Dr. Boothe's office in a few hours, and the patient is agreeable with that. I will discharge her home. Departure - Departure Time of Disposition: 05:28 Disposition: Home, Self-Care 01 Condition: Good Clinical Impression: Dysfunctional uterine bleeding - Discharge Information *PRESCRIPTION DRUG MONITORING PROGRAM REVIEWED*: Not Applicable *COPY OF PRESCRIPTION DRUG MONITORING REPORT IN PATIENT LING: Not Applicable Referrals: Chilo Boothe MD [Primary Care Provider] - Forms: ED Department Discharge Additional Instructions: You were seen in the emergency room for persistent vaginal bleeding following a section on 08/11/2020, with an increase over the past couple of days, including a gush of blood with passing clots last night. Work-up in the ER included positional blood pressure checks, some blood tests, and a transvaginal ultrasound of your pelvis. Your entire work-up was unremarkable. You are not intravascularly depleted or dehydrated, you are not anemic, and the ultrasound found no abnormalities. We recommend that you contact the office of your Mathematical Engineering Technician, Dr. Chilo Boothe, later this morning, to arrange to be seen. If any other problems, please do not hesitate to return to the ER. Sepsis Event Note (ED) - Evaluation Sepsis Screening Result: No Definite Risk - Focused Exam Vital Signs: Vital Signs Temp Pulse Resp BP Pulse Ox 09/09/20 00:29 36.4 C 85 17 125/81 95 - My Orders Last 24 Hours: My Active Orders 09/09/20 01:58 Transvaginal Non OB [US] Stat 09/09/20 03:14 Orthostatic Vital Signs [RC] STAT - Assessment/Plan Last 24 Hours: My Active Orders 09/09/20 01:58 Transvaginal Non OB [US] Stat 09/09/20 03:14 Orthostatic Vital Signs [RC] STAT
[2020-09-09] MEDS ORDERED: Sodium Chloride 0.9% 1,000 ML IV ONE (03:14)
--- NOTE | 2020-09-09 07:49 | US ---
Pelvic ultrasound: Multiple real-time images were obtained transvaginally. Comparison: Prior pelvic ultrasound study of 05/14/15. Uterus is anteverted. No myometrial abnormality is appreciated. Endometrial thickness is 1.1 cm. Small amount of free fluid is seen within the cul-de-sac believed to be physiologic. Right ovary is not visualized due to bowel gas. Left ovary is seen and appears normal. Measurements: Left ovary: 4.1 x 2.1 x 2.3 cm Uterus: Length 10.4 cm, AP height 4.8 cm, transverse width 6.4 cm Impression: 1. Nonvisualized right ovary. 2. Small amount of free fluid within the cul-de-sac which is felt to be physiologic. 3. Other portions of the pelvic ultrasound are unremarkable. Diagnostic code #2 I agree with preliminary report from [facility], finalized on 09/09/20, 6:20 AM CDT, code 1
== END 2020-09-09 05:34 | disposition home or self-care (01) ==
LOC: JD.ED 00:18
DX: N93.8 Other specified abnormal uterine and vaginal bleeding (principal); Z87.59 Personal history of other complications of pregnancy, childbirth and the puerperium
CPT/HCPCS: 36415; 76830; 76830-26; 80053; 85007; 85027; 99283; 99284-25

== ENCOUNTER → 2021-07-13 | Day surgery (SDC) | payer BC ==
[~2021-07-13] MED LIST changes: +Acetaminophen/oxyCODONE 325-5 MG Tab PO PRN; -Bupivacaine 0.25% 10 ML SDV ONE; +Bupivacaine 0.5% 30 ML SDV ONE; +Dexamethasone 4 MG/ML SDV IVPUSH ONE; +Dexamethasone 4 MG/ML SDV IVPUSH PRN; +HYDROmorphone 0.5 MG/0.5 ML Syringe IVPUSH PRN; +Ibuprofen 600 MG Tab PO PRN; +Ketorolac 30 MG/ML SDV IVPUSH SCH; +Ketorolac 30 MG/ML SDV ONE; +Lactated Ringers 1,000 ML IV SCH; +Lidocaine 1% 4 ML ONE; +Lidocaine 1% with EPINEPHrine 1:100,000 10 ML MDV ONE; +Lidocaine 1%/Sod Bicarbonate in NS 8.4% 1 ML Syringe IDERM PRN; -Lidocaine 2% with EPINEPHrine 1:200,000 20 ML SDV ONE; +Neostigmine Methylsulfate 10 MG/10 ML MDV ONE; +Ondansetron 4 MG/2 ML SDV IVPUSH PRN; +Ondansetron 4 MG/2 ML SDV ONE; +Propofol 200 MG/20 ML SDV ONE; +Rocuronium 50 MG/5 ML Vial ONE; -Sodium Bicarbonate 8.4% 50 MEQ/50 ML SDV ONE; +Sodium Chloride 0.9% 10 ML Syringe FLUSH PRN; +Sodium Chloride 0.9% 10 ML Syringe FLUSH SCH; +Sodium Chloride 0.9% 50 ML SDV ONE; +ceFAZolin 1 GM Vial ONE; +diphenhydrAMINE 50 MG/ML SDV IVPUSH SCH; +fentaNYL 100 MCG/2 ML SDV IVPUSH PRN; +fentaNYL 100 MCG/2 ML SDV ONE
[2021-07-13] MEDS: Acetaminophen/oxyCODONE 325-5 MG Tab PO ONE ×2 (10:54→11:29)
[2021-07-13 11:49] VITALS: BP 112/62; PULSE 68
== END | disposition home or self-care (01) ==
LOC: JD.SDS 07:04
PROVIDERS: ATTEND Obstetrics & Gynecology
DX: N80.0 Endometriosis of uterus (principal); N87.9 Dysplasia of cervix uteri, unspecified; N72 Inflammatory disease of cervix uteri; N83.8 Other noninflammatory disorders of ovary, fallopian tube and broad ligament; E03.9 Hypothyroidism, unspecified; Z79.899 Other long term (current) drug therapy; Z98.890 Other specified postprocedural states; Z90.49 Acquired absence of other specified parts of digestive tract
CPT/HCPCS: 58552; A9270; J0690; J1100; J1885; J2405; J2704; J2710; J3010; J3490; J7120

== ENCOUNTER 2022-11-21 19:47 | Emergency (ER) | payer BC, OTHER ==
[2022-11-21] MEDS ORDERED: Sodium Chloride 0.9% 10 ML Syringe FLUSH PRN (20:22)
[2022-11-21 21:05] LABS: BASOPHILS ABSOLUTE AUTO 0.1 K/mm3 (0.0-0.2); BASOPHILS PERCENT AUTO 0.7 % (0.0-1.0); EOSINOPHILS ABSOLUTE AUTO 0.1 K/mm3 (0.0-0.4); EOSINOPHILS PERCENT AUTO 1.9 % (0.0-6.0); HEMATOCRIT 39.2 % (37.0-47.0); HEMOGLOBIN 13.6 gm/dl (12.0-16.0); IMMATURE GRAN ABSOLUTE AUTO 0.01 K/mm3 (0.00-0.05); IMMATURE GRAN PERCENT AUTO 0.1 % (0.0-0.4); LYMPHOCYTES ABSOLUTE AUTO 2.8 K/mm3 (1.0-4.8); LYMPHOCYTES PERCENT AUTO 41.4 % (24.0-44.0); MEAN CORPUSCULAR HGB CONC 34.7 g/dl (32.0-36.0); MEAN CORPUSCULAR VOLUME 86.5 fl (83.0-99.0); MONOCYTES ABSOLUTE AUTO 0.5 K/mm3 (0.0-0.8); MONOCYTES PERCENT AUTO 7.7 % (0.0-8.0); NEUTROPHILS ABSOLUTE AUTO 3.2 K/mm3 (1.8-7.7); NEUTROPHILS PERCENT AUTO 48.2 % (41.0-71.0); PLATELET COUNT,PLT 189 K/mm3 (150-400); RED BLOOD CELL COUNT 4.53 M/mm3 (4.10-5.30); WHITE BLOOD CELL COUNT,WBC 6.71 K/mm3 (3.9-11.3)
[2022-11-21 21:29] LABS: A/G RATIO 1.1 (1-2); ALANINE AMINOTRANSFERASE,ALT 19 U/L (14-59); ALBUMIN 3.8 g/dl (3.4-5.0); ALKALINE PHOSPHATASE 56 U/L (46-116); ANION GAP 14.4 (5-15); ASPARTATE AMNIOTRANSFERASE,AST 11 U/L (15-37); BLOOD UREA NITROGEN,BUN 13 mg/dL (7-18); BUN/CREATININE RATIO 18.6 (14-18); C-REACTIVE PROTEIN <0.2 mg/dL (<1.0); CALCIUM 8.7 mg/dL (8.5-10.1); CARBON DIOXIDE,CO2 25 mEq/L (21-32); CHLORIDE,CL 105 mEq/L (98-107); CREATININE 0.7 mg/dL (0.55-1.02); EST CRCL DRUG DOSING (CG) 108.63 mL/min; ESTIMATED GFR 121 mL/min (>60); GLUCOSE RANDOM 90 mg/dL (70-99); LIPASE 56 U/L (16-77); POTASSIUM,K 3.4 mEq/L (3.5-5.1); PROTEIN TOTAL,TP 7.2 g/dl (6.4-8.2); SODIUM,NA 141 mEq/L (136-145)
[2022-11-21 21:45] LABS: BILIRUBIN TOTAL 1.3 mg/dL (0.2-1.0)
[2022-11-22 03:00] VITALS: BP 105/63; PULSE 72
== END 2022-11-21 21:45 | disposition home or self-care (01) ==
LOC: JD.ED 19:47
DX: R10.31 Right lower quadrant pain (principal); Z87.891 Personal history of nicotine dependence
CPT/HCPCS: 36415; 80053; 83690; 85025; 86140; 99284

== ENCOUNTER 2023-09-08 22:22 | Emergency (ER) | payer SELFPAY ==
[2023-09-08 22:35] VITALS: PULSE 80
[2023-09-08] MEDS: Pantoprazole 40 MG Vial IVPUSH ONE (23:27)
[2023-09-08] MEDS: Sodium Chloride 0.9% 1,000 ML IV ONE (23:27)
[2023-09-08 23:28] LABS: BASOPHILS PERCENT AUTO 0.6 % (0.0-1.0); EOSINOPHILS ABSOLUTE AUTO 0.1 K/mm3 (0.0-0.4); EOSINOPHILS PERCENT AUTO 1.3 % (0.0-6.0); HEMOGLOBIN 13.4 gm/dl (12.0-16.0); IMMATURE GRAN ABSOLUTE AUTO 0.02 K/mm3 (0.00-0.05); IMMATURE GRAN PERCENT AUTO 0.3 % (0.0-0.4); LYMPHOCYTES PERCENT AUTO 29.8 % (24.0-44.0); MEAN CORPUSCULAR HGB CONC 34.4 g/dl (32.0-36.0); MEAN CORPUSCULAR VOLUME 87.2 fl (83.0-99.0); MONOCYTES ABSOLUTE AUTO 0.6 K/mm3 (0.0-0.8); MONOCYTES PERCENT AUTO 8.5 % (0.0-8.0); NEUTROPHILS PERCENT AUTO 59.5 % (41.0-71.0); PLATELET COUNT,PLT 208 K/mm3 (150-400); RED BLOOD CELL COUNT 4.47 M/mm3 (4.10-5.30); WHITE BLOOD CELL COUNT,WBC 6.68 K/mm3 (3.9-11.3)
[2023-09-08 23:46] LABS: INR 1.01; PROTHROMBIN TIME 10.7 SECONDS (9.7-12.0)
[2023-09-08 23:51] LABS: A/G RATIO 1.2 (1-2); ALANINE AMINOTRANSFERASE,ALT 22 U/L (14-59); ALBUMIN 3.8 g/dl (3.4-5.0); ALKALINE PHOSPHATASE 63 U/L (46-116); ANION GAP 7.8 (5-15); ASPARTATE AMNIOTRANSFERASE,AST 11 U/L (15-37); BILIRUBIN TOTAL 1.1 mg/dL (0.2-1.0); BLOOD UREA NITROGEN,BUN 11 mg/dL (7-18); BUN/CREATININE RATIO 13.8 (14-18); CALCIUM 8.9 mg/dL (8.5-10.1); CARBON DIOXIDE,CO2 30 mEq/L (21-32); CHLORIDE,CL 105 mEq/L (98-107); CREATININE 0.8 mg/dL (0.55-1.02); ESTIMATED GFR 103 mL/min (>60); GLUCOSE RANDOM 92 mg/dL (70-99); LIPASE 55 U/L (16-77); MAGNESIUM 1.8 mg/dL (1.8-2.4); POTASSIUM,K 3.8 mEq/L (3.5-5.1); PROTEIN TOTAL,TP 6.9 g/dl (6.4-8.2); SODIUM,NA 139 mEq/L (136-145)
[2023-09-09] MEDS: Iopamidol 612 MG/ML 30 ML SDV IVPUSH ONE (00:04)
[2023-09-09] MEDS: Iopamidol 612 MG/ML 100 ML Bottle IVPUSH ONE (00:04)
[2023-09-09 01:09] VITALS: BP 120/80
== END 2023-09-09 01:09 | disposition home or self-care (01) ==
LOC: JD.ED 22:22
DX: K62.5 Hemorrhage of anus and rectum (principal); Z87.891 Personal history of nicotine dependence; J45.909 Unspecified asthma, uncomplicated; Z90.49 Acquired absence of other specified parts of digestive tract; Z90.710 Acquired absence of both cervix and uterus; Z79.899 Other long term (current) drug therapy
CPT/HCPCS: 36415; 74177; 80053; 80307; 82272; 83690; 83735; 84703; 85025; 85610; 86850; 86900; 86901; 96374; 99284; J2470; J7030; Q9967

== ENCOUNTER 2023-12-25 17:42 | Emergency (ER) | payer SELFPAY ==
[2023-12-25 17:56] VITALS: BP 118/69; PULSE 132
[2023-12-25] MEDS ORDERED: Sodium Chloride 0.9% 10 ML Syringe FLUSH PRN (18:52)
[2023-12-25 19:09] LABS: BASOPHILS PERCENT AUTO 0.4 % (0.0-1.0); EOSINOPHILS PERCENT AUTO 0.4 % (0.0-6.0); HEMATOCRIT 36.8 % (37.0-47.0); HEMOGLOBIN 13.1 gm/dl (12.0-16.0); IMMATURE GRAN ABSOLUTE AUTO 0.01 K/mm3 (0.00-0.05); IMMATURE GRAN PERCENT AUTO 0.2 % (0.0-0.4); LYMPHOCYTES ABSOLUTE AUTO 0.2 K/mm3 (1.0-4.8); LYMPHOCYTES PERCENT AUTO 4.5 % (24.0-44.0); MEAN CORPUSCULAR HGB CONC 35.6 g/dl (32.0-36.0); MEAN CORPUSCULAR VOLUME 84.2 fl (83.0-99.0); MEAN PLATELET VOLUME 9.5 fl (9.4-12.3); MONOCYTES ABSOLUTE AUTO 0.5 K/mm3 (0.0-0.8); MONOCYTES PERCENT AUTO 11.4 % (0.0-8.0); NEUTROPHILS ABSOLUTE AUTO 3.7 K/mm3 (1.8-7.7); NEUTROPHILS PERCENT AUTO 83.1 % (41.0-71.0); PLATELET COUNT,PLT 168 K/mm3 (150-400); RED BLOOD CELL COUNT 4.37 M/mm3 (4.10-5.30); WHITE BLOOD CELL COUNT,WBC 4.48 K/mm3 (3.9-11.3)
[2023-12-25 19:27] LABS: CORONAVIRUS COVID-19 NAA NEGATIVE (NEGATIVE); INFLUENZA A NAA POSITIVE (NEGATIVE); RESPIRATORY SYNCYTIAL VIR NAA NEGATIVE (NEGATIVE)
[2023-12-25] MEDS: Dextrose 5%-0.9% NaCl 1,000 ML IV SCH (19:29)
[2023-12-25] MEDS: Ibuprofen 600 MG Tab PO ONE (19:30)
[2023-12-25 19:32] LABS: A/G RATIO 1.3 (1-2); ALBUMIN 3.9 g/dl (3.4-5.0); ANION GAP 11.1 (5-15); BILIRUBIN TOTAL 1.3 mg/dL (0.2-1.0); BUN/CREATININE RATIO 7.1 (14-18); CALCIUM 8.5 mg/dL (8.5-10.1); CREATININE 0.7 mg/dL (0.55-1.02); EST CRCL DRUG DOSING (CG) 107.67 mL/min; POTASSIUM,K 3.1 mEq/L (3.5-5.1); PROTEIN TOTAL,TP 6.9 g/dl (6.4-8.2)
[2023-12-25 19:35] LABS: LACTIC ACID 0.6 mmol/L (0.4-2.0)
[2023-12-25 20:19] LABS: APPEARANCE,URINE CLEAR (Clear); BILIRUBIN,URINE NEGATIVE (Negative); COLOR,URINE YELLOW (Yellow); GLUCOSE,URINE NEGATIVE (Negative); KETONES,URINE NEGATIVE (Negative); LEUKOCYTE ESTERASE,URINE NEGATIVE (Negative); NITRITE,URINE NEGATIVE (Negative); OCCULT BLOOD,URINE NEGATIVE (Negative); PH,URINE 7.5 (5.0-8.0); PROTEIN,URINE NEGATIVE (Negative); UROBILINOGEN,URINE 0.2 (0.2-1.0)
[2023-12-25] MEDS: Oseltamivir 75 MG Cap PO ONE (20:46)
== END 2023-12-25 20:53 | disposition home or self-care (01) ==
LOC: JD.ED 17:42
DX: J10.1 Influenza due to other identified influenza virus with other respiratory manifestations (principal); E03.9 Hypothyroidism, unspecified; Z79.899 Other long term (current) drug therapy; Z90.49 Acquired absence of other specified parts of digestive tract; Z90.710 Acquired absence of both cervix and uterus; Z87.891 Personal history of nicotine dependence
CPT/HCPCS: 0241U; 36415; 71045; 80053; 81003; 83605; 84703; 85025; 87040; 96360; 99284; A9270; J7042

== ENCOUNTER 2024-10-20 07:33 | Emergency (ER) | payer BC ==
[2024-10-20] MEDS: Ketorolac 30 MG/ML SDV IM ONE (08:24)
[2024-10-20 08:33] VITALS: BP 111/76; PULSE 66
== END 2024-10-20 08:32 | disposition home or self-care (01) ==
LOC: JD.ED 07:33
DX: J02.9 Acute pharyngitis, unspecified (principal); K08.89 Other specified disorders of teeth and supporting structures; H92.01 Otalgia, right ear; R51.9 Headache, unspecified; E03.9 Hypothyroidism, unspecified; Z79.899 Other long term (current) drug therapy; Z90.49 Acquired absence of other specified parts of digestive tract; Z90.710 Acquired absence of both cervix and uterus
CPT/HCPCS: 96372; 99283; J1885